=== PATIENT | female | born 1935 | race African-American/Black ===

== ENCOUNTER 2018-06-02 07:48 | Inpatient (IN) ==
[2018-06-02] MEDS ORDERED: Sod Chloride 0.9% Inj 1,000 ML IV.SIG ONE (08:48)
[2018-06-02] MEDS ORDERED: Piperacil/Tazo 3.375 GM Premix 50 ML IV.SIG ONE (08:48)
[2018-06-02] MEDS ORDERED: Vancomycin Inj 1 GM/200 ML PIGGYBACK IV.SIG ONE (08:48)
[2018-06-02] MEDS ORDERED: Vancomycin Inj 1,000 MG in Sodium Chlor 0.9% Inj 250 ML IV.SIG ONE (09:00)
--- NOTE | 2018-06-02 09:02 | ED ---
HPI General Chief Complaint: Altered Mental Status Stated Complaint: Medical/Evac Time Seen by Provider: 06/02/18 08:42 Source: family and EMS Mode of arrival: EMS Limitations: physical limitation History of Present Illness HPI narrative: 82-year-old female was brought in by EMS for altered mental status. Family member states that patient started having fever and lethargy yesterday. Patient started having difficulty breathing yesterday afternoon evening. Patient was given nebulizer treatment. Patient has history of COPD. Patient became disoriented yesterday. Patient has increasing lethargy and disorientation this morning. EMS was called. Patient was brought to the ED for evaluation. Family member reported no coughing congestion. Patient was given Tylenol for fever yesterday. Family member states that patient came in contact with sick family member recently. Patient has history of hypertension. Family member reported no history of CVA. Family member reported no history of surgery. Patient also has history of Parkinson disease. complaint: altered mental status Onset (ago): day(s) Timing confirmed by: family member Severity: moderate Consistency of symptoms: getting worse Context: unknown Associated symptoms: weakness Treatments prior to arrival: IV fluid Related Data Home Medications Medication Instructions Recorded Confirmed No Known Home Medications 06/02/18 06/02/18 Allergies Allergy/AdvReac Type Severity Reaction Status Date / Time carbidopa Allergy Lethargy Verified 06/02/18 08:57 duloxetine [From Cymbalta] Allergy Nausea Verified 06/02/18 08:57 levodopa [From Sinemet] AdvReac Lethargy Verified 06/02/18 08:57 Review of Systems Except as stated in HPI: all other systems reviewed are negative [facility] Medical History Medical History COPD (chronic obstructive pulmonary disease) (Acute) GERD (gastroesophageal reflux disease) (Acute) Hiatal hernia (Acute) Hyperlipidemia (Acute) Hypertension (Acute) Parkinsons (Acute) Sleep apnea (Acute) TIA (transient ischemic attack) (Acute) Surgical History Surgical History History of cholecystectomy (Acute) Social History Social History Substance History: Unable to Obtain Smoking Status: Unknown if ever smoked How Often Do You Have a Drink Containing Alcohol: Unable to Obtain Recent Travel in [place] within the Last 8 Weeks: No Recent Out of Country Travel within the Last 8 Weeks: No Immunization History Tetanus Immunization: Unable to Assess Hx Influenza Vaccine This Season: Unable to Assess Exam Narrative Exam Narrative: GENERAL: Well-nourished, well-developed patient. SKIN: Focused skin assessment warm/dry. HEAD: Normocephalic. EYES: No scleral icterus. No injection or drainage. Left pupil slightly larger than the right pupil. Both nonreactive. Status post cataract surgery. NECK: Supple, trachea midline. No JVD or lymphadenopathy. No meningismus CARDIOVASCULAR: Regular rate and rhythm without murmurs, gallops, or rubs. RESPIRATORY: Breath sounds equal bilaterally. No accessory muscle use. GASTROINTESTINAL: Abdomen soft, non-tender, nondistended. MUSCULOSKELETAL: No cyanosis, or edema. BACK: Nontender without obvious deformity. No CVA tenderness. Neurologic exam: Patient is lethargic lying in bed noncommunicable. Patient responded to pain stimuli. Patient does not move extremity on command. Deep tendon reflexes 1+ and equal. Negative Babinski. Course Initial Documented Vital Signs Temperature 99.9 F H 06/02/18 07:50 Pulse Rate 128 H 06/02/18 07:50 Respiratory Rate 34 H 06/02/18 07:50 Blood Pressure 134/61 06/02/18 07:50 Pulse Oximetry 94 L 06/02/18 07:50 Last Documented Vital Signs Temperature 99.9 F H 06/02/18 07:50 Pulse Rate 124 H 06/02/18 10:06 Respiratory Rate 20 06/02/18 10:06 Blood Pressure 134/61 06/02/18 07:50 Pulse Oximetry 96 06/02/18 10:06 Medical Decision Making [facility] Narrative Medical decision making narrative: 82-year-old female was found to be a EMS for altered mental status. Patient has fever, tachycardic and noncommunicable. Sepsis protocol started. Normal saline solution 1 L IV bolus. Vancomycin 1 g IV given. Zosyn 3.375 g IV given. Lab Data Lab results reviewed: Yes I reviewed the patient's lab results. Result diagrams: 06/02/18 08:20 06/02/18 08:20 Lab Results 06/02/18 06/02/18 06/02/18 Range/Units 08:20 08:20 08:20 WBC 7.4 (4.0-11.0) th/mm3 RBC 4.36 (4.00-5.30) mil/mm3 Hgb 12.0 (11.6-15.3) gm/dL Hct 37.6 (35.0-46.0) % MCV 86.2 (80.0-100.0) fL MCH 27.5 (27.0-34.0) pg MCHC 31.9 L (32.0-36.0) % RDW 16.5 (11.6-17.2) % Plt Count 149 L (150-450) th/mm3 MPV 9.7 (7.0-11.0) fL Prelim Diff (Auto) Slide review pending Neut % (Auto) 91.2 H (16.0-70.0) % Lymph % (Auto) 7.8 L (9.0-44.0) % [place] % (Auto) 0.5 (0.0-8.0) % Eos % (Auto) 0.3 (0.0-4.0) % Baso % (Auto) 0.2 (0.0-2.0) % Neut # (Auto) 6.8 (1.8-7.7) th/mm3 Lymph # (Auto) 0.6 L (1.0-4.8) th/mm3 [place] # (Auto) 0.0 (0.0-0.9) th/mm3 Eos # (Auto) 0.0 (0.0-0.4) th/mm3 Baso # (Auto) 0.0 (0.0-0.2) th/mm3 WBC Differential . Diff Scan Auto diff confirmed Differential Comment . Toxic Vacuolation Present H (None) Platelet Estimate Low L (Normal) Platelet Morphology Normal (Normal) Ovalocytes 1+ H (None) Acanthocytes (Spur) 2+ H (None) PT 13.6 H (9.8-11.6) sec INR 1.3 Ratio APTT 28.9 (24.3-30.1) sec Sodium 146 H (136-145) meq/L Potassium 3.6 (3.5-5.1) meq/L Chloride 113 H (98-107) meq/L Carbon Dioxide 17.0 L (21.0-32.0) meq/L Anion Gap 16 H (5-15) meq/L BUN 16 (7-18) mg/dL Creatinine 0.95 (0.50-1.00) mg/dL Estimated GFR 61 L (>89) mL/min Random Glucose 75 (74-106) mg/dL Lactic Acid (0.4-2.0) mmol/L Calcium 8.6 (8.5-10.1) mg/dL Total Bilirubin 0.9 (0.2-1.0) mg/dL AST 16 (15-37) U/L ALT 9 L (10-53) U/L Alkaline Phosphatase 118 H (45-117) U/L Ammonia (11-32) mcmol/L Total Creatine Kinase 75 (26-192) U/L Troponin I Less than 0.02 L (0.02-0.05) ng/mL Total Protein 6.2 L (6.4-8.2) g/dL Albumin 2.5 L (3.4-5.0) g/dL TSH 5.790 H (0.358-3.740) uIU/mL Urine Color (Yellw/Straw) Urine Clarity (Clear) Urine pH (5.0-8.5) Ur Specific [place] (1.002-1.035) Urine Protein (Neg-Trace) mg/dL Urine Glucose (UA) (Negative) mg/dL Urine Ketones (Negative) mg/dL Urine Occult Blood (Negative) Urine Nitrate (Negative) Urine Bilirubin (Negative) Urine Urobilinogen (Less than 2) mg/dL Ur Leukocyte Esterase (Negative) Urine RBC (0-3) /hpf Urine WBC (0-5) /hpf Ur Squamous Epith Cells (0-5) /hpf Urine Bacteria (None) /hpf Urine Mucus (Occasional) /lpf Micro UA Comment Urine Culture Comments 06/02/18 06/02/18 06/02/18 Range/Units 09:00 09:00 09:00 WBC (4.0-11.0) th/mm3 RBC (4.00-5.30) mil/mm3 Hgb (11.6-15.3) gm/dL Hct (35.0-46.0) % MCV (80.0-100.0) fL MCH (27.0-34.0) pg MCHC (32.0-36.0) % RDW (11.6-17.2) % Plt Count (150-450) th/mm3 MPV (7.0-11.0) fL Prelim Diff (Auto) Neut % (Auto) (16.0-70.0) % Lymph % (Auto) (9.0-44.0) % [place] % (Auto) (0.0-8.0) % Eos % (Auto) (0.0-4.0) % Baso % (Auto) (0.0-2.0) % Neut # (Auto) (1.8-7.7) th/mm3 Lymph # (Auto) (1.0-4.8) th/mm3 [place] # (Auto) (0.0-0.9) th/mm3 Eos # (Auto) (0.0-0.4) th/mm3 Baso # (Auto) (0.0-0.2) th/mm3 WBC Differential Diff Scan Differential Comment Toxic Vacuolation (None) Platelet Estimate (Normal) Platelet Morphology (Normal) Ovalocytes (None) Acanthocytes (Spur) (None) PT (9.8-11.6) sec INR Ratio APTT (24.3-30.1) sec Sodium (136-145) meq/L Potassium (3.5-5.1) meq/L Chloride (98-107) meq/L Carbon Dioxide (21.0-32.0) meq/L Anion Gap (5-15) meq/L BUN (7-18) mg/dL Creatinine (0.50-1.00) mg/dL Estimated GFR (>89) mL/min Random Glucose (74-106) mg/dL Lactic Acid 6.3 H* (0.4-2.0) mmol/L Calcium (8.5-10.1) mg/dL Total Bilirubin (0.2-1.0) mg/dL AST (15-37) U/L ALT (10-53) U/L Alkaline Phosphatase (45-117) U/L Ammonia 59 H (11-32) mcmol/L Total Creatine Kinase (26-192) U/L Troponin I (0.02-0.05) ng/mL Total Protein (6.4-8.2) g/dL Albumin (3.4-5.0) g/dL TSH (0.358-3.740) uIU/mL Urine Color Yellow (Yellw/Straw) Urine Clarity Hazy H (Clear) Urine pH 8.0 (5.0-8.5) Ur Specific [place] 1.010 (1.002-1.035) Urine Protein Negative (Neg-Trace) mg/dL Urine Glucose (UA) Negative (Negative) mg/dL Urine Ketones Negative (Negative) mg/dL Urine Occult Blood Moderate H (Negative) Urine Nitrate Positive H (Negative) Urine Bilirubin Negative (Negative) Urine Urobilinogen Less than 2 (Less than 2) mg/dL Ur Leukocyte Esterase Moderate H (Negative) Urine RBC 1 (0-3) /hpf Urine WBC 14 H (0-5) /hpf Ur Squamous Epith Cells 2 (0-5) /hpf Urine Bacteria Many H (None) /hpf Urine Mucus Few H (Occasional) /lpf Micro UA Comment Cath-culture ind Urine Culture Comments Cath-cult indicated Imaging Data Radiologist's impression: ITS Impressions Chest X-Ray 06/02/18 08:45 CONCLUSION: 1. Right basilar opacity representing either acute airspace disease or parenchymal mass. 2. Calcified ascending thoracic aorta. 3. Dorsal column stimulator. Head CT 06/02/18 08:45 CONCLUSION: 1. Advanced cerebral white matter disease characteristic of chronic microvascular ischemic changes 2. No evidence of acute infarct, hemorrhage, mass or edema. 3. Left-sided cochlear implant device. Discharge Plan Discharge Disposition Patient Disposition: 30 Still Patient Discharge Details Diagnosis: Sepsis, UTI (urinary tract infection) Physicians Team ED Provider: Gio Tinoco Primary Care Provider: Sergio Tinsley Rxs /Orders / Referrals /Forms Prescriptions: No Action No Known Home Medications RF: 0 Discharge Interventions Interventions: Vital Signs Last Done: 06/02/18 10:06 Status ED Status: With Doctor
[2018-06-02 09:48] LABS: Activated Partial Thrombo Time 28.9 sec (24.3-30.1); INR 1.3 Ratio; Prothrombin Time 13.6 sec (9.8-11.6)
[2018-06-02 09:51] LABS: Baso % (Auto) 0.2 % (0.0-2.0); Eos % (Auto) 0.3 % (0.0-4.0); Hematocrit 37.6 % (35.0-46.0); Lymph # (Auto) 0.6 th/mm3 (1.0-4.8); Lymph % (Auto) 7.8 % (9.0-44.0); Mean Corpuscular HGB Conc 31.9 % (32.0-36.0); Mean Corpuscular Hemoglobin 27.5 pg (27.0-34.0); Mean Corpuscular Volume 86.2 fL (80.0-100.0); Mean Platelet Volume 9.7 fL (7.0-11.0); Mono % (Auto) 0.5 % (0.0-8.0); Neut # (Auto) 6.8 th/mm3 (1.8-7.7); Neut % (Auto) 91.2 % (16.0-70.0); Platelet Count 149 th/mm3 (150-450); Red Blood Count 4.36 mil/mm3 (4.00-5.30); Red Cell Distribution Width 16.5 % (11.6-17.2); White Blood Count 7.4 th/mm3 (4.0-11.0)
--- NOTE | 2018-06-02 09:55 | XR ---
EXAM DATE: 06/02/2018 9:20 AM EDT AGE/SEX: 89 years / Female INDICATIONS: Sepsis alert. CLINICAL DATA: This is the patient's initial encounter. Patient reports that signs and symptoms have been present for 1 day and indicates a pain score of Nonresponsive. MEDICAL/SURGICAL HISTORY: Non-responsive. Non-responsive. COMPARISON: No prior exams available for comparison. FINDINGS: Focal parenchymal opacity is identified in the right lung base. The left lung is clear. Heart is mildly enlarged. There is diffuse calcification of the ascending thoracic aorta. Dorsal column stimulator is noted in place. CONCLUSION: 1. Right basilar opacity representing either acute airspace disease or parenchymal mass. 2. Calcified ascending thoracic aorta. 3. Dorsal column stimulator. Electronically signed by: Zachery Matthews MD 06/02/2018 9:54 AM EDT
--- NOTE | 2018-06-02 10:01 | CT ---
EXAM DATE: 06/02/2018 9:50 AM EDT AGE/SEX: 89 years / Female INDICATIONS: Altered mental status. CLINICAL DATA: This is the patient's initial encounter. Patient reports that signs and symptoms have been present for 1 day and indicates a pain score of Nonresponsive. MEDICAL/SURGICAL HISTORY: Chronic obstructive pulmonary disease. Hypertension. None. RADIATION DOSE: 56.36 CTDI (mGy) COMPARISON: No prior exams available for comparison. TECHNIQUE: CT of the head without contrast. Using automated exposure control and adjustment of the mA and/or kV according to patient size, radiation dose was kept as low as reasonably achievable to ob tain optimal diagnostic quality images. DICOM format image data is available electronically for revi ew and comparison. FINDINGS: Significant hypodensity is evident throughout the cerebral white matter. There is central volume loss with enlargement of the lateral ventricles. Subarachnoid space and cisterns are mildly prominent. There are no characteristic findings of acute infarct, hemorrhage, mass effect or edema. A left-sided cochlear implant device is noted. CONCLUSION: 1. Advanced cerebral white matter disease characteristic of chronic microvascular ischemic changes 2. No evidence of acute infarct, hemorrhage, mass or edema. 3. Left-sided cochlear implant device. Electronically signed by: Zachery Matthews MD 06/02/2018 9:59 AM EDT
[2018-06-02 10:03] LABS: Albumin 2.5 g/dL (3.4-5.0); Anion Gap 16 meq/L (5-15); Aspartate Aminotransferase 16 U/L (15-37); Blood Urea Nitrogen 16 mg/dL (7-18); Calcium 8.6 mg/dL (8.5-10.1); Chloride 113 meq/L (98-107); Glomerular Filtration Rate 61 mL/min (>89); Glucose,Random 75 mg/dL (74-106); Potassium 3.6 meq/L (3.5-5.1); Sodium 146 meq/L (136-145)
[2018-06-02 10:04] LABS: Bacteria,Urine Many /hpf; Bilirubin,Urine Negative (Negative); Clarity,Urine Hazy (Clear); Color,Urine Yellow (Yellw/Straw); Glucose,Urine (UA) Negative (Negative); Leukocyte Esterase,Urine Moderate (Negative); Mucus,Urine Few /lpf (Occasional); Nitrite,Urine Positive (Negative); Squamous Epithelial Cell,Urine 2 /hpf (0-5)
[2018-06-02 10:12] LABS: Alanine Aminotransferase 9 U/L (10-53); Alkaline Phosphatase 118 U/L (45-117); Total Protein 6.2 g/dL (6.4-8.2)
[2018-06-02 10:15] LABS: Creatine Kinase 75 U/L (26-192)
[2018-06-02 10:36] LABS: Acanthocytes 2+; Ovalocytes 1+; Platelet Morphology Normal (Normal); Toxic Vacuolation Present
--- NOTE | 2018-06-02 12:16 | P.HP ---
History of Present Illness Primary Care Physician: Sergio Tinsley Chief Complaint: AMS brought in by family History of Present Illness: Patient currently listed as a Krystal Veras actual name Keyona Singleton date of . This is a 82 year old female patient with a past medical history which includes hypertension, COPD, spinal stenosis, GERD, LVH, obstructive sleep apnea on CPAP , depression and chronic back pain who is brought in today by her family for altered mental status. Patient at this time is lethargic able to awake and tell her name and location. Information Patient is usually able to converse, watch TV and eat a regular diet. Does take megace as needed at home for appetite. Family does not recall any coughing/choking after eating or drinking. Family member states that patient started having SOB, fever and disorientation yesterday. Patient started having difficulty breathing late yesterday afternoon which was resolved after nebulizer treatment x 3 at home. Fever resolved after Tylenol. Family members do not recall any increase in urination or foul smelling urine recently. Patient had been constipated taking warm liquids and stool softeners at home with minimal results. Patient has also been on Levsin four times a day for increased oral secretions. No new medications since January 2017. This AM patient was more lethargy and disorientation this morning. EMS was called and patient was brought to the ED for evaluation. Patient was treated for possible sepsis given Vancomyacin, Zosyn and Rocephin in the ER. Per daughter at bedside patient is more alert at this time than she was earlier today at home. Past Medical History HTN COPD Spinal stenosis GERD LVH JULI on CPAP at night Depression Chronic back pain 2D echo (06/17/2011): - LV with mild concentric hypertrophy - EF 55-60% - Diastolic dysfunction - Mild thickening of the aortic valve leaflets and mitral valve leaflets Past Surgical History ORIF of left arm fracture 08/05/15 Cholecystectomy GITA with BSO L3-5 laminectomy/microdiskectomy Gastric stimulator Cochlear implant EGD with dilatation Family History Noncontributory Social History Denies alcohol, tobacco or illicit drugs Her daughter lives with her and has done so for the last 1-1/2 years due to her general decline in patient's health 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 - Diagnosis (1) Metabolic encephalopathy Estimated Total Length of Stay (Days): 3 Plans for Post Hospital Care: Not yet determined Review of Systems unobtainable due to mental status PMFSH - History History Provided By: Foundry Operator / EMT - Medical History Medical History: Medical History (Last Reviewed 06/02/18 @ 09:00 by Gio Tinoco MD) COPD (chronic obstructive pulmonary disease) GERD (gastroesophageal reflux disease) Hiatal hernia Hyperlipidemia Hypertension Parkinsons Sleep apnea TIA (transient ischemic attack) - Surgical History Surgical History: Surgical History (Last Reviewed 06/02/18 @ 09:00 by Gio Tinoco MD) History of cholecystectomy - Tobacco History Smoking Status: Unknown if ever smoked - Alcohol History How Often Do You Have a Drink Containing Alcohol: Unable to Obtain - Substance Use History Substance History: Unable to Obtain - Travel History Recent Travel in the [place] Within the Last 8 Weeks: No Recent Travel Out of the Country Within the Last 8 Weeks: No - Immunization History Tetanus Immunization: Unable to Assess Hx Influenza Vaccine This Season: Unable to Assess Medications and Allergies Active Medications: Active Medications Sodium Chloride (Ns Flush) 2 ml IV.FLUSH PRN PRN PRN Reason: FLUSH AFTER USING IV ACCESS Allergies Allergy/AdvReac Type Severity Reaction Status Date / Time carbidopa Allergy Lethargy Verified 06/02/18 08:57 duloxetine [From Cymbalta] Allergy Nausea Verified 06/02/18 08:57 levodopa [From Sinemet] AdvReac Lethargy Verified 06/02/18 08:57 Home Medications Medication Instructions Recorded Confirmed Type RX: albuterol sulfate 2.5 mg INHALATION Q4H PRN 06/02/18 06/02/18 History RX: amlodipine 5 mg PO DAILY 06/02/18 06/02/18 History RX: escitalopram oxalate 10 mg PO DAILY 06/02/18 06/02/18 History RX: gabapentin 600 mg PO QID 06/02/18 06/02/18 History RX: ipratropium-albuterol 3 ml INHALATION QID PRN 06/02/18 06/02/18 History RX: megestrol 40 mg PO BID PRN 06/02/18 06/02/18 History RX: omeprazole 20 mg PO DAILY 06/02/18 06/02/18 History calcium carbonate-vitamin D3 1 tab PO DAILY 06/02/18 06/02/18 History [Calcium 600 + D(3)] docusate sodium [Colace] 100 mg PO BID 06/02/18 06/02/18 History hyoscyamine sulfate [Levsin] 0.25 mg PO QID PRN 06/02/18 06/02/18 History Exam Vital signs: Vital Signs 06/02/18 07:50 06/02/18 08:45 06/02/18 09:28 Temperature 99.9 F H Pulse Rate 128 H Respiratory Rate 34 H Blood Pressure 134/61 Pulse Oximetry 94 L 96 100 06/02/18 10:06 06/02/18 11:00 Temperature Pulse Rate 124 H 110 H Respiratory Rate 20 17 Blood Pressure 155/73 H Pulse Oximetry 96 98 Intake & Output 06/01/18 06/02/18 06/02/18 18:59 06:59 18:59 Intake Total 0 / 0 Balance 0 / 0 Weight 68.039 kg Intake: IV 0 / 0 NS Inj 1,000 ML @ Wide Open IV. 0 / 0 SIG BOLUS ONE Rx#:[id number] Narrative: GENERAL: This is an 82 year old female patient lethargic but able to arouse, well-developed patient CARDIOVASCULAR: Regular rate and rhythm RESPIRATORY: diminished right lung base poor air movement GASTROINTESTINAL: Abdomen soft, non-tender, nondistended. hypoactive bowel sounds MUSCULOSKELETAL: Extremities without clubbing, cyanosis, or edema. BLE very weak able to wiggle bilateral toes unable to lift BLE off bed NEURO: lethargic but able to awake to voice. Oriented x 2. Moves all ext x4 very weak BLE Results - Labs CBC & Chem 7: 06/02/18 08:20 06/02/18 08:20 Labs: Laboratory Results - last 24 hr 06/02/18 06/02/18 06/02/18 08:20 08:20 08:20 WBC 7.4 RBC 4.36 Hgb 12.0 Hct 37.6 MCV 86.2 MCH 27.5 MCHC 31.9 L RDW 16.5 Plt Count 149 L MPV 9.7 Prelim Diff (Auto) Slide review pending Neut % (Auto) 91.2 H Lymph % (Auto) 7.8 L [place] % (Auto) 0.5 Eos % (Auto) 0.3 Baso % (Auto) 0.2 Neut # (Auto) 6.8 Lymph # (Auto) 0.6 L [place] # (Auto) 0.0 Eos # (Auto) 0.0 Baso # (Auto) 0.0 WBC Differential . Diff Scan Auto diff confirmed Differential Comment . Toxic Vacuolation Present H Platelet Estimate Low L Platelet Morphology Normal Ovalocytes 1+ H Acanthocytes (Spur) 2+ H PT 13.6 H INR 1.3 APTT 28.9 Sodium 146 H Potassium 3.6 Chloride 113 H Carbon Dioxide 17.0 L Anion Gap 16 H BUN 16 Creatinine 0.95 Estimated GFR 61 L Random Glucose 75 Lactic Acid Calcium 8.6 Total Bilirubin 0.9 AST 16 ALT 9 L Alkaline Phosphatase 118 H Ammonia Total Creatine Kinase 75 Troponin I Less than 0.02 L Total Protein 6.2 L Albumin 2.5 L TSH 5.790 H Urine Color Urine Clarity Urine pH Ur Specific [place] Urine Protein Urine Glucose (UA) Urine Ketones Urine Occult Blood Urine Nitrate Urine Bilirubin Urine Urobilinogen Ur Leukocyte Esterase Urine RBC Urine WBC Ur Squamous Epith Cells Urine Bacteria Urine Mucus Micro UA Comment Urine Culture Comments 06/02/18 06/02/18 06/02/18 09:00 09:00 09:00 WBC RBC Hgb Hct MCV MCH MCHC RDW Plt Count MPV Prelim Diff (Auto) Neut % (Auto) Lymph % (Auto) [place] % (Auto) Eos % (Auto) Baso % (Auto) Neut # (Auto) Lymph # (Auto) [place] # (Auto) Eos # (Auto) Baso # (Auto) WBC Differential Diff Scan Differential Comment Toxic Vacuolation Platelet Estimate Platelet Morphology Ovalocytes Acanthocytes (Spur) PT INR APTT Sodium Potassium Chloride Carbon Dioxide Anion Gap BUN Creatinine Estimated GFR Random Glucose Lactic Acid 6.3 H* Calcium Total Bilirubin AST ALT Alkaline Phosphatase Ammonia 59 H Total Creatine Kinase Troponin I Total Protein Albumin TSH Urine Color Yellow Urine Clarity Hazy H Urine pH 8.0 Ur Specific [place] 1.010 Urine Protein Negative Urine Glucose (UA) Negative Urine Ketones Negative Urine Occult Blood Moderate H Urine Nitrate Positive H Urine Bilirubin Negative Urine Urobilinogen Less than 2 Ur Leukocyte Esterase Moderate H Urine RBC 1 Urine WBC 14 H Ur Squamous Epith Cells 2 Urine Bacteria Many H Urine Mucus Few H Micro UA Comment Cath-culture ind Urine Culture Comments Cath-cult indicated - Imaging Impressions Chest X-Ray 06/02/18 08:45 CONCLUSION: 1. Right basilar opacity representing either acute airspace disease or parenchymal mass. 2. Calcified ascending thoracic aorta. 3. Dorsal column stimulator. Head CT 06/02/18 08:45 CONCLUSION: 1. Advanced cerebral white matter disease characteristic of chronic microvascular ischemic changes 2. No evidence of acute infarct, hemorrhage, mass or edema. 3. Left-sided cochlear implant device. Caprini VTE Risk Assessment Caprini VTE Risk Assessment: Moderate/High Risk (score >= 2) Caprini Risk Assessment Model: Point Value = 1 Point Value = 2 Point Value = 3 Point Value = 5 Age 41-60 Minor surgery BMI > 25 kg/m2 Swollen legs Varicose veins or History of unexplained or recurrent spontaneous Oral contraceptives or hormone replacement Sepsis (< 1 month) Serious lung disease, including pneumonia (< 1 month) Abnormal pulmonary function Acute myocardial infarction Congestive heart failure (< 1 month) History of inflammatory bowel disease Medical patient at bed rest Age 61-74 Arthroscopic surgery Major open surgery (> 45 min) Laparoscopic surgery (> 45 min) Malignancy Confined to bed (> 72 hours) Immobilizing plaster cast Central venous access Age >= 75 History of VTE Family history of VTE Factor V Leiden Prothrombin [id number] Lupus anticoagulant Anticardiolipin antibodies Elevated serum homocysteine Heparin-induced thrombocytopenia Other congenital or acquired thrombophilia Stroke (< 1 month) Elective arthroplasty Hip, pelvis, or leg fracture Acute spinal cord injury (< 1 month) Prophylaxis Regimen: Total Risk Factor Score Risk Level Prophylaxis Regimen 0-1 Low Early ambulation 2 Moderate Order ONE of the following: *Sequential Compression Device (SCD) *Heparin 5000 units SQ BID 3-4 Higher Order ONE of the following medications: *Heparin 5000 units SQ TID *Enoxaparin/Lovenox 40 mg SQ daily (WT < 150 kg, CrCl > 30 mL/min) *Enoxaparin/Lovenox 30 mg SQ daily (WT < 150 kg, CrCl > 10-29 mL/min) *Enoxaparin/Lovenox 30 mg SQ BID (WT < 150 kg, CrCl > 30 mL/min) AND/OR *Sequential Compression Device (SCD) 5 or more Highest Order ONE of the following medications: *Heparin 5000 units SQ TID (Preferred with Epidurals) *Enoxaparin/Lovenox 40 mg SQ daily (WT < 150 kg, CrCl > 30 mL/min) *Enoxaparin/Lovenox 30 mg SQ daily (WT < 150 kg, CrCl > 10-29 mL/min) *Enoxaparin/Lovenox 30 mg SQ BID (WT < 150 kg, CrCl > 30 mL/min) AND *Sequential Compression Device (SCD) Assessment and Plan - Assessment (1) Metabolic encephalopathy Code(s): G93.41 - Metabolic encephalopathy Status: Acute Plan: AMS, metabolic encephalopathy RLL pna, possible aspiration pna COPD UTI Patient currently listed as a Krystal Veras actual name Keyona Singleton date of . This is a 82 year old female patient with a past medical history which includes hypertension, COPD, spinal stenosis, GERD, LVH, obstructive sleep apnea on CPAP , depression and chronic back pain who is brought in today by her family for altered mental status. - Family member states that patient started having SOB, fever and disorientation yesterday. Patient started having difficulty breathing late yesterday afternoon -This AM patient was more lethargy and disorientation this morning. EMS was called and patient was brought to the ED for evaluation. Patient was treated for possible sepsis given Vancomyacin, Zosyn and Rocephin in the ER. Per daughter at bedside patient is more alert at this time than she was earlier today at home. - LA 6.3 - CT head reviewed and reveals: 1. Advanced cerebral white matter disease characteristic of chronic microvascular ischemic changes 2. No evidence of acute infarct, hemorrhage, mass or edema. 3. Left-sided cochlear implant device. - CXR reviewed and reveals: 1. Right basilar opacity representing either acute airspace disease or parenchymal mass. 2. Calcified ascending thoracic aorta. 3. Dorsal column stimulator - speech therapy consulted - Image reviewed with family members at bedside - CT chest ordered top further evaluate - Duonebs Q6H while awake and PRN - UA reviewed and reveals: positive nitrates, moderate Leukocyte Esterase, many bacteria - Urine culture pending Elevated ammonia Constipation on admission Ammonia 59 lactulose daily repeat ammonia level in AM KUB stool softeners HTN Resume home amlodipine monitor BP GERD Continue home omeprazole Depression Continue home Lexapro daily PT consulted DVT prophylaxis with SCDs Discussed CODE status with patient and patient's family at bedside - Full Code at this time
[2018-06-02] MEDS ORDERED: Acetaminophen 325 MG Tablet PO PRN (12:36)
[2018-06-02] MEDS ORDERED: Sodium Chloride 0.45 % Inj 1,000 ML IV.CONT SCH (12:45)
--- NOTE | 2018-06-02 13:56 | XR ---
EXAM DATE: 06/02/2018 1:38 PM EDT AGE/SEX: 89 years / Female INDICATIONS: Constipation. CLINICAL DATA: This is the patient's initial encounter. Patient reports that signs and symptoms have been present for 1 day and indicates a pain score of Nonresponsive. MEDICAL/SURGICAL HISTORY: Non-responsive. Non-responsive. COMPARISON: No prior exams available for comparison. FINDINGS: There is some air distention of the gastric lumen. Stool is identified in the rectal vault. Otherwis e, paucity of air within the bowel loops. No pneumoperitoneum. Bibasilar atelectatic changes with nato e elevation of the right hemidiaphragm. Spinal stimulator with tip in the mid dorsal spine. CONCLUSION: 1. Stool in the rectal vault. Air distention of the gastric lumen. Otherwise, nonobstructive bowel g as pattern with a velocity of air throughout the abdomen. 2. Spinal stimulator tip in the mid dorsal spine. Electronically signed by: True Ayoub MD 06/02/2018 1:55 PM EDT
[2018-06-02] MEDS ORDERED: Sod Phosphate/Sod Biphosphate (Adult) Enema 133 ML Bottle RECTAL ONE (15:05)
--- NOTE | 2018-06-02 15:44 | CT ---
EXAM DATE: 06/02/2018 3:21 PM EDT AGE/SEX: 89 years / Female INDICATIONS: ABNORMAL CHEST XRAY,MASS CLINICAL DATA: This is the patient's initial encounter. Patient reports that signs and symptoms have been present for 1 day and indicates a pain score of Nonresponsive. MEDICAL/SURGICAL HISTORY: Chronic obstructive pulmonary disease. Hypertension. PARKINSON None. RADIATION DOSE: 12.15 CTDI (mGy) COMPARISON: No prior exams available for comparison. TECHNIQUE: Multiple contiguous axial images were obtained through the chest without contrast. Image s were obtained in suspended respiration using multiple row detector helical technique. Using automa mazin exposure control and adjustment of the mA and/or kV according to patient size, radiation dose was kept as low as reasonably achievable to obtain optimal diagnostic quality images. DICOM format imag e data is available electronically for review and comparison. FINDINGS: Lungs: Subpleural airspace disease is identified in the right lung base. There is minimal atelectasi s in the lingula. There are no suspicious pulmonary masses. Mediastinum: Heart is mildly enlarged. The ascending thoracic aorta is diffusely calcified. The esop hagus is distended and fluid-filled. There are no mediastinal masses or evidence of lymphadenopathy. Pleurae: Small right pleural effusion is noted. Axillae: Unremarkable. Bony Structures: Bones are demineralized. Dorsal column stimulator is identified in the thoracic reg ion. Miscellaneous: A 4.5 cm density mass is identified within the left hepatic lobe. Absence of the righ t breast is noted. CONCLUSION: 1. Right basilar subpleural airspace disease and small effusion. 2. No suspicious pulmonary masses. 3. Distended fluid-filled fluid-filled esophagus 4. Status post right mastectomy. 5. Dorsal column stimulator. Electronically signed by: Zachery Matthews MD 06/02/2018 3:43 PM EDT
[2018-06-02] MEDS: Piperacil/Tazo 3.375 GM Premix 50 ML IV.SIG SCH ×2 (17:48→20:57)
--- NOTE | 2018-06-02 19:12 | ECG ---
Date Performed: 06/02/2018 Time Performed: 07:50:14 PTAGE: 89 years EKG: PROBABLE SINUS TACHYCARDIA CANNOT RULE OUT ATRIAL FLUTTER WITH 2:1 HEART BLOCK NO PREVIOUS TRACING DOCTOR: Michele Oden Interpretating Date/Time 06/02/2018 19:11:22
[2018-06-02] MEDS: Senna/Docusate Sodium 8.6/50 MG Tablet PO SCH (20:58)
[2018-06-02] MEDS: Aspirin 300 MG Supp RECTAL SCH (20:58)
[2018-06-02] MEDS ORDERED: Sodium Chlor 0.9% Inj 500 ML IV.SIG SCH (21:00)
--- NOTE | 2018-06-02 21:02 | CT ---
EXAM DATE: 06/02/2018 8:51 PM EDT AGE/SEX: 89 years / Female INDICATIONS: Facial droop. CLINICAL DATA: This is the patient's initial encounter. Patient reports that signs and symptoms have been present for 1 day and indicates a pain score of Nonresponsive. MEDICAL/SURGICAL HISTORY: Chronic obstructive pulmonary disease. Gastroesophageal reflux disease. Hiatal hernia. Hypertension, Parkinson's, TIA. Cholecystectomy. Cochlear implant. RADIATION DOSE: 38.35 CTDI (mGy) COMPARISON: [facility] [place]. . TECHNIQUE: CT of the head without contrast. Using automated exposure control and adjustment of the mA and/or kV according to patient size, radiation dose was kept as low as reasonably achievable to ob tain optimal diagnostic quality images. DICOM format image data is available electronically for revi ew and comparison. FINDINGS: Large amount of metallic streak artifact from patient's left cochlear implant again noted. No intracr anial hemorrhage or hematoma demonstrated. No mass, mass effect or midline shift seen. Chronic low-at tenuation in the periventricular white matter again noted. CONCLUSION: 1. Limited study without evidence of an acute intracranial abnormality. 2. Chronic white matter changes are again noted. Electronically signed by: Sandeep Wilkinson MD 06/02/2018 9:01 PM EDT
[2018-06-02] MEDS ORDERED: Dextrose 50% in Water Syringe 50 ML ONE ×2 (21:08→22:42)
--- NOTE | 2018-06-02 21:23 | P.PN ---
Subjective Interval history: I was contacted to evaluate patient regarding altered mental status with reported facial droop. I spoke with Dr. Doherty who admitted the patient earlier today and he said that he did not notice much of a facial droop on his evaluation earlier this morning. Family reports that patient actually had a facial droop intermittently throughout the day but improved with IV fluid and antibiotics earlier today. However when she came up to the intensive care unit around 5 PM they noted she had more of a facial droop particularly of the left lower lip. She is also been somewhat less responsive over the last couple of hours. She was admitted earlier today for sepsis likely associated with pneumonia and possibly urinary etiology as well. Repeat CT brain tonight shows no acute findings. I did review her labs and noted her sugar to be 75 earlier today so I did a stat Accu-Chek here and her bedside glucose was 33. We have now administered D50 and will await further evaluation of her mentation and responsiveness. I have also initiated the hypoglycemic protocol. Physical Exam Vital signs: Vital Signs 06/02/18 07:50 06/02/18 08:45 06/02/18 09:28 Temperature 99.9 F H Pulse Rate 128 H Respiratory Rate 34 H Blood Pressure 134/61 Pulse Oximetry 94 L 96 100 06/02/18 10:06 06/02/18 11:00 06/02/18 14:14 Temperature Pulse Rate 124 H 110 H 108 H Respiratory Rate 20 17 18 Blood Pressure 155/73 H 117/56 L Pulse Oximetry 96 98 06/02/18 15:28 06/02/18 18:25 Temperature 97.6 F Pulse Rate 110 H Respiratory Rate 20 18 Blood Pressure 110/55 L 97/57 L Pulse Oximetry 96 96 Intake & Output 06/02/18 06/02/18 06/03/18 06:59 18:59 06:59 Intake Total 0 / 0 Balance 0 / 0 Weight 68.039 kg Intake: IV 0 / 0 NS Inj 1,000 ML @ Wide Open IV. 0 / 0 SIG BOLUS ONE Rx#:[id number] Narrative: GENERAL: Lethargic. Minimally responsive initially. Possibly 15 minutes after sugar administration patient was able to open her eyes spontaneously and was able to squeeze my hands with both of her upper extremities to command. SKIN: Xerotic. HEAD: Normocephalic. Extraocular motion intact. Pupils equally round and reactive. EYES: No scleral icterus. No injection or drainage. NECK: Supple, trachea midline. No JVD or lymphadenopathy. CARDIOVASCULAR: Regular rate and rhythm without murmurs, gallops, or rubs. Rate approximately 110 on my exam. RESPIRATORY: Breath sounds equal bilaterally. No accessory muscle use. GASTROINTESTINAL: Abdomen soft, non-tender, nondistended. Bowel sounds normal peer MUSCULOSKELETAL: No cyanosis, or edema. Chronic posttraumatic changes left upper extremity. Patient was able to fur buyer with both upper extremities to command after sugar administration BACK: Nontender without obvious deformity. No CVA tenderness. Results - Labs CBC & Chem 7: 06/02/18 08:20 06/02/18 08:20 Laboratory Results - last 24 hr 06/02/18 06/02/18 06/02/18 08:20 08:20 08:20 WBC 7.4 RBC 4.36 Hgb 12.0 Hct 37.6 MCV 86.2 MCH 27.5 MCHC 31.9 L RDW 16.5 Plt Count 149 L MPV 9.7 Prelim Diff (Auto) Slide review pending Neut % (Auto) 91.2 H Lymph % (Auto) 7.8 L Stark % (Auto) 0.5 Eos % (Auto) 0.3 Baso % (Auto) 0.2 Neut # (Auto) 6.8 Lymph # (Auto) 0.6 L Stark # (Auto) 0.0 Eos # (Auto) 0.0 Baso # (Auto) 0.0 WBC Differential . Diff Scan Auto diff confirmed Differential Comment . Toxic Vacuolation Present H Platelet Estimate Low L Platelet Morphology Normal Ovalocytes 1+ H Acanthocytes (Spur) 2+ H PT 13.6 H INR 1.3 APTT 28.9 Sodium 146 H Potassium 3.6 Chloride 113 H Carbon Dioxide 17.0 L Anion Gap 16 H BUN 16 Creatinine 0.95 Estimated GFR 61 L Random Glucose 75 Lactic Acid Calcium 8.6 Total Bilirubin 0.9 AST 16 ALT 9 L Alkaline Phosphatase 118 H Ammonia Total Creatine Kinase 75 Troponin I Less than 0.02 L Total Protein 6.2 L Albumin 2.5 L TSH 5.790 H Urine Color Urine Clarity Urine pH Ur Specific Byron Urine Protein Urine Glucose (UA) Urine Ketones Urine Occult Blood Urine Nitrate Urine Bilirubin Urine Urobilinogen Ur Leukocyte Esterase Urine RBC Urine WBC Ur Squamous Epith Cells Urine Bacteria Urine Mucus Micro UA Comment Urine Culture Comments 06/02/18 06/02/18 06/02/18 09:00 09:00 09:00 WBC RBC Hgb Hct MCV MCH MCHC RDW Plt Count MPV Prelim Diff (Auto) Neut % (Auto) Lymph % (Auto) Stark % (Auto) Eos % (Auto) Baso % (Auto) Neut # (Auto) Lymph # (Auto) Stark # (Auto) Eos # (Auto) Baso # (Auto) WBC Differential Diff Scan Differential Comment Toxic Vacuolation Platelet Estimate Platelet Morphology Ovalocytes Acanthocytes (Spur) PT INR APTT Sodium Potassium Chloride Carbon Dioxide Anion Gap BUN Creatinine Estimated GFR Random Glucose Lactic Acid 6.3 H* Calcium Total Bilirubin AST ALT Alkaline Phosphatase Ammonia 59 H Total Creatine Kinase Troponin I Total Protein Albumin TSH Urine Color Yellow Urine Clarity Hazy H Urine pH 8.0 Ur Specific Byron 1.010 Urine Protein Negative Urine Glucose (UA) Negative Urine Ketones Negative Urine Occult Blood Moderate H Urine Nitrate Positive H Urine Bilirubin Negative Urine Urobilinogen Less than 2 Ur Leukocyte Esterase Moderate H Urine RBC 1 Urine WBC 14 H Ur Squamous Epith Cells 2 Urine Bacteria Many H Urine Mucus Few H Micro UA Comment Cath-culture ind Urine Culture Comments Cath-cult indicated 06/02/18 12:52 WBC RBC Hgb Hct MCV MCH MCHC RDW Plt Count MPV Prelim Diff (Auto) Neut % (Auto) Lymph % (Auto) Stark % (Auto) Eos % (Auto) Baso % (Auto) Neut # (Auto) Lymph # (Auto) Stark # (Auto) Eos # (Auto) Baso # (Auto) WBC Differential Diff Scan Differential Comment Toxic Vacuolation Platelet Estimate Platelet Morphology Ovalocytes Acanthocytes (Spur) PT INR APTT Sodium Potassium Chloride Carbon Dioxide Anion Gap BUN Creatinine Estimated GFR Random Glucose Lactic Acid 5.8 H* Calcium Total Bilirubin AST ALT Alkaline Phosphatase Ammonia Total Creatine Kinase Troponin I Total Protein Albumin TSH Urine Color Urine Clarity Urine pH Ur Specific Byron Urine Protein Urine Glucose (UA) Urine Ketones Urine Occult Blood Urine Nitrate Urine Bilirubin Urine Urobilinogen Ur Leukocyte Esterase Urine RBC Urine WBC Ur Squamous Epith Cells Urine Bacteria Urine Mucus Micro UA Comment Urine Culture Comments - Imaging Impressions Abdomen X-Ray 06/02/18 00:00 CONCLUSION: 1. Stool in the rectal vault. Air distention of the gastric lumen. Otherwise, nonobstructive bowel gas pattern with a velocity of air throughout the abdomen. 2. Spinal stimulator tip in the mid dorsal spine. Chest CT 06/02/18 00:00 CONCLUSION: 1. Right basilar subpleural airspace disease and small effusion. 2. No suspicious pulmonary masses. 3. Distended fluid-filled fluid-filled esophagus 4. Status post right mastectomy. 5. Dorsal column stimulator. Chest X-Ray 06/02/18 08:45 CONCLUSION: 1. Right basilar opacity representing either acute airspace disease or parenchymal mass. 2. Calcified ascending thoracic aorta. 3. Dorsal column stimulator. Head CT 06/02/18 08:45 CONCLUSION: 1. Advanced cerebral white matter disease characteristic of chronic microvascular ischemic changes 2. No evidence of acute infarct, hemorrhage, mass or edema. 3. Left-sided cochlear implant device. Head CT 06/02/18 20:37 CONCLUSION: 1. Limited study without evidence of an acute intracranial abnormality. 2. Chronic white matter changes are again noted. Assessment and Plan - Assessment (1) Sepsis Code(s): A41.9 - Sepsis, unspecified organism Status: Acute Plan: We will continue IV fluids. IV bolus given. Will discuss case with critical care medicine and have actually placed a call out to Dr. Morin (2) Metabolic encephalopathy Code(s): G93.41 - Metabolic encephalopathy Status: Acute Plan: Most recent mental status change likely associated with underlying hypoglycemia. Will initiate hypoglycemic protocol and monitor closely. No change on CT brain noted. Do not strongly suspect large stroke given rapid improvement in symptoms with sugar administration and the fact that she has no reflexive hypertension. - Plan Code Status: full Discussed Condition With: family, nurse, Dr Doherty This case further with Dr. Morin around 10:30 I have requested formal critical care consult as patient's mean arterial pressure still somewhat low around 45- 50 despite bolus given earlier. He will evaluate and assist with patient care. His assistance is much appreciated. (1) Sepsis Qualifiers: Sepsis type: sepsis due to unspecified organism Qualified Code(s): A41.9 - Sepsis, unspecified organism
[2018-06-02] MEDS: Norepinephrine Inj 16 MG in Sodium Chlor 0.9% Inj 234 ML IV.CONT PRN (22:30)
[2018-06-02] MEDS ORDERED: Sodium Chlor 0.9% Inj 500 ML IV.SIG ONE (22:31)
--- NOTE | 2018-06-02 22:32 | P.CONCC ---
History of Present Illness Service: Critical care medicine critical care medicine Consult date: 06/02/18 Requesting Physician: Kit Espino Reason for Consult: Respiratory failure/hypotension Primary Care Provider: Sergio Tinsley Chief Complaint: AMS brought in by family History of Present Illness: This is a 82-year-old aa female. Date of admission 06/02/2018. Date of consultation 06/02/2018. Past medical history includes Parkinson's disease, history of TIA, severe spinal stenosis, hypertension, hyperlipidemia, JULI, COPD , hiatal hernia, gastroesophageal reflux disease and depression. He has LVH and chronic low back pain. She presented to [place] today secondary to altered mental status. According to records, patient was having difficulty breathing yesterday which resolved after nebulizer treatment 3. She has had a fever which resolved with acetaminophen. She has noticed increasing secretions. In the ED, workup showed no acute findings. Patient was given vancomycin Pipracil/tazobactam and ceftriaxone. Blood cultures 2 and UA currently are pending at time of dictation. CT of the thorax were performed which revealed right basilar subpleural airspace disease, distended fluid-filled esophagus, a dorsal column stimulator and a 4.5 cm mass within the left hepatic lobe. Patient was hypoglycemic on admission and remained apical to be altered. Recent blood sugar was 33. She became hypotensive. A central line was emergently placed she was emergently intubated for airway protection. She is currently on norepinephrine drip at 12 mg/min and received vancomycin Pipracil/ tazobactam. 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 - Medical History Medical History: Medical History (Last Reviewed 06/02/18 @ 23:31 by Justice Morin MD) COPD (chronic obstructive pulmonary disease) GERD (gastroesophageal reflux disease) Hiatal hernia Hyperlipidemia Hypertension Parkinsons Sleep apnea TIA (transient ischemic attack) - Surgical History Surgical History: Surgical History (Last Reviewed 06/02/18 @ 23:31 by Justice Morin MD) History of cholecystectomy - Tobacco History Second Hand Smoke Exposure: No Smoking Status: Unknown if ever smoked - Alcohol History How Often Do You Have a Drink Containing Alcohol: Unable to Obtain - Substance Use History Substance History: Unable to Obtain - Travel History Recent Travel in the [place] Within the Last 8 Weeks: No Recent Travel Out of the Country Within the Last 8 Weeks: No - Immunization History Tetanus Immunization: Unable to Assess Hx Influenza Vaccine This Season: Unable to Assess Medications and Allergies Active Medications: Active Medications Acetaminophen (Tylenol) 650 mg PO Q4H PRN PRN Reason: Temp > 100.4 Albuterol (Duoneb Neb (Prn)) 1 ampul NEB Q4HR NEB PRN PRN Reason: SOB/wheezing Amlodipine Besylate (Norvasc) 5 mg PO DAILY [facility] Aspirin (Aspirin Supp) 300 mg RECTAL DAILY [facility] Last Admin: 06/02/18 20:58 Dose: 300 mg Escitalopram Oxalate (Lexapro) 10 mg PO DAILY [facility] Hyoscyamine (Levsin) 0.25 mg PO QID PRN PRN Reason: SECRETIONS Sodium Chloride (1/2 Normal Saline Inj) 1,000 mls @ 75 mls/hr IV.CONT .[id number] [facility] Last Admin: 06/02/18 14:50 Dose: 75 mls/hr Piperacillin/Tazobactam/Dextrose (Zosyn 3.375 Gm Premix) 50 mls @ 100 mls/hr IV.SIG Q6H [facility] Last Admin: 06/02/18 20:57 Dose: 100 mls/hr Sodium Chloride (Ns Inj) 500 mls @ 0 mls/hr IV.SIG BOLUS ONE Stop: 06/02/18 22:32 Norepinephrine Bitartrate 16 (mg/ Sodium Chloride) 250 mls @ 1.87 mls/hr IV.CONT TITRATE PRN; Protocol PRN Reason: See Protocol Lactulose (Lactulose Liq) 30 ml PO DAILY [facility] Last Admin: 06/02/18 14:50 Dose: 30 ml Pantoprazole Sodium (Protonix) 20 mg PO DAILY [facility] Senna/Docusate Sodium (Akiko-Colace) 1 tab PO BID [facility] Last Admin: 06/02/18 20:58 Dose: Not Given Sodium Chloride (Ns Flush) 2 ml IV.FLUSH PRN PRN PRN Reason: FLUSH AFTER USING IV ACCESS Terbutaline Sulfate (Brethine Inj) 1 mg SQ UNSCH PRN PRN Reason: For Extravasation Allergies Allergy/AdvReac Type Severity Reaction Status Date / Time carbidopa Allergy Lethargy Verified 06/02/18 08:57 duloxetine [From Cymbalta] Allergy Nausea Verified 06/02/18 08:57 levodopa [From Sinemet] AdvReac Lethargy Verified 06/02/18 08:57 Home Medications Medication Instructions Recorded Confirmed Type albuterol sulfate 2.5 mg INHALATION Q4H PRN 06/02/18 06/02/18 History amlodipine 5 mg PO DAILY 06/02/18 06/02/18 History calcium carbonate-vitamin D3 1 tab PO DAILY 06/02/18 06/02/18 History [Calcium 600 + D(3)] docusate sodium [Colace] 100 mg PO BID 06/02/18 06/02/18 History escitalopram oxalate 10 mg PO DAILY 06/02/18 06/02/18 History gabapentin 600 mg PO QID 06/02/18 06/02/18 History hyoscyamine sulfate [Levsin] 0.25 mg PO QID PRN 06/02/18 06/02/18 History ipratropium-albuterol 3 ml INHALATION QID PRN 06/02/18 06/02/18 History megestrol 40 mg PO BID PRN 06/02/18 06/02/18 History omeprazole 20 mg PO DAILY 06/02/18 06/02/18 History Physical Exam Vital signs: Vital Signs 06/02/18 07:50 06/02/18 08:45 06/02/18 09:28 Temperature 99.9 F H Pulse Rate 128 H Respiratory Rate 34 H Blood Pressure 134/61 Pulse Oximetry 94 L 96 100 06/02/18 10:06 06/02/18 11:00 06/02/18 14:14 Temperature Pulse Rate 124 H 110 H 108 H Respiratory Rate 20 17 18 Blood Pressure 155/73 H 117/56 L Pulse Oximetry 96 98 06/02/18 15:28 06/02/18 18:25 Temperature 97.6 F Pulse Rate 110 H Respiratory Rate 20 18 Blood Pressure 110/55 L 97/57 L Pulse Oximetry 96 96 Intake & Output 06/02/18 06/02/18 06/03/18 06:59 18:59 06:59 Intake Total 0 / 0 Balance 0 / 0 Weight 68.039 kg Intake: IV 0 / 0 NS Inj 1,000 ML @ Wide Open IV. 0 / 0 SIG BOLUS ONE Rx#:[id number] Narrative: GENERAL: Critically ill a female currently resting in bed orotracheally intubated SKIN: Warm and dry. No rash. HEAD: Normocephalic. EYES: No scleral icterus. No injection or drainage. NECK: Supple, trachea midline. No JVD or lymphadenopathy. Left IJ is clean dry and intact CARDIOVASCULAR: Tachycardic, RR. Without murmurs, gallops, or rubs. RESPIRATORY: Breath sounds equal bilaterally. No accessory muscle use. GASTROINTESTINAL: Abdomen soft, non-tender, nondistended. MUSCULOSKELETAL: No cyanosis, or edema. Right mastectomy noted. BACK: Nontender without obvious deformity. No CVA tenderness. neuro: Questionable facial droop. Currently withdrawing to noxious stimulation bilateral upper and lower extremities. Assessment and Plan - Assessment and Plan Plan: Neuro/Psych: Acute toxic metabolic encephalopathy History of TIAs Parkinson's disease Written for propofol/fentanyl drip for sedation/analgesia while intubated Goal of RASS -2 Daily sedation vacation Acetaminophen 650 mg by tube every 6 hours as needed fever CT brain 06/02 revealed no acute intracranial findings Holding escitalopram 10 mg daily/home medication. Holding gabapentin 600 mg 3 times daily. Continue aspirin 3 mg per rectum for now EEG brain ordered. CV: Severe sepsis History of essential hypertension History of hyperlipidemia Lactic acidosis History of LVH Currently D5 LR at 100 cc an hour Norepinephrine to maintain mean arterial pressure greater than equal to 92% Serial lactates until cleared Check troponin/CPK and echocardiogram in a.m. 2D echo 2010 revealed LVH. EF 55 6%. Diastolic dysfunction. Mild thickening aortic valve and mitral valve. Resp: Acute hypoxemic respiratory failure History of COPD Obstructive sleep apnea on CPAP at night PRVC 16/500/1/5/100 Ventilator bundle Albuterol/ipratropium aerosols every 4 hours with albuterol aerosols every 2 hours. Dyspnea Spontaneous breathing trial CT thorax revealed right basilar subpleural airspace disease and small pleural effusion. No masses. Follow-up on chest x-ray/ABG post intubation GI: Gastroesophageal reflux disease Hiatal hernia 4.5 cm left hepatic mass Transaminitis Patient is on omeprazole 20 mg daily at home. Holding megestrol 40 mg twice daily NGT to LIWS Lansoprazole for GI prophylaxis Docusate sodium/senna 1 tablet for bowel regimen Checking tumor markers CEA, CA-19-9, alpha-fetoprotein and hCG CT abdomen/pelvis revealed a 4.5 cm left hepatic mass Hepatitis panel/CPK ordered : English catheter for accurate I's and O's in a critically ill patient Endo: Hypoglycemia Elevated TSH Sliding scale insulin with Accu-Cheks to maintain euglycemia/every 4 hours low protocol aspart insulin TSH is elevated at 5.7. Check free T4/T3 Check cortisol level Renal: SCOUT Monitor urine output Accurate I's and O's Creatinine currently 2.26. Recheck in a.m. / Urine eos, Na+ and Cr pending Abd CT r/o hydro Heme: Thrombocytopenia Monitor CBC daily. Follow trends No indication for transfusion of blood products at this time ID: Severe sepsis of unclear source Day #1 vancomycin and piperacillin/tazobactam Blood cultures 2, urine 06/02 ordered. Sputum and influenza a and B ordered. FEN: Hypernatremia Change fluid to LR/D5 at 100 cc an hour. Will bolus with a liter LR at currently. Replace electrolytes per ICU electrolyte protocol MSK: Severe spinal stenosis with a history of dorsal column stimulator PT evaluate and treat Access -left IJ CVL day #1 Prophylaxis -GI -lansoprazole -DVT -SCD/heparin subcu 35 minutes critical care time consultation
[2018-06-02] MEDS ORDERED: Etomidate Inj 40 MG/20 ML Vial IV.PUSH ONE (22:51)
[2018-06-02 23:08] LABS: Alanine Aminotransferase 61 U/L (10-53); Alkaline Phosphatase 78 U/L (45-117); Anion Gap 15 meq/L (5-15); Aspartate Aminotransferase 331 U/L (15-37); Blood Urea Nitrogen 27 mg/dL (7-18); Calcium 7.8 mg/dL (8.5-10.1); Carbon Dioxide 17.8 meq/L (21.0-32.0); Chloride 116 meq/L (98-107); Glomerular Filtration Rate 23 mL/min (>89); Glucose,Random 93 mg/dL (74-106); Potassium 3.8 meq/L (3.5-5.1); Sodium 149 meq/L (136-145)
--- NOTE | 2018-06-02 23:13 | P.PCN ---
Date of procedure: 06/02/18 Pre-op diagnosis: Acute respiratory failure Post-op diagnosis: same Procedure: DATE: 06/02/2018 PROCEDURE: Orotracheal intubation INDICATION: Unresponsive DETAILS OF PROCEDURE The patient was placed in optimal position and preoxygenated with 100% FiO2 via bag valve mask. At the start oxygen saturation was 98%. The patient was administered 20 milligrams etomidate IV. I entered the oropharynx with a size 4 laryngoscope blade and obtained a grade 2 view of the airway. On single attempt a size 8.0 cuffed endotracheal tube was passed through the vocal cords. Correct tube location was confirmed with end tidal CO2 detector and by auscultating over bilateral lung barnett. The endotracheal tube was secured with adhesive tape at a depth of 23 cm at the lips. The patient was connected to the ventilator. The patient tolerated the procedure well without any apparent complications. Oxygen saturations were maintained greater than 95% all times. STAT chest x-ray pending at time of dictation.
--- NOTE | 2018-06-02 23:14 | P.PCN ---
Date of procedure: 06/02/18 Pre-op diagnosis: Acute respiratory failure Post-op diagnosis: same Procedure: DATE: 06/02/2018 CENTRAL LINE PLACEMENT: Left IJ vein. Ultrasound-guided INDICATION: Central venous access CONSENT Informed consent for procedure was obtained. DESCRIPTION OF THE PROCEDURE The patient was placed in supine position. The skin was cleansed with Chloraprep. Additional barrier precautions included large sterile drape, sterile gloves, sterile gown, face mask, and hat. 1 % lidocaine was used for local anesthesia. Under direct ultrasound guidance and on initial attempt, the vein was accessed with an introducer needle. The guide wire was advanced and the tract was dilated. Using Seldinger technique a 7 [place] 20 cm antimicrobial coated triple-lumen catheter was advanced to a depth of 20 centimeters. The guide wire was removed. All ports had good return of dark venous blood and flushed easily with saline. The central line was secured with 2.0 silk. A sterile dressing with antibiotic disc was applied. ESTIMATED BLOOD LOSS: Minimal COMPLICATIONS: No apparent complications. STAT chest x-ray pending at time of dictation
[2018-06-02] MEDS ORDERED: Dextrose 5%/NaCl 0.9% Inj 1,000 ML IV.CONT SCH (23:15)
[2018-06-02] MEDS ORDERED: fentaNYL 10 mcg/mL Premix Drip 2,500 MCG/250 ML BAG IV.SIG PRN (23:18)
[2018-06-02] MEDS ORDERED: Propofol 1000 mg/100 ml Inj 1,000 MG/100 ML BOTTLE IV.CONT PRN (23:18)
[2018-06-02] MEDS ORDERED: Vancomycin Consult Pharmacy OTHER ONE (23:19)
[2018-06-02] MEDS ORDERED: Potassium Chloride 25 MEQ Effervescent Tablet PO PRN (23:43)
[2018-06-02] MEDS ORDERED: Potassium Phosphate 500 MG Soluble Tablet PO PRN ×2 (23:43)
[2018-06-02] MEDS ORDERED: Magnesium Oxide 400 MG Tablet PO PRN (23:43)
[2018-06-02] MEDS ORDERED: Potassium Chlor 40 mEq Premix 40 MEQ/100 ML PIGGYBACK IV.SIG PRN ×2 (23:43)
[2018-06-02] MEDS ORDERED: Potassium Phosphate Inj 30 MMOL in Sodium Chlor 0.9% Inj 250 ML IV.SIG PRN (23:43)
[2018-06-02] MEDS ORDERED: Magnesium Sulfate Inj 2 GM in Sodium Chlor 0.9% Inj 96 ML IV.SIG PRN (23:43)
[2018-06-02] MEDS ORDERED: Sodium Phosphate Inj 30 MMOL in Sodium Chlor 0.9% Inj 250 ML IV.SIG PRN (23:43)
[2018-06-02] MEDS ORDERED: Potassium Chlor 20 mEq Premix 20 MEQ/100 ML PIGGYBACK IV.SIG PRN ×2 (23:43)
[2018-06-02] MEDS ORDERED: Magnesium Sulfate Inj 4 GM in Sodium Chlor 0.9% Inj 92 ML IV.SIG PRN (23:43)
[2018-06-02] MEDS ORDERED: Dextrose 50% in Water 50 ML Vial IV.PUSH PRN (23:45)
[2018-06-03] MEDS ORDERED: Oral Hygiene Kit OROPHARYNG SCH
[2018-06-03 00:16] LABS: ABG Base Excess -13.1 mmol/L (-2-2); ABG PCO2 33 mmHg (38-42); ABG PO2 321 mmHG (61-120)
[2018-06-03] MEDS: Vasopressin Inj 40 UNIT in Sodium Chlor 0.9% Inj 98 ML IV.CONT SCH ×2 (00:18→18:42)
[2018-06-03] MEDS: Artificial Tears Opth Drops 15 ML Bottle EACH EYE SCH ×3 (00:19→15:46)
--- NOTE | 2018-06-03 00:23 | XR ---
EXAM DATE: 06/03/2018 12:19 AM EDT AGE/SEX: 89 years / Female INDICATIONS: Post intubation, central line placement. CLINICAL DATA: This is the patient's subsequent encounter. Patient reports that signs and symptoms h ave been present for 1 day and indicates a pain score of Nonresponsive. MEDICAL/SURGICAL HISTORY: Non-responsive. Non-responsive. COMPARISON: C, CHEST 1V SINGLE AP, 06/02/2018. . FINDINGS: ETT approximately 4 cm above the shima. NGT just beyond the GE junction. Left IJ central line with t ip near the atrial caval junction. Redemonstration of small right pleural effusion and associated rig ht lower lobe airspace disease. Cardiomediastinal contours are within normal limits. Remainder of exa m is unchanged. CONCLUSION: 1. ETT and NGT in good position. 2. Left IJ central line in good position without pneumothorax. 3. Redemonstration of small right pleural effusion and associated right lower lobe airspace disease. Electronically signed by: Easton Mark MD 06/03/2018 12:21 AM EDT
[2018-06-03] MEDS ORDERED: Sodium Bicarbonate 8.4% Inj 50 MEQ in Sodium Chloride 0.45 % Inj 950 ML IV.CONT SCH (02:00)
[2018-06-03] MEDS ORDERED: Piperacil/Tazo 4.5 GM Premix 4.5 GM/100 ML BAG IV.SIG SCH (03:00)
[2018-06-03] MEDS: Dextrose 5%/NaCl 0.45% Inj 1,000 ML IV.CONT SCH ×3 (03:11→21:01)
[2018-06-03] MEDS: Insulin NovoLOG Aspart Correctional Sugar Inj SQ SCH ×5 (04:00→20:00)
[2018-06-03] MEDS: Oral Hygiene Kit OROPHARYNG SCH ×4 (04:00→18:44)
[2018-06-03 04:22] LABS: Hematocrit 30.4 % (35.0-46.0); Hemoglobin 9.5 gm/dL (11.6-15.3); Mean Corpuscular HGB Conc 31.3 % (32.0-36.0); Mean Corpuscular Hemoglobin 26.9 pg (27.0-34.0); Mean Platelet Volume 8.9 fL (7.0-11.0); Platelet Count 61 th/mm3 (150-450); Red Blood Count 3.53 mil/mm3 (4.00-5.30); Red Cell Distribution Width 17.5 % (11.6-17.2); White Blood Count 30.9 th/mm3 (4.0-11.0)
[2018-06-03 04:43] LABS: Alpha Fetoprotein Tumor Marker 8.8 ng/mL (0.5-8.0); Carcinoembryonic Antigen 1.7 ng/mL (0.2-5.0); Lactate Dehydrogenase 2396 U/L (84-246)
[2018-06-03 04:57] LABS: Albumin 1.8 g/dL (3.4-5.0); Calcium 7.3 mg/dL (8.5-10.1); Carbon Dioxide 18.4 meq/L (21.0-32.0); Free T4 (Free Thyroxine) 1.25 ng/dL (0.76-1.46); Magnesium 1.4 mg/dL (1.5-2.5); Phosphorus 2.8 mg/dL (2.5-4.9); Potassium 3.5 meq/L (3.5-5.1); Thyroid Stimulating Hormone 5.64 uIU/mL (0.358-3.740); Total Protein 4.6 g/dL (6.4-8.2); Triiodothyronine (T3) Free 1.32 pg/mL (2.18-3.98); Troponin I 0.26 ng/mL (0.02-0.05)
[2018-06-03 05:15] LABS: Creatine Kinase MB 14.7 ng/mL (0.5-3.6)
[2018-06-03 05:37] LABS: Hepatitis A IgM Antibody Nonreactive (Nonreactive)
[2018-06-03 05:38] LABS: Hepatitits B Surface Antigen Nonreactive (Nonreactive); Lymphocytes 4 % (9-44); Monocytes 2 % (0-8)
[2018-06-03 05:39] LABS: Ovalocytes 2+; Platelet Morphology Normal (Normal)
[2018-06-03 06:03] LABS: ABG Base Excess -9.8 mmol/L (-2-2); ABG PCO2 26 mmHg (38-42); ABG PO2 197 mmHG (61-120)
[2018-06-03] MEDS ORDERED: Magnesium Oxide 400 MG Tablet PO SCH (06:15)
[2018-06-03] MEDS: Heparin - SQ 10,000 UNITS/ML Vial SQ SCH ×2 (08:58→20:56)
[2018-06-03] MEDS ORDERED: Escitalopram 10 MG Tablet PO SCH (09:00)
[2018-06-03] MEDS: Aspirin 300 MG Supp RECTAL SCH ×2 (09:00→18:43)
[2018-06-03] MEDS ORDERED: Pantoprazole Sodium 20 MG DR Tablet PO SCH (09:00)
[2018-06-03] MEDS ORDERED: amLODIPine 5 MG Tablet PO SCH (09:00)
[2018-06-03] MEDS ORDERED: Magnesium Oxide 400 MG Tablet PO ONE (09:15)
[2018-06-03] MEDS: Chlorhexidine 0.12% Oral Kit 15 ML UDC OROPHARYNG SCH ×4 (09:37→20:00)
[2018-06-03] MEDS: Senna/Docusate Sodium 8.6/50 MG Tablet PO SCH ×2 (10:20→20:57)
--- NOTE | 2018-06-03 10:29 | P.CONID ---
History of Present Illness Service: Infectious disease Consult date: 06/03/18 Requesting Physician: Mehdi Giron Primary Care Provider: Sergio Tinsley Chief Complaint: AMS brought in by family History of Present Illness: Patient seen and examined. Records reviewed. Patient is an 82-year-old female, brought into the hospital for further evaluation of decreased level of consciousness. She apparently had some fevers and some confusion the day prior to admission. Later on she was noted to be a little bit short of breath and and was more confused, and then later on was noted to be lethargic. On the day of admission her lethargy seemed to be worse , so she was brought into the hospital for further evaluation and treatment. There is some mention that she had some exposure to some family members who were sick. There was no mention of any cough or any chest congestion. No nausea or vomiting, diarrhea or any complaints regarding urination. Since admission highest temperature has been around 100. Her white count was initially 7.4 and it went up to 30.9, with significant bandemia. Her lactic acid was very elevated. Her creatinine was initially 0.95, and it went up to 2.26. Her AST and ALT are also increasing. Urinalysis showed [address] of the head did not show any acute abnormality. Chest x-ray showed right infiltrate, and CT of the chest showed a right subpleural disease. 2 blood cultures done on admission are now reported as growing gram-negative mihaela. Patient is hypotensive, and currently receiving 2 pressors. Infectious disease consultation has been requested to evaluate the patient with severe sepsis and shock. 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 - Medical History Medical History: Medical History (Last Reviewed 06/03/18 @ 10:22 by Edna Holcomb MD) COPD (chronic obstructive pulmonary disease) GERD (gastroesophageal reflux disease) Hiatal hernia Hyperlipidemia Hypertension Parkinsons Sleep apnea TIA (transient ischemic attack) - Surgical History Surgical History: Surgical History (Last Reviewed 06/03/18 @ 10:22 by Edna Holcomb MD) History of cholecystectomy - Tobacco History Second Hand Smoke Exposure: No Smoking Status: Unknown if ever smoked - Alcohol History How Often Do You Have a Drink Containing Alcohol: Unable to Obtain - Substance Use History Substance History: Unable to Obtain - Travel History Recent Travel in the [place] Within the Last 8 Weeks: No Recent Travel Out of the Country Within the Last 8 Weeks: No - Immunization History Tetanus Immunization: Unable to Assess Hx Influenza Vaccine This Season: Unable to Assess Medications and Allergies Active Medications: Active Medications Acetaminophen (Tylenol Liq) 650 mg PO Q6H PRN PRN Reason: FEVER Last Admin: 06/03/18 09:34 Dose: 650 mg Albuterol (Albuterol Neb (Prn)) 2.5 mg NEB Q2HR NEB PRN PRN Reason: DYSPNEA Artificial Tears (Tears Naturale Opth Drops) 1 drop EACH EYE Q8H [facility] Last Admin: 06/03/18 08:59 Dose: 1 drop Aspirin (Aspirin Supp) 300 mg RECTAL DAILY [facility] Last Admin: 06/03/18 09:00 Dose: 300 mg Chlorhexidine Gluconate (Peridex 0.12% Oral Kit) 15 ml OROPHARYNG BID@0800, 2000 [facility] Chlorhexidine Gluconate (Peridex 0.12% Oral Kit) 15 ml OROPHARYNG BID@0800, 2000 [facility] Last Admin: 06/03/18 09:37 Dose: 15 ml Dextrose (D50w Vial) 50 ml IV.PUSH UNSCH PRN PRN Reason: PER HYPOGLYCEMIA PROTOCOL Glucagon (Glucagon Inj) 1 mg OTHER PRN PRN PRN Reason: for Hypoglycemia Protocol Heparin Sodium (Porcine) (Heparin Inj) 5,000 units SQ Q12HR [facility] Last Admin: 06/03/18 08:58 Dose: 5,000 units Norepinephrine Bitartrate 16 (mg/ Sodium Chloride) 250 mls @ 1.87 mls/hr IV.CONT TITRATE PRN; Protocol PRN Reason: See Protocol Last Titration: 06/03/18 04:30 Dose: 12 mcg/min, 11.25 mls/hr Propofol (Diprivan 1000 Mg/100 Ml Inj) 1,000 mg in 100 mls @ 2.041 mls/hr IV.CONT TITRATE PRN; Protocol PRN Reason: Per Protocol Fentanyl (Fentanyl 10 Mcg/Ml Premix Drip) 2,500 mcg in 250 mls @ 5 mls/hr IV.SIG TITRATE PRN; Protocol PRN Reason: Per Protocol Vasopressin 40 unit/ Sodium (Chloride) 100 mls @ 6 mls/hr IV.CONT CONT [facility]; Protocol Last Admin: 06/03/18 00:18 Dose: 0.04 units/min, 6 mls/hr Magnesium Sulfate Inj 4 gm/ (Sodium Chloride) 100 mls @ 50 mls/hr IV.SIG UNSCH PRN PRN Reason: For Magnesium 0.9 - 1.1 mg/dL Magnesium Sulfate Inj 2 gm/ (Sodium Chloride) 100 mls @ 50 mls/hr IV.SIG UNSCH PRN PRN Reason: For Magnesium 1.2 - 1.6 mg/dL Potassium Chloride (Kcl 40 Meq Premix Inj) 40 meq in 100 mls @ 25 mls/hr IV.SIG Q2H PRN PRN Reason: For Potassium 2.8 - 3.2 mEq/L Potassium Chloride (Kcl 20 Meq Premix Inj) 20 meq in 100 mls @ 50 mls/hr IV.SIG Q2H PRN PRN Reason: For Potassium 3.3 - 3.5 mEq/L Potassium Chloride (Kcl 40 Meq Premix Inj) 40 meq in 100 mls @ 25 mls/hr IV.SIG UNSCH PRN PRN Reason: For Potassium 3.3 - 3.5 mEq/L Potassium Chloride (Kcl 20 Meq Premix Inj) 20 meq in 100 mls @ 50 mls/hr IV.SIG Q2H PRN PRN Reason: For Potassium 2.8 - 3.2 mEq/L Potassium Phosphate 30 mmol/ (Sodium Chloride) 260 mls @ 42 mls/hr IV.SIG UNSCH PRN PRN Reason: SEE LABEL COMMENTS Sodium Phosphate 30 mmol/ (Sodium Chloride) 260 mls @ 42 mls/hr IV.SIG UNSCH PRN PRN Reason: For Phosphorus < 2.5 mg/dL Dextrose/Sodium Chloride (D5w/1/2 Ns Inj) 1,000 mls @ 125 mls/hr IV.CONT .Q8H [facility] Last Admin: 06/03/18 03:11 Dose: 125 mls/hr Meropenem 500 mg/ Sodium (Chloride) 100 mls @ 200 mls/hr IV.SIG Q8H [facility] Insulin Aspart (Novolog Insulin Suppl Scale Inj) 0 unit SQ Q4HR [facility]; Protocol Last Admin: 06/03/18 04:00 Dose: Not Given Lactulose (Lactulose Liq) 30 ml PO DAILY [facility] Last Admin: 06/03/18 08:58 Dose: 30 ml Lansoprazole (Prevacid Solutab) 30 mg NG/OG DAILY [facility] Last Admin: 06/03/18 08:58 Dose: 30 mg Magnesium Oxide (Mag-Ox) 800 mg PO UNSCH PRN PRN Reason: For Magnesium 1.2 - 1.6 mg/dL Potassium Bicarb/Potassium Chloride (K-Lyte Cl Eff) 50 meq PO UNSCH PRN PRN Reason: For Potassium 3.3 - 3.5 mEq/L Potassium Phosphate (K-Phos Original) 2,000 mg PO Q4H PRN PRN Reason: Phosphorus Less Than 2.5 mg/dL Potassium Phosphate (K-Phos Original) 2,000 mg PO UNSCH PRN PRN Reason: SEE LABEL COMMENTS Senna/Docusate Sodium (Akiko-Colace) 1 tab PO BID [facility] Last Admin: 06/02/18 20:58 Dose: Not Given Sodium Chloride (Ns Flush) 2 ml IV.FLUSH PRN PRN PRN Reason: FLUSH AFTER USING IV ACCESS Last Admin: 06/03/18 09:00 Dose: 2 ml Terbutaline Sulfate (Brethine Inj) 1 mg SQ UNSCH PRN PRN Reason: For Extravasation Allergies Allergy/AdvReac Type Severity Reaction Status Date / Time carbidopa Allergy Lethargy Verified 06/02/18 08:57 duloxetine [From Cymbalta] Allergy Nausea Verified 06/02/18 08:57 levodopa [From Sinemet] AdvReac Lethargy Verified 06/02/18 08:57 Home Medications Medication Instructions Recorded Confirmed Type albuterol sulfate 2.5 mg INHALATION Q4H PRN 06/02/18 06/02/18 History amlodipine 5 mg PO DAILY 06/02/18 06/02/18 History calcium carbonate-vitamin D3 1 tab PO DAILY 06/02/18 06/02/18 History [Calcium 600 + D(3)] docusate sodium [Colace] 100 mg PO BID 06/02/18 06/02/18 History escitalopram oxalate 10 mg PO DAILY 06/02/18 06/02/18 History gabapentin 600 mg PO QID 06/02/18 06/02/18 History hyoscyamine sulfate [Levsin] 0.25 mg PO QID PRN 06/02/18 06/02/18 History ipratropium-albuterol 3 ml INHALATION QID PRN 06/02/18 06/02/18 History megestrol 40 mg PO BID PRN 06/02/18 06/02/18 History omeprazole 20 mg PO DAILY 06/02/18 06/02/18 History Exam Vital signs: Vital Signs 06/02/18 11:00 06/02/18 14:14 06/02/18 15:28 Temperature Pulse Rate 110 H 108 H Respiratory Rate 17 18 20 Blood Pressure 155/73 H 117/56 L 110/55 L Pulse Oximetry 98 96 06/02/18 18:25 06/02/18 19:00 06/02/18 19:30 Temperature 97.6 F Pulse Rate 110 H 109 H Respiratory Rate 18 20 Blood Pressure 97/57 L 92/54 L Pulse Oximetry 96 96 98 06/02/18 20:00 06/02/18 21:00 06/02/18 22:00 Temperature 98.2 F Pulse Rate 110 H 114 H 104 H Respiratory Rate 16 16 12 Blood Pressure 82/50 L 109/57 L 87/43 L Pulse Oximetry 97 100 100 06/02/18 23:00 06/02/18 23:39 06/03/18 00:00 Temperature 97.8 F Pulse Rate 114 H 107 H Respiratory Rate 25 H 27 H 28 H Blood Pressure 119/57 L 116/55 L Pulse Oximetry 100 100 98 06/03/18 01:00 06/03/18 02:00 06/03/18 03:00 Temperature Pulse Rate 114 H 114 H 113 H Respiratory Rate 22 29 H 27 H Blood Pressure 146/67 H 126/57 L 114/58 L Pulse Oximetry 100 100 99 06/03/18 04:00 06/03/18 04:10 06/03/18 05:00 Temperature 97.6 F Pulse Rate 113 H 112 H Respiratory Rate 29 H 25 H 25 H Blood Pressure 126/55 L 108/51 L Pulse Oximetry 100 100 100 06/03/18 06:00 06/03/18 08:00 Temperature Pulse Rate 111 H Respiratory Rate 25 H 25 H Blood Pressure 111/70 Pulse Oximetry 100 98 Intake & Output 06/02/18 06/03/18 06/03/18 18:59 06:59 18:59 Intake Total 0 / 0 696 / 696 Output Total 75 / 75 Balance 0 / 0 621 / 621 Weight 68.039 kg 68.039 kg Intake: IV 0 / 0 696 / 696 D5W/Normal Saline Inj 1,000 ML 362 / 362 @ 100 mls/hr IV.CONT .Q10H [facility] Rx#:[id number] Levophed Inj 16 MG In NS Inj 234 / 234 234 ML @ 2 MCG/MIN 1.87 mls/hr IV.CONT TITRATE PRN Rx#: [id number] Zosyn 4.5 GM Premix 4.5 gm In 100 / 100 100 ml @ 200 mls/hr IV.SIG Q6H [facility] Rx#:[id number] NS Inj 1,000 ML @ Wide Open IV. 0 / 0 SIG BOLUS ONE Rx#:[id number] Oral 0 / 0 Output: Gastric Drainage 75 / 75 Orogastric Tube 75 / 75 Other: # Voids 1 Date of Last Bowel Movement 06/03/18 # Incontinent Bowel Movements 4 Narrative: Physical Examination GENERAL: Patient is a well-nourished, well-developed female, sedated on the vent, not in distress. SKIN: Cool and dry. Has significant mottling of her skin BLE, cool feet. No embolic lesions. HEAD: Atraumatic. Normocephalic. No temporal wasting, or tenderness. EYES: [place] conjunctiva. No petechia or hemorrhage. Pupils equal, round and reactive to light. Extraocular movements full and intact. No scleral icterus. No injection or drainage. EARS, NOSE AND THROAT: Nose without bleeding or purulent nasal discharge. Mucous membranes pink and moist. Orally intubated. NECK: Trachea midline. Supple and not tender, no meningeal signs CARDIOVASCULAR: Regular rate and rhythm. No murmurs, rubs or gallops heard RESPIRATORY: Coarse breath sounds bilaterally. No rales, wheezing or rhonchi ABDOMEN: Soft, nondistended, started grimacing during abdominal palpation, no guarding however. Bowel sounds present and normoactive. No organomegaly. EXTREMITIES: No clubbing, cyanosis, or edema. Cool feet, significant mottling of both lower extremity. NEUROLOGICAL: Sedated on the vent. PSYCHIATRIC: Unable to assess LINE: No evidence of infection : English in place, urine looks clear Results - Labs CBC & Chem 7: 06/03/18 03:30 06/03/18 03:30 Labs: Laboratory Results - last 24 hr 06/02/18 06/02/18 06/02/18 08:20 12:52 16:00 WBC RBC Hgb Hct MCV MCH MCHC RDW Plt Count MPV Prelim Diff (Auto) WBC Differential . Diff Scan Auto diff confirmed Seg Neuts % (Manual) Band Neuts % (Manual) Lymphocytes % (Manual) Monocytes % (Manual) Basophils % (Manual) Abs Neuts (Manual) Differential Comment Toxic Vacuolation Present H Platelet Estimate Low L Platelet Morphology Normal Ovalocytes 1+ H Acanthocytes (Spur) 2+ H Puncture Site Patient Temperature O2 Saturation ABG pH ABG pCO2 ABG pO2 ABG HCO3 ABG O2 Content ABG Base Excess ABG Methemoglobin Marvin Test Hemoglobin Carboxyhemoglobin O2 Delivery Device Vent Setting Inspired O2 Critical Value Sodium Potassium Chloride Carbon Dioxide Anion Gap BUN Creatinine Estimated GFR POC Glucose Random Glucose Lactic Acid 5.8 H* Uric Acid Calcium Prot Corrected Calcium Phosphorus Magnesium Total Bilirubin AST ALT Alkaline Phosphatase Ammonia Lactate Dehydrogenase Total Creatine Kinase CK-MB (CK-2) CK-MB (CK-2) % Troponin I Total Protein Albumin Tumor Marker AFP Carcinoembryonic Ag CA 19-9 Antigen Tumor Marker HCG TSH Free T4 Free T3 Cortisol Nasal Screen MRSA (PCR) Not detected Hepatitis A IgM Ab Hep Bs Antigen Hep B Core IgM Ab Hep C IgG Ab 06/02/18 06/02/18 06/02/18 21:06 21:32 22:16 WBC RBC Hgb Hct MCV MCH MCHC RDW Plt Count MPV Prelim Diff (Auto) WBC Differential Diff Scan Seg Neuts % (Manual) Band Neuts % (Manual) Lymphocytes % (Manual) Monocytes % (Manual) Basophils % (Manual) Abs Neuts (Manual) Differential Comment Toxic Vacuolation Platelet Estimate Platelet Morphology Ovalocytes Acanthocytes (Spur) Puncture Site Patient Temperature O2 Saturation ABG pH ABG pCO2 ABG pO2 ABG HCO3 ABG O2 Content ABG Base Excess ABG Methemoglobin Marvin Test Hemoglobin Carboxyhemoglobin O2 Delivery Device Vent Setting Inspired O2 Critical Value Sodium 149 H Potassium 3.8 Chloride 116 H Carbon Dioxide 17.8 L Anion Gap 15 BUN 27 H Creatinine 2.26 H Estimated GFR 23 L POC Glucose 33 L* 147 H Random Glucose 93 Lactic Acid Uric Acid Calcium 7.8 L D Prot Corrected Calcium Phosphorus Magnesium Total Bilirubin 0.8 AST 331 H ALT 61 H Alkaline Phosphatase 78 Ammonia Lactate Dehydrogenase Total Creatine Kinase CK-MB (CK-2) CK-MB (CK-2) % Troponin I Total Protein 5.0 L D Albumin 2.0 L Tumor Marker AFP Carcinoembryonic Ag CA 19-9 Antigen Tumor Marker HCG TSH Free T4 Free T3 Cortisol Nasal Screen MRSA (PCR) Hepatitis A IgM Ab Hep Bs Antigen Hep B Core IgM Ab Hep C IgG Ab 06/02/18 06/02/18 06/02/18 22:16 22:16 22:32 WBC RBC Hgb Hct MCV MCH MCHC RDW Plt Count MPV Prelim Diff (Auto) WBC Differential Diff Scan Seg Neuts % (Manual) Band Neuts % (Manual) Lymphocytes % (Manual) Monocytes % (Manual) Basophils % (Manual) Abs Neuts (Manual) Differential Comment Toxic Vacuolation Platelet Estimate Platelet Morphology Ovalocytes Acanthocytes (Spur) Puncture Site Patient Temperature O2 Saturation ABG pH ABG pCO2 ABG pO2 ABG HCO3 ABG O2 Content ABG Base Excess ABG Methemoglobin Marvin Test Hemoglobin Carboxyhemoglobin O2 Delivery Device Vent Setting Inspired O2 Critical Value Sodium Potassium Chloride Carbon Dioxide Anion Gap BUN Creatinine Estimated GFR POC Glucose 91 Random Glucose Lactic Acid 8.5 H* Uric Acid Calcium Prot Corrected Calcium Phosphorus Magnesium Total Bilirubin AST ALT Alkaline Phosphatase Ammonia 12 Lactate Dehydrogenase Total Creatine Kinase CK-MB (CK-2) CK-MB (CK-2) % Troponin I Total Protein Albumin Tumor Marker AFP Carcinoembryonic Ag CA 19-9 Antigen Tumor Marker HCG TSH Free T4 Free T3 Cortisol Nasal Screen MRSA (PCR) Hepatitis A IgM Ab Hep Bs Antigen Hep B Core IgM Ab Hep C IgG Ab 06/02/18 06/02/18 06/03/18 23:41 23:47 01:45 WBC RBC Hgb Hct MCV MCH MCHC RDW Plt Count MPV Prelim Diff (Auto) WBC Differential Diff Scan Seg Neuts % (Manual) Band Neuts % (Manual) Lymphocytes % (Manual) Monocytes % (Manual) Basophils % (Manual) Abs Neuts (Manual) Differential Comment Toxic Vacuolation Platelet Estimate Platelet Morphology Ovalocytes Acanthocytes (Spur) Puncture Site Left radial Patient Temperature 98.6 O2 Saturation 97 ABG pH 7.22 L* ABG pCO2 33 L ABG pO2 321 H ABG HCO3 13 L* ABG O2 Content 14.5 ABG Base Excess -13.1 L ABG Methemoglobin 1.5 Marvin Test Present Hemoglobin 10.0 L Carboxyhemoglobin 0.4 O2 Delivery Device Vent Vent Setting Prvc/ac Inspired O2 100 Critical Value Yes Sodium Potassium Chloride Carbon Dioxide Anion Gap BUN Creatinine Estimated GFR POC Glucose 137 H 85 Random Glucose Lactic Acid Uric Acid Calcium Prot Corrected Calcium Phosphorus Magnesium Total Bilirubin AST ALT Alkaline Phosphatase Ammonia Lactate Dehydrogenase Total Creatine Kinase CK-MB (CK-2) CK-MB (CK-2) % Troponin I Total Protein Albumin Tumor Marker AFP Carcinoembryonic Ag CA 19-9 Antigen Tumor Marker HCG TSH Free T4 Free T3 Cortisol Nasal Screen MRSA (PCR) Hepatitis A IgM Ab Hep Bs Antigen Hep B Core IgM Ab Hep C IgG Ab 06/03/18 06/03/18 06/03/18 03:30 03:30 03:30 WBC 30.9 H D RBC 3.53 L Hgb 9.5 L D Hct 30.4 L MCV 86.0 MCH 26.9 L MCHC 31.3 L RDW 17.5 H Plt Count 61 L D MPV 8.9 Prelim Diff (Auto) Slide review pending WBC Differential Manual diff final Diff Scan Seg Neuts % (Manual) 59 Band Neuts % (Manual) 34 H Lymphocytes % (Manual) 4 L Monocytes % (Manual) 2 Basophils % (Manual) 1 Abs Neuts (Manual) 28.7 H Differential Comment . Toxic Vacuolation Platelet Estimate Low L Platelet Morphology Normal Ovalocytes 2+ H Acanthocytes (Spur) Puncture Site Patient Temperature O2 Saturation ABG pH ABG pCO2 ABG pO2 ABG HCO3 ABG O2 Content ABG Base Excess ABG Methemoglobin Marvin Test Hemoglobin Carboxyhemoglobin O2 Delivery Device Vent Setting Inspired O2 Critical Value Sodium 146 H Potassium 3.5 Chloride 114 H Carbon Dioxide 18.4 L Anion Gap 14 BUN 27 H Creatinine 2.12 H Estimated GFR 24 L POC Glucose Random Glucose 78 Lactic Acid Uric Acid Calcium 7.3 L* Prot Corrected Calcium 8.7 Phosphorus 2.8 Magnesium 1.4 L Total Bilirubin 1.0 AST 515 H ALT 99 H Alkaline Phosphatase 68 Ammonia 20 Lactate Dehydrogenase Total Creatine Kinase 730 H CK-MB (CK-2) 14.7 H CK-MB (CK-2) % 2.0 Troponin I 0.26 H D Total Protein 4.6 L Albumin 1.8 L Tumor Marker AFP Carcinoembryonic Ag CA 19-9 Antigen Tumor Marker HCG TSH 5.640 H Free T4 1.25 Free T3 1.32 L Cortisol Nasal Screen MRSA (PCR) Hepatitis A IgM Ab Hep Bs Antigen Hep B Core IgM Ab Hep C IgG Ab 06/03/18 06/03/18 06/03/18 03:30 03:30 03:30 WBC RBC Hgb Hct MCV MCH MCHC RDW Plt Count MPV Prelim Diff (Auto) WBC Differential Diff Scan Seg Neuts % (Manual) Band Neuts % (Manual) Lymphocytes % (Manual) Monocytes % (Manual) Basophils % (Manual) Abs Neuts (Manual) Differential Comment Toxic Vacuolation Platelet Estimate Platelet Morphology Ovalocytes Acanthocytes (Spur) Puncture Site Patient Temperature O2 Saturation ABG pH ABG pCO2 ABG pO2 ABG HCO3 ABG O2 Content ABG Base Excess ABG Methemoglobin Marvin Test Hemoglobin Carboxyhemoglobin O2 Delivery Device Vent Setting Inspired O2 Critical Value Sodium Potassium Chloride Carbon Dioxide Anion Gap BUN Creatinine Estimated GFR POC Glucose Random Glucose Lactic Acid 6.1 H* Uric Acid Calcium Prot Corrected Calcium Phosphorus Magnesium Total Bilirubin AST ALT Alkaline Phosphatase Ammonia Lactate Dehydrogenase 2396 H Total Creatine Kinase CK-MB (CK-2) CK-MB (CK-2) % Troponin I Total Protein Albumin Tumor Marker AFP 8.8 H Carcinoembryonic Ag 1.7 CA 19-9 Antigen Tumor Marker HCG Less than 1 TSH Free T4 Free T3 Cortisol 12.8 Nasal Screen MRSA (PCR) Hepatitis A IgM Ab Hep Bs Antigen Hep B Core IgM Ab Hep C IgG Ab 06/03/18 06/03/18 06/03/18 03:30 03:30 03:30 WBC RBC Hgb Hct MCV MCH MCHC RDW Plt Count MPV Prelim Diff (Auto) WBC Differential Diff Scan Seg Neuts % (Manual) Band Neuts % (Manual) Lymphocytes % (Manual) Monocytes % (Manual) Basophils % (Manual) Abs Neuts (Manual) Differential Comment Toxic Vacuolation Platelet Estimate Platelet Morphology Ovalocytes Acanthocytes (Spur) Puncture Site Patient Temperature O2 Saturation ABG pH ABG pCO2 ABG pO2 ABG HCO3 ABG O2 Content ABG Base Excess ABG Methemoglobin Marvin Test Hemoglobin Carboxyhemoglobin O2 Delivery Device Vent Setting Inspired O2 Critical Value Sodium Potassium Chloride Carbon Dioxide Anion Gap BUN Creatinine Estimated GFR POC Glucose Random Glucose Lactic Acid Uric Acid 3.6 Calcium Prot Corrected Calcium Phosphorus Magnesium Total Bilirubin AST ALT Alkaline Phosphatase Ammonia Lactate Dehydrogenase Total Creatine Kinase CK-MB (CK-2) CK-MB (CK-2) % Troponin I Total Protein Albumin Tumor Marker AFP Carcinoembryonic Ag CA 19-9 Antigen 3.7 Tumor Marker HCG TSH Free T4 Free T3 Cortisol Nasal Screen MRSA (PCR) Hepatitis A IgM Ab Nonreactive Hep Bs Antigen Nonreactive Hep B Core IgM Ab Nonreactive Hep C IgG Ab Nonreactive 06/03/18 06/03/18 06/03/18 04:03 05:26 09:20 WBC RBC Hgb Hct MCV MCH MCHC RDW Plt Count MPV Prelim Diff (Auto) WBC Differential Diff Scan Seg Neuts % (Manual) Band Neuts % (Manual) Lymphocytes % (Manual) Monocytes % (Manual) Basophils % (Manual) Abs Neuts (Manual) Differential Comment Toxic Vacuolation Platelet Estimate Platelet Morphology Ovalocytes Acanthocytes (Spur) Puncture Site Right brachial Patient Temperature 98.6 O2 Saturation 97 ABG pH 7.37 L ABG pCO2 26 L ABG pO2 197 H ABG HCO3 15 L* ABG O2 Content 13.7 ABG Base Excess -9.8 L ABG Methemoglobin 1.5 Marvin Test Hemoglobin 9.7 L Carboxyhemoglobin 0.6 O2 Delivery Device Vent Vent Setting Prvc/ac Inspired O2 60 Critical Value Yes Sodium Potassium Chloride Carbon Dioxide Anion Gap BUN Creatinine Estimated GFR POC Glucose 94 108 Random Glucose Lactic Acid Uric Acid Calcium Prot Corrected Calcium Phosphorus Magnesium Total Bilirubin AST ALT Alkaline Phosphatase Ammonia Lactate Dehydrogenase Total Creatine Kinase CK-MB (CK-2) CK-MB (CK-2) % Troponin I Total Protein Albumin Tumor Marker AFP Carcinoembryonic Ag CA 19-9 Antigen Tumor Marker HCG TSH Free T4 Free T3 Cortisol Nasal Screen MRSA (PCR) Hepatitis A IgM Ab Hep Bs Antigen Hep B Core IgM Ab Hep C IgG Ab - Imaging Impressions Abdomen X-Ray 06/02/18 00:00 CONCLUSION: 1. Stool in the rectal vault. Air distention of the gastric lumen. Otherwise, nonobstructive bowel gas pattern with a velocity of air throughout the abdomen. 2. Spinal stimulator tip in the mid dorsal spine. Chest CT 06/02/18 00:00 CONCLUSION: 1. Right basilar subpleural airspace disease and small effusion. 2. No suspicious pulmonary masses. 3. Distended fluid-filled fluid-filled esophagus 4. Status post right mastectomy. 5. Dorsal column stimulator. Chest X-Ray 06/02/18 00:00 CONCLUSION: 1. ETT and NGT in good position. 2. Left IJ central line in good position without pneumothorax. 3. Redemonstration of small right pleural effusion and associated right lower lobe airspace disease. Head CT 06/02/18 20:37 CONCLUSION: 1. Limited study without evidence of an acute intracranial abnormality. 2. Chronic white matter changes are again noted. Assessment and Plan - Plan Impression GNR sepsis with shock, source GI or - UA with mild pyuria - LFTs elevated UTI Renal failure, due to sepsis and shock Elevated LFT, ?biliary source of sepsis Respiratory failure Acidosis due to sepsis Recommendation Repeat 2 blood cultures Abdominal ultrasound to look at biliary tree and kidneys Agree with CT of the abdomen and pelvis Change Zosyn to meropenem Also on Vanco, and will continue for now Follow cultures Monitor progress I will follow along with you Thank you for this consultation I will be off June 04- Other ID MD covering in my absence
[2018-06-03] MEDS: Norepinephrine Inj 16 MG in Sodium Chlor 0.9% Inj 234 ML IV.CONT PRN (10:37)
[2018-06-03] MEDS: Aspirin 325 MG Tablet PO SCH ×2 (12:41→20:56)
--- NOTE | 2018-06-03 13:38 | ECHRPT ---
Indication: SOB CONCLUSIONS The left ventricular systolic function is normal with an estimated ejection fraction in the range of 60-65%. Normal left ventricular size. Wall thickness is normal. No definite regional wall motion abnormalit ies are present. Trileaflet aortic valve. No aortic valve stenosis or regurgitation. Trivial aortic leaflet scleros is. There is trace tricuspid valve regurgitation. BP: / HR: Rhythm: Sinus MEASUREMENTS (Male / Female) Normal Values Technical Quality:Good 2D ECHO LVOT Diameter 1.9 cm LV Ejection Fraction MOD 4C 63.0 % LV Ejection Fraction 4C AL 64.1 % M-MODE Aortic Root Diameter MM 2.7 cm LA Systolic Diameter MM 3.8 cm LA Ao Ratio MM 1.4 AV Cusp Separation MM 1.3 cm DOPPLER AV Peak Velocity 164.0 cm/s AV Peak Gradient 10.8 mmHg LVOT Peak Velocity 96.7 cm/s LVOT Peak Gradient 3.7 mmHg AV Area Cont Eq pk 1.7 cm MV Area PHT 3.7 cm Mitral E Point Velocity 62.2 cm/s Mitral A Point Velocity 98.7 cm/s Mitral E to A Ratio 0.6 LV E' Lateral Velocity 5.4 cm/s Mitral E to LV E' Lateral Ratio 11.6 LV E' Septal Velocity 3.1 cm/s Mitral E to LV E' Septal Ratio 19.9 TR Peak Velocity 191.0 cm/s TR Peak Gradient 14.6 mmHg Right Atrial Pressure 10.0 mmHg Pulmonary Artery Systolic Pressu 24.6 mmHg Right Ventricular Systolic Press 24.6 mmHg PV Peak Velocity 93.7 cm/s PV Peak Gradient 3.5 mmHg FINDINGS LEFT VENTRICLE The left ventricular systolic function is normal with an estimated ejection fraction in the range of 60-65%. Normal left ventricular size. Wall thickness is normal. No definite regional wall motion abnormalit ies are present. RIGHT VENTRICLE Normal right ventricular size and systolic function. LEFT ATRIUM The left atrial size is normal. RIGHT ATRIUM The right atrial size is normal. ATRIAL SEPTUM Normal atrial septal thickness without atrial level shunting by limited color doppler interrogation. AORTA The aortic root and proximal ascending aorta are normal in size on limited imaging. MITRAL VALVE Structurally normal mitral valve. No mitral valve stenosis or regurgitation. AORTIC VALVE Trileaflet aortic valve. No aortic valve stenosis or regurgitation. Trivial aortic leaflet scleros is. TRICUSPID VALVE Structurally normal tricuspid valve. There is trace tricuspid valve regurgitation. PULMONARY VALVE No pulmonary valve regurgitation or stenosis. VESSELS The inferior vena cava is normal in size. PERICARDIUM No pericardial effusion. Alvaro Morris MD (Electronically Signed) Final Date:03 June 2018 13:37
--- NOTE | 2018-06-03 13:48 | CT ---
EXAM DATE: 06/03/2018 1:21 PM EDT AGE/SEX: 82 years / Female INDICATIONS: Sepsis. CLINICAL DATA: This is the patient's initial encounter. Patient reports that signs and symptoms have been present for 1 day and indicates a pain score of Nonresponsive. MEDICAL/SURGICAL HISTORY: Chronic obstructive pulmonary disease. Hypertension. Hiatal hernia. Cholecystectomy. RADIATION DOSE: 9.56 CTDI (mGy) COMPARISON: No prior exams available for comparison. TECHNIQUE: Multiple contiguous axial images were obtained through the abdomen. Images were obtained using multiple row detector helical technique. Using automated exposure control and adjustment of the mA and/or kV according to patient size, radiation dose was kept as low as reasonably achievable to o btain optimal diagnostic quality images. DICOM format image data is available electronically for rev iew and comparison. FINDINGS: Small bilateral pleural effusions are identified. There is subsegmental atelectasis in the both bases . There is hypodensity within the liver compatible with cyst measuring 4 cm in segment 2 The spleen is normal in size and free of focal defects. The gallbladder is absent. The pancreas demonstrates no rmal contour without evidence of mass or ductal dilatation. The adrenal glands are unremarkable. The re are multiple stones in both kidneys without hydronephrosis the largest measuring 2 mm on the left There is a single simple cyst in the left kidney measuring 4 cm Examination of the pelvis demonstrates no evidence of free fluid or pelvic mass. No abnormally enlarg ed inguinal or retroperitoneal lymph nodes are present. A English catheter is present within the bladde r which does not allow for evaluation. CONCLUSION: No evidence of acute abdominal or pelvic process. No masses are identified. There is no evidence of a bscess. Electronically signed by: Ernst Rao MD 06/03/2018 1:47 PM EDT
--- NOTE | 2018-06-03 15:18 | MG ---
cc: Alondra Simpson MD EEG NUMBER: [id number] REFERRING PHYSICIAN: Dr. Justice Morin. ROOM: [facility] INDICATION: Lethargic, no sedation and intubated. Photic only done. Does not follow commands. Noted that the family states he has a hearing implant that is not on at this time. CT limited, without any acute infarct. An 82-year-old patient, change in mental status, trouble breathing, fever. On aspirin, vancomycin, Zosyn and vasopressin. DESCRIPTION OF THE RECORD: There is overall 4-5 Hz background at times, but predominantly more of a 3 Hz slowing. Myogenic artifact notable and described by the technicians performing the study. There is overall moderate slowing throughout this recording. Photic stimulation without any significant driving response. IMPRESSION: Abnormal electroencephalogram due to moderate slowing of the background, may be seen with encephalopathic process of various etiology. Clinical correlation. Alondra Simpson MD DF/ENRIQUETA , 02:57 PM , 03:16 PM
--- NOTE | 2018-06-03 16:52 | P.CONNP ---
<Melinda Mora - Last Filed: 06/03/18 18:44> History of Present Illness Service: Nephrology Consult date: 06/03/18 Requesting Physician: Mehdi Giron Reason for Consult: SCOUT Primary Care Provider: Sergio Tinsley Chief Complaint: AMS brought in by family History of Present Illness: The patient is an 82 yo AA female who was brought to this facility on 06/02/18 by her family for AMS. According to records (as the patient is intubated an unable to provide hx and no family present), she was having some SOB at home that resolved with nebulizer treatments. Also reported fever that resolved with APAP. In ED, was given Vancomycin, Rocephin, and Zosyn. She later became significantly hypoglycemic & hypotensive and was emergently intubated for airway protection. She is currently in ICU on vent support and Levo at 12mc. ID has been consulted for evaluation of severe sepsis. UCx is positive for GNR as well as BCx. Zosyn has been changed to Meropenem. We have been consulted for renal failure and anuria. Admitting SCr of 0.95 with eGFR of 61 that has worsened to 2.12 with eGFR 24 at consult. She has had virtually no UOP in the past 12h. Previous labs reviewed showing a baseline SCr of 0.4-0.5 since 2015. She apparently has been more and more debilitated over the years and is now living with her daughter. Review of Systems unobtainable due to endotracheal tube PMFSH - History History Provided By: Supervisor Respiratory / EMT - Medical History Medical History: Medical History (Last Updated 06/03/18 @ 18:59 by RITIKA Adame) COPD (chronic obstructive pulmonary disease) Dysphagia GERD (gastroesophageal reflux disease) Hearing deficit Hiatal hernia Hyperlipidemia Hypertension Parkinsons S/P ORIF (open reduction internal fixation) fracture Sleep apnea TIA (transient ischemic attack) - Surgical History Surgical History: Surgical History (Last Updated 06/03/18 @ 19:00 by RITIKA Adame) History of cholecystectomy History of cochlear implant History of total abdominal hysterectomy and bilateral salpingo-oophorectomy - Tobacco History Second Hand Smoke Exposure: No Smoking Status: Unknown if ever smoked - Alcohol History How Often Do You Have a Drink Containing Alcohol: Unable to Obtain - Substance Use History Substance History: Unable to Obtain - Travel History Recent Travel in the [facility] Within the Last 8 Weeks: No Recent Travel Out of the Country Within the Last 8 Weeks: No - Immunization History Tetanus Immunization: Unable to Assess Hx Influenza Vaccine This Season: Unable to Assess Medications and Allergies Allergies Allergy/AdvReac Type Severity Reaction Status Date / Time carbidopa Allergy Lethargy Verified 06/02/18 08:57 duloxetine [From Cymbalta] Allergy Nausea Verified 06/02/18 08:57 levodopa [From Sinemet] AdvReac Lethargy Verified 06/02/18 08:57 Home Medications Medication Instructions Recorded Confirmed Type albuterol sulfate 2.5 mg INHALATION Q4H PRN 06/02/18 06/02/18 History amlodipine 5 mg PO DAILY 06/02/18 06/02/18 History calcium carbonate-vitamin D3 1 tab PO DAILY 06/02/18 06/02/18 History [Calcium 600 + D(3)] docusate sodium [Colace] 100 mg PO BID 06/02/18 06/02/18 History escitalopram oxalate 10 mg PO DAILY 06/02/18 06/02/18 History gabapentin 600 mg PO QID 06/02/18 06/02/18 History hyoscyamine sulfate [Levsin] 0.25 mg PO QID PRN 06/02/18 06/02/18 History ipratropium-albuterol 3 ml INHALATION QID PRN 06/02/18 06/02/18 History megestrol 40 mg PO BID PRN 06/02/18 06/02/18 History omeprazole 20 mg PO DAILY 06/02/18 06/02/18 History Active Medications: Active Medications Acetaminophen (Tylenol Liq) 650 mg PO Q6H PRN PRN Reason: FEVER Last Admin: 06/03/18 15:45 Dose: 650 mg Albuterol (Albuterol Neb (Prn)) 2.5 mg NEB Q2HR NEB PRN PRN Reason: DYSPNEA Artificial Tears (Tears Naturale Opth Drops) 1 drop EACH EYE Q8H [facility] Last Admin: 06/03/18 15:46 Dose: 1 drop Aspirin (Aspirin) 325 mg PO Q12HR [facility] Last Admin: 06/03/18 12:41 Dose: 325 mg Chlorhexidine Gluconate (Peridex 0.12% Oral Kit) 15 ml OROPHARYNG BID@0800, 2000 [facility] Last Admin: 06/03/18 10:21 Dose: 15 ml Chlorhexidine Gluconate (Peridex 0.12% Oral Kit) 15 ml OROPHARYNG BID@0800, 2000 [facility] Last Admin: 06/03/18 09:37 Dose: 15 ml Dextrose (D50w Vial) 50 ml IV.PUSH UNSCH PRN PRN Reason: PER HYPOGLYCEMIA PROTOCOL Glucagon (Glucagon Inj) 1 mg OTHER PRN PRN PRN Reason: for Hypoglycemia Protocol Heparin Sodium (Porcine) (Heparin Inj) 5,000 units SQ Q12HR [facility] Last Admin: 06/03/18 08:58 Dose: 5,000 units Norepinephrine Bitartrate 16 (mg/ Sodium Chloride) 250 mls @ 1.87 mls/hr IV.CONT TITRATE PRN; Protocol PRN Reason: See Protocol Last Admin: 06/03/18 10:37 Dose: 12 mcg/min, 11.25 mls/hr Propofol (Diprivan 1000 Mg/100 Ml Inj) 1,000 mg in 100 mls @ 2.041 mls/hr IV.CONT TITRATE PRN; Protocol PRN Reason: Per Protocol Fentanyl (Fentanyl 10 Mcg/Ml Premix Drip) 2,500 mcg in 250 mls @ 5 mls/hr IV.SIG TITRATE PRN; Protocol PRN Reason: Per Protocol Vasopressin 40 unit/ Sodium (Chloride) 100 mls @ 6 mls/hr IV.CONT CONT [facility]; Protocol Last Admin: 06/03/18 00:18 Dose: 0.04 units/min, 6 mls/hr Magnesium Sulfate Inj 4 gm/ (Sodium Chloride) 100 mls @ 50 mls/hr IV.SIG UNSCH PRN PRN Reason: For Magnesium 0.9 - 1.1 mg/dL Magnesium Sulfate Inj 2 gm/ (Sodium Chloride) 100 mls @ 50 mls/hr IV.SIG UNSCH PRN PRN Reason: For Magnesium 1.2 - 1.6 mg/dL Potassium Chloride (Kcl 40 Meq Premix Inj) 40 meq in 100 mls @ 25 mls/hr IV.SIG Q2H PRN PRN Reason: For Potassium 2.8 - 3.2 mEq/L Potassium Chloride (Kcl 20 Meq Premix Inj) 20 meq in 100 mls @ 50 mls/hr IV.SIG Q2H PRN PRN Reason: For Potassium 3.3 - 3.5 mEq/L Potassium Chloride (Kcl 40 Meq Premix Inj) 40 meq in 100 mls @ 25 mls/hr IV.SIG UNSCH PRN PRN Reason: For Potassium 3.3 - 3.5 mEq/L Potassium Chloride (Kcl 20 Meq Premix Inj) 20 meq in 100 mls @ 50 mls/hr IV.SIG Q2H PRN PRN Reason: For Potassium 2.8 - 3.2 mEq/L Potassium Phosphate 30 mmol/ (Sodium Chloride) 260 mls @ 42 mls/hr IV.SIG UNSCH PRN PRN Reason: SEE LABEL COMMENTS Sodium Phosphate 30 mmol/ (Sodium Chloride) 260 mls @ 42 mls/hr IV.SIG UNSCH PRN PRN Reason: For Phosphorus < 2.5 mg/dL Dextrose/Sodium Chloride (D5w/1/2 Ns Inj) 1,000 mls @ 125 mls/hr IV.CONT .Q8H [facility] Last Admin: 06/03/18 11:42 Dose: 125 mls/hr Meropenem 500 mg/ Sodium (Chloride) 100 mls @ 200 mls/hr IV.SIG Q8H [facility] Last Admin: 06/03/18 12:21 Dose: 200 mls/hr Insulin Aspart (Novolog Insulin Suppl Scale Inj) 0 unit SQ Q4HR [facility]; Protocol Last Admin: 06/03/18 15:47 Dose: Not Given Lactulose (Lactulose Liq) 30 ml PO DAILY [facility] Last Admin: 06/03/18 08:58 Dose: 30 ml Lansoprazole (Prevacid Solutab) 30 mg NG/OG DAILY [facility] Last Admin: 06/03/18 08:58 Dose: 30 mg Magnesium Oxide (Mag-Ox) 800 mg PO UNSCH PRN PRN Reason: For Magnesium 1.2 - 1.6 mg/dL Potassium Bicarb/Potassium Chloride (K-Lyte Cl Eff) 50 meq PO UNSCH PRN PRN Reason: For Potassium 3.3 - 3.5 mEq/L Potassium Phosphate (K-Phos Original) 2,000 mg PO Q4H PRN PRN Reason: Phosphorus Less Than 2.5 mg/dL Potassium Phosphate (K-Phos Original) 2,000 mg PO UNSCH PRN PRN Reason: SEE LABEL COMMENTS Senna/Docusate Sodium (Akiko-Colace) 1 tab PO BID [facility] Last Admin: 06/03/18 10:20 Dose: Not Given Sodium Chloride (Ns Flush) 2 ml IV.FLUSH PRN PRN PRN Reason: FLUSH AFTER USING IV ACCESS Last Admin: 06/03/18 09:00 Dose: 2 ml Terbutaline Sulfate (Brethine Inj) 1 mg SQ UNSCH PRN PRN Reason: For Extravasation Exam Vital signs: Vital Signs 06/02/18 18:25 06/02/18 19:00 06/02/18 19:30 Temperature 97.6 F Pulse Rate 110 H 109 H Respiratory Rate 18 20 Blood Pressure 97/57 L 92/54 L Pulse Oximetry 96 96 98 06/02/18 20:00 06/02/18 21:00 06/02/18 22:00 Temperature 98.2 F Pulse Rate 110 H 114 H 104 H Respiratory Rate 16 16 12 Blood Pressure 82/50 L 109/57 L 87/43 L Pulse Oximetry 97 100 100 06/02/18 23:00 06/02/18 23:39 06/03/18 00:00 Temperature 97.8 F Pulse Rate 114 H 107 H Respiratory Rate 25 H 27 H 28 H Blood Pressure 119/57 L 116/55 L Pulse Oximetry 100 100 98 06/03/18 01:00 06/03/18 02:00 06/03/18 03:00 Temperature Pulse Rate 114 H 114 H 113 H Respiratory Rate 22 29 H 27 H Blood Pressure 146/67 H 126/57 L 114/58 L Pulse Oximetry 100 100 99 06/03/18 04:00 06/03/18 04:10 06/03/18 05:00 Temperature 97.6 F Pulse Rate 113 H 112 H Respiratory Rate 29 H 25 H 25 H Blood Pressure 126/55 L 108/51 L Pulse Oximetry 100 100 100 06/03/18 06:00 06/03/18 08:00 06/03/18 09:00 Temperature 100.8 F H Pulse Rate 111 H 116 H Respiratory Rate 25 H 25 H Blood Pressure 111/70 Pulse Oximetry 100 100 06/03/18 11:47 06/03/18 12:00 06/03/18 14:00 Temperature 100.1 F H Pulse Rate 115 H Respiratory Rate 24 Blood Pressure Pulse Oximetry 06/03/18 14:25 Temperature Pulse Rate Respiratory Rate 27 H Blood Pressure Pulse Oximetry 97 Intake & Output 06/02/18 06/03/18 06/03/18 18:59 06:59 18:59 Intake Total 0 / 0 712 / 712 1000 / 1000 Output Total 75 / 75 Balance 0 / 0 637 / 637 1000 / 1000 Weight 68.039 kg 68.039 kg Intake: IV 0 / 0 712 / 712 1000 / 1000 D5W/1/2 NS Inj 1,000 ML @ 125 1000 / 1000 mls/hr IV.CONT .Q8H [facility] Rx#: [id number] D5W/Normal Saline Inj 1,000 ML 362 / 362 @ 100 mls/hr IV.CONT .Q10H [facility] Rx#:[id number] Levophed Inj 16 MG In NS Inj 250 / 250 234 ML @ 2 MCG/MIN 1.87 mls/hr IV.CONT TITRATE PRN Rx#: [id number] Zosyn 4.5 GM Premix 4.5 gm In 100 / 100 100 ml @ 200 mls/hr IV.SIG Q6H [facility] Rx#:[id number] NS Inj 1,000 ML @ Wide Open IV. 0 / 0 SIG [facility] Rx#:[id number] Oral 0 / 0 Output: Gastric Drainage 75 / 75 Orogastric Tube 75 / 75 Other: # Voids 1 Date of Last Bowel Movement 06/03/18 06/03/18 # Incontinent Bowel Movements 4 - Constitutional no acute distress, thin, chronically ill appearing - Routine Respiratory Exam Present: CTA bilaterally - Routine Cardiovascular Exam Present: tachycardia - Detailed Abdominal Exam Comments: normoactive bowel sounds. Grimaces to palpation throughout on palpation - Routine Extremities Exam Comments: mottled appearance to BLE - Routine Skin Exam Present: mottling - Routine Neurological Exam intubated and sedated Results - Lab Results 06/03/18 17:00 06/03/18 17:00 Most recent lab results ABG pH 7.37 (7.380-7.420) L 06/03/18 05:26 ABG pCO2 26 mmHg (38-42) L 06/03/18 05:26 ABG pO2 197 mmHG (61-120) H 06/03/18 05:26 ABG HCO3 15 mmol/L (22-26) L* 06/03/18 05:26 Calcium 7.3 mg/dL (8.5-10.1) L* 06/03/18 03:30 Phosphorus 2.8 mg/dL (2.5-4.9) 06/03/18 03:30 Magnesium 1.4 mg/dL (1.5-2.5) L 06/03/18 03:30 Assessment and Plan - Assessment (1) Acute kidney failure Code(s): N17.9 - Acute kidney failure, unspecified Status: Acute Plan: Apparently acute renal failure 2/2 to septic shock. UOP minimal at best. Baseline SCr as per previous records 0.4-0.5 likely low 2/2 to debilitation and muscular atrophy. No evidence of edema. Continue on IVF. Suspected she will require dialytic intervention within the next 24-48h given anuria and progressing azotemia. Check renal US, urine eosinophils, complements. Repeat CBC with Fe panel. Check serology. CT scan reviewed showing nephrolithiasis without obstruction. UCx and BCx positive for GNR. Continue abx as per ID. Medications should be adjusted for the patient's renal decline. Avoid nephrotoxins such as iodinated contrast dyes and NSAIDs. Avoid gadolinium. (2) Sepsis Code(s): A41.9 - Sepsis, unspecified organism Status: Acute Plan: Potentially urinary source. Abx as per ID (3) UTI (urinary tract infection) Code(s): N39.0 - Urinary tract infection, site not specified Status: Acute (4) Anemia Code(s): D64.9 - Anemia, unspecified Status: Acute Plan: Repeat CBC with Fe panel. As above, will check serology for completeness. (5) Hypernatremia Code(s): E87.0 - Hyperosmolality and hypernatremia Status: Acute Plan: Indicating free water deficit. Continue IVF with D5 1/2NS (6) Thrombocytopenia Code(s): D69.6 - Thrombocytopenia, unspecified Status: Acute Plan: Related to sepsis? Management/ work-up deferred to CC <Laurie Draper - Last Filed: 06/03/18 19:19> History of Present Illness Primary Care Provider: Sergio Tinsley [facility] - Medical History Medical History: Medical History (Last Updated 06/03/18 @ 18:59 by RITIKA Adame) COPD (chronic obstructive pulmonary disease) Dysphagia GERD (gastroesophageal reflux disease) Hearing deficit Hiatal hernia Hyperlipidemia Hypertension Parkinsons S/P ORIF (open reduction internal fixation) fracture Sleep apnea TIA (transient ischemic attack) - Surgical History Surgical History: Surgical History (Last Updated 06/03/18 @ 19:00 by RITIKA Adame) History of cholecystectomy History of cochlear implant History of total abdominal hysterectomy and bilateral salpingo-oophorectomy Medications and Allergies Active Medications: Active Medications Acetaminophen (Tylenol Liq) 650 mg PO Q6H PRN PRN Reason: FEVER Last Admin: 06/03/18 15:45 Dose: 650 mg Albuterol (Albuterol Neb (Prn)) 2.5 mg NEB Q2HR NEB PRN PRN Reason: DYSPNEA Artificial Tears (Tears Naturale Opth Drops) 1 drop EACH EYE Q8H [facility] Last Admin: 06/03/18 15:46 Dose: 1 drop Aspirin (Aspirin) 325 mg PO Q12HR [facility] Last Admin: 06/03/18 12:41 Dose: 325 mg Chlorhexidine Gluconate (Peridex 0.12% Oral Kit) 15 ml OROPHARYNG BID@0800, 1999 [facility] Last Admin: 06/03/18 10:21 Dose: 15 ml Chlorhexidine Gluconate (Peridex 0.12% Oral Kit) 15 ml OROPHARYNG BID@799, 1999 [facility] Last Admin: 06/03/18 09:37 Dose: 15 ml Dextrose (D50w Vial) 50 ml IV.PUSH UNSCH PRN PRN Reason: PER HYPOGLYCEMIA PROTOCOL Glucagon (Glucagon Inj) 1 mg OTHER PRN PRN PRN Reason: for Hypoglycemia Protocol Heparin Sodium (Porcine) (Heparin Inj) 5,000 units SQ Q12HR [facility] Last Admin: 06/03/18 08:58 Dose: 5,000 units Norepinephrine Bitartrate 16 (mg/ Sodium Chloride) 250 mls @ 1.87 mls/hr IV.CONT TITRATE PRN; Protocol PRN Reason: See Protocol Last Admin: 06/03/18 10:37 Dose: 12 mcg/min, 11.25 mls/hr Propofol (Diprivan 1000 Mg/100 Ml Inj) 1,000 mg in 100 mls @ 2.041 mls/hr IV.CONT TITRATE PRN; Protocol PRN Reason: Per Protocol Fentanyl (Fentanyl 10 Mcg/Ml Premix Drip) 2,500 mcg in 250 mls @ 5 mls/hr IV.SIG TITRATE PRN; Protocol PRN Reason: Per Protocol Vasopressin 40 unit/ Sodium (Chloride) 100 mls @ 6 mls/hr IV.CONT CONT [facility]; Protocol Last Admin: 06/03/18 18:42 Dose: 0.04 units/min, 6 mls/hr Magnesium Sulfate Inj 4 gm/ (Sodium Chloride) 100 mls @ 50 mls/hr IV.SIG UNSCH PRN PRN Reason: For Magnesium 0.9 - 1.1 mg/dL Magnesium Sulfate Inj 2 gm/ (Sodium Chloride) 100 mls @ 50 mls/hr IV.SIG UNSCH PRN PRN Reason: For Magnesium 1.2 - 1.6 mg/dL Potassium Chloride (Kcl 40 Meq Premix Inj) 40 meq in 100 mls @ 25 mls/hr IV.SIG Q2H PRN PRN Reason: For Potassium 2.8 - 3.2 mEq/L Potassium Chloride (Kcl 20 Meq Premix Inj) 20 meq in 100 mls @ 50 mls/hr IV.SIG Q2H PRN PRN Reason: For Potassium 3.3 - 3.5 mEq/L Potassium Chloride (Kcl 40 Meq Premix Inj) 40 meq in 100 mls @ 25 mls/hr IV.SIG UNSCH PRN PRN Reason: For Potassium 3.3 - 3.5 mEq/L Potassium Chloride (Kcl 20 Meq Premix Inj) 20 meq in 100 mls @ 50 mls/hr IV.SIG Q2H PRN PRN Reason: For Potassium 2.8 - 3.2 mEq/L Potassium Phosphate 30 mmol/ (Sodium Chloride) 260 mls @ 42 mls/hr IV.SIG UNSCH PRN PRN Reason: SEE LABEL COMMENTS Sodium Phosphate 30 mmol/ (Sodium Chloride) 260 mls @ 42 mls/hr IV.SIG UNSCH PRN PRN Reason: For Phosphorus < 2.5 mg/dL Dextrose/Sodium Chloride (D5w/1/2 Ns Inj) 1,000 mls @ 125 mls/hr IV.CONT .Q8H [facility] Last Admin: 06/03/18 11:42 Dose: 125 mls/hr Meropenem 500 mg/ Sodium (Chloride) 100 mls @ 200 mls/hr IV.SIG Q8H [facility] Last Admin: 06/03/18 12:21 Dose: 200 mls/hr Insulin Aspart (Novolog Insulin Suppl Scale Inj) 0 unit SQ Q4HR [facility]; Protocol Last Admin: 07/11/18 18:10 Dose: Not Given Lactulose (Lactulose Liq) 30 ml PO DAILY [facility] Last Admin: 06/03/18 08:58 Dose: 30 ml Lansoprazole (Prevacid Solutab) 30 mg NG/OG DAILY [facility] Last Admin: 06/03/18 08:58 Dose: 30 mg Magnesium Oxide (Mag-Ox) 800 mg PO UNSCH PRN PRN Reason: For Magnesium 1.2 - 1.6 mg/dL Potassium Bicarb/Potassium Chloride (K-Lyte Cl Eff) 50 meq PO UNSCH PRN PRN Reason: For Potassium 3.3 - 3.5 mEq/L Potassium Phosphate (K-Phos Original) 2,000 mg PO Q4H PRN PRN Reason: Phosphorus Less Than 2.5 mg/dL Potassium Phosphate (K-Phos Original) 2,000 mg PO UNSCH PRN PRN Reason: SEE LABEL COMMENTS Senna/Docusate Sodium (Akiko-Colace) 1 tab PO BID [facility] Last Admin: 06/03/18 10:20 Dose: Not Given Sodium Chloride (Ns Flush) 2 ml IV.FLUSH PRN PRN PRN Reason: FLUSH AFTER USING IV ACCESS Last Admin: 06/03/18 09:00 Dose: 2 ml Terbutaline Sulfate (Brethine Inj) 1 mg SQ UNSCH PRN PRN Reason: For Extravasation Exam Vital signs: Vital Signs 06/02/18 19:30 06/02/18 20:00 06/02/18 21:00 Temperature 98.2 F Pulse Rate 110 H 114 H Respiratory Rate 16 16 Blood Pressure 82/50 L 109/57 L Pulse Oximetry 98 97 100 06/02/18 22:00 06/02/18 23:00 06/02/18 23:39 Temperature Pulse Rate 104 H 114 H Respiratory Rate 12 25 H 27 H Blood Pressure 87/43 L 119/57 L Pulse Oximetry 100 100 100 06/03/18 00:00 06/03/18 01:00 06/03/18 02:00 Temperature 97.8 F Pulse Rate 107 H 114 H 114 H Respiratory Rate 28 H 22 29 H Blood Pressure 116/55 L 146/67 H 126/57 L Pulse Oximetry 98 100 100 06/03/18 03:00 06/03/18 04:00 06/03/18 04:10 Temperature 97.6 F Pulse Rate 113 H 113 H Respiratory Rate 27 H 29 H 25 H Blood Pressure 114/58 L 126/55 L Pulse Oximetry 99 100 100 06/03/18 05:00 06/03/18 06:00 06/03/18 08:00 Temperature 100.8 F H Pulse Rate 112 H 111 H 117 H Respiratory Rate 25 H 25 H 28 H Blood Pressure 108/51 L 111/70 116/55 L Pulse Oximetry 100 100 100 06/03/18 09:00 06/03/18 11:47 06/03/18 12:00 Temperature 100.1 F H Pulse Rate 116 H 108 H Respiratory Rate 24 25 H Blood Pressure 110/59 L Pulse Oximetry 06/03/18 14:00 06/03/18 14:25 06/03/18 16:00 Temperature Pulse Rate 115 H 109 H Respiratory Rate 27 H 25 H Blood Pressure 114/55 L Pulse Oximetry 97 100 06/03/18 18:00 06/03/18 18:07 Temperature Pulse Rate 103 H 103 H Respiratory Rate 23 Blood Pressure Pulse Oximetry 100 Intake & Output 06/03/18 06/03/18 06/04/18 06:59 18:59 06:59 Intake Total 712 / 712 1100 / 1100 Output Total 75 / 75 30 / 30 Balance 637 / 637 1070 / 1070 Weight 68.039 kg Intake: IV 712 / 712 1100 / 1100 D5W/1/2 NS Inj 1,000 ML @ 125 1000 / 1000 mls/hr IV.CONT .Q8H [facility] Rx#: [id number] D5W/Normal Saline Inj 1,000 ML 362 / 362 @ 100 mls/hr IV.CONT .Q10H [facility] Rx#:[id number] Levophed Inj 16 MG In NS Inj 250 / 250 234 ML @ 2 MCG/MIN 1.87 mls/hr IV.CONT TITRATE PRN Rx#: [id number] Pitressin Inj 40 UNIT In NS Inj 100 / 100 98 ML @ 0.04 UNITS/MIN 6 mls/ hr IV.CONT CONT [facility] Rx#: [id number] Zosyn 4.5 GM Premix 4.5 gm In 100 / 100 100 ml @ 200 mls/hr IV.SIG Q6H [facility] Rx#:[id number] Oral 0 / 0 0 / 0 Output: Urine Amount (Catheter) 0 / 0 Indwelling Urethral Catheter 0 / 0 Gastric Drainage 75 / 75 30 / 30 Orogastric Tube 75 / 75 30 / 30 Other: # Voids 1 Date of Last Bowel Movement 06/03/18 06/03/18 # Incontinent Bowel Movements 4 1 Results - Lab Results 06/03/18 17:00 06/03/18 17:00 Most recent lab results ABG pH 7.37 (7.380-7.420) L 06/03/18 05:26 ABG pCO2 26 mmHg (38-42) L 06/03/18 05:26 ABG pO2 197 mmHG (61-120) H 06/03/18 05:26 ABG HCO3 15 mmol/L (22-26) L* 06/03/18 05:26 Calcium 6.6 mg/dL (8.5-10.1) L* 06/03/18 17:00 Phosphorus 2.8 mg/dL (2.5-4.9) 06/03/18 03:30 Magnesium 1.4 mg/dL (1.5-2.5) L 06/03/18 03:30 Assessment and Plan - Assessment (1) Acute kidney failure Code(s): N17.9 - Acute kidney failure, unspecified Status: Acute (2) Sepsis Code(s): A41.9 - Sepsis, unspecified organism Status: Acute (3) UTI (urinary tract infection) Code(s): N39.0 - Urinary tract infection, site not specified Status: Acute (4) Anemia Code(s): D64.9 - Anemia, unspecified Status: Acute (5) Hypernatremia Code(s): E87.0 - Hyperosmolality and hypernatremia Status: Acute (6) Thrombocytopenia Code(s): D69.6 - Thrombocytopenia, unspecified Status: Acute - Attending Attestation Patient is critically ill with advanced age. Unsure of patient's previous functional status and quality of life. It appears that renal replacement therapy has to be considered we will discuss with family regarding these issues as well as apparent prognosis. The exam, history, and the medical decision-making described in the above note were completed with the assistance of the SARA. I reviewed and agree with the findings presented. I attest that I had a [id number] encounter with the patient on the same day, and personally performed and documented my assessment and findings in the medical record. <Melinda Mora - Last Filed: 06/03/18 18:44> (2) Sepsis Qualifiers: Sepsis type: sepsis due to unspecified organism Qualified Code(s): A41.9 - Sepsis, unspecified organism (3) UTI (urinary tract infection) Qualifiers: Urinary tract infection type: acute cystitis Hematuria presence: without hematuria Qualified Code(s): N30.00 - Acute cystitis without hematuria <Laurie Draper - Last Filed: 06/03/18 19:19> (2) Sepsis Qualifiers: Sepsis type: sepsis due to unspecified organism Qualified Code(s): A41.9 - Sepsis, unspecified organism (3) UTI (urinary tract infection) Qualifiers: Urinary tract infection type: acute cystitis Hematuria presence: without hematuria Qualified Code(s): N30.00 - Acute cystitis without hematuria
[2018-06-03 17:30] LABS: Hematocrit 31.1 % (35.0-46.0); Hemoglobin 9.8 gm/dL (11.6-15.3); Mean Corpuscular HGB Conc 31.7 % (32.0-36.0); Mean Corpuscular Hemoglobin 27.1 pg (27.0-34.0); Mean Corpuscular Volume 85.6 fL (80.0-100.0); Mean Platelet Volume 10.1 fL (7.0-11.0); Platelet Count 43 th/mm3 (150-450); Red Blood Count 3.63 mil/mm3 (4.00-5.30); Red Cell Distribution Width 16.9 % (11.6-17.2); White Blood Count 27.7 th/mm3 (4.0-11.0)
[2018-06-03 18:07] LABS: Albumin 1.8 g/dL (3.4-5.0); Calcium 6.6 mg/dL (8.5-10.1); Carbon Dioxide 14.8 meq/L (21.0-32.0); Potassium 3.5 meq/L (3.5-5.1); Total Protein 4.7 g/dL (6.4-8.2)
--- NOTE | 2018-06-03 18:41 | P.PNCC ---
Subjective Subjective Remarks/Hospital Course: 06/02: This is a 82-year-old aa female. Date of admission 06/02/2018. Date of consultation 06/02/2018. Past medical history includes Parkinson's disease, history of TIA, severe spinal stenosis, hypertension, hyperlipidemia, JULI, COPD , hiatal hernia, gastroesophageal reflux disease and depression. He has LVH and chronic low back pain. She presented to [facility] today secondary to altered mental status. According to records, patient was having difficulty breathing yesterday which resolved after nebulizer treatment 3. She has had a fever which resolved with acetaminophen. She has noticed increasing secretions. In the ED, workup showed no acute findings. Patient was given vancomycin Pipracil/tazobactam and ceftriaxone. Blood cultures 2 and UA currently are pending at time of dictation. CT of the thorax were performed which revealed right basilar subpleural airspace disease, distended fluid-filled esophagus, a dorsal column stimulator and a 4.5 cm mass within the left hepatic lobe. Patient was hypoglycemic on admission and remained apical to be altered. Recent blood sugar was 33. She became hypotensive. A central line was emergently placed she was emergently intubated for airway protection. She is currently on norepinephrine drip at 12 mg/min and received vancomycin Pipracil/ tazobactam. 06/03: Remains orally intubated on mechanical ventilation on Levophed for pressor support. And uric despite fluid boluses. Nephrology consult requested. CT abdomen does not show any evidence of hydronephrosis. Objective Vital Signs / I&O: Vital Signs 06/02/18 19:00 06/02/18 19:30 06/02/18 20:00 Temperature 98.2 F Pulse Rate 109 H 110 H Respiratory Rate 20 16 Blood Pressure 92/54 L 82/50 L Pulse Oximetry 96 98 97 06/02/18 21:00 06/02/18 22:00 06/02/18 23:00 Temperature Pulse Rate 114 H 104 H 114 H Respiratory Rate 16 12 25 H Blood Pressure 109/57 L 87/43 L 119/57 L Pulse Oximetry 100 100 100 06/02/18 23:39 06/03/18 00:00 06/03/18 01:00 Temperature 97.8 F Pulse Rate 107 H 114 H Respiratory Rate 27 H 28 H 22 Blood Pressure 116/55 L 146/67 H Pulse Oximetry 100 98 100 06/03/18 02:00 06/03/18 03:00 06/03/18 04:00 Temperature 97.6 F Pulse Rate 114 H 113 H 113 H Respiratory Rate 29 H 27 H 29 H Blood Pressure 126/57 L 114/58 L 126/55 L Pulse Oximetry 100 99 100 06/03/18 04:10 06/03/18 05:00 06/03/18 06:00 Temperature Pulse Rate 112 H 111 H Respiratory Rate 25 H 25 H 25 H Blood Pressure 108/51 L 111/70 Pulse Oximetry 100 100 100 06/03/18 08:00 06/03/18 09:00 06/03/18 11:47 Temperature 100.8 F H Pulse Rate 117 H 116 H Respiratory Rate 28 H 24 Blood Pressure 116/55 L Pulse Oximetry 100 06/03/18 12:00 06/03/18 14:00 06/03/18 14:25 Temperature 100.1 F H Pulse Rate 108 H 115 H Respiratory Rate 25 H 27 H Blood Pressure 110/59 L Pulse Oximetry 97 06/03/18 16:00 06/03/18 18:00 06/03/18 18:07 Temperature Pulse Rate 109 H 103 H 103 H Respiratory Rate 25 H 23 Blood Pressure 114/55 L Pulse Oximetry 100 Intake & Output 06/02/18 06/03/18 06/03/18 18:59 06:59 18:59 Intake Total 0 / 0 712 / 712 1000 / 1000 Output Total 75 / 75 Balance 0 / 0 637 / 637 1000 / 1000 Weight 68.039 kg 68.039 kg Intake: IV 0 / 0 712 / 712 1000 / 1000 D5W/1/2 NS Inj 1,000 ML @ 125 1000 / 1000 mls/hr IV.CONT .Q8H KLAUDIA Rx#: [id number] D5W/Normal Saline Inj 1,000 ML 362 / 362 @ 100 mls/hr IV.CONT .Q10H KLAUDIA Rx#:[id number] Levophed Inj 16 MG In NS Inj 250 / 250 234 ML @ 2 MCG/MIN 1.87 mls/hr IV.CONT TITRATE PRN Rx#: [id number] Zosyn 4.5 GM Premix 4.5 gm In 100 / 100 100 ml @ 200 mls/hr IV.SIG Q6H KLAUDIA Rx#:[id number] NS Inj 1,000 ML @ Wide Open IV. 0 / 0 SIG BOLUS ONE Rx#:[id number] Oral 0 / 0 Output: Gastric Drainage 75 / 75 Orogastric Tube 75 / 75 Other: # Voids 1 Date of Last Bowel Movement 06/03/18 06/03/18 # Incontinent Bowel Movements 4 Result Diagrams: 06/03/18 17:00 06/03/18 17:00 Imaging: ITS Impressions Abdomen X-Ray 06/02/18 00:00 CONCLUSION: 1. Stool in the rectal vault. Air distention of the gastric lumen. Otherwise, nonobstructive bowel gas pattern with a velocity of air throughout the abdomen. 2. Spinal stimulator tip in the mid dorsal spine. Chest CT 06/02/18 00:00 CONCLUSION: 1. Right basilar subpleural airspace disease and small effusion. 2. No suspicious pulmonary masses. 3. Distended fluid-filled fluid-filled esophagus 4. Status post right mastectomy. 5. Dorsal column stimulator. Chest X-Ray 06/02/18 00:00 CONCLUSION: 1. ETT and NGT in good position. 2. Left IJ central line in good position without pneumothorax. 3. Redemonstration of small right pleural effusion and associated right lower lobe airspace disease. Chest X-Ray 06/02/18 08:45 CONCLUSION: 1. Right basilar opacity representing either acute airspace disease or parenchymal mass. 2. Calcified ascending thoracic aorta. 3. Dorsal column stimulator. Head CT 06/02/18 08:45 CONCLUSION: 1. Advanced cerebral white matter disease characteristic of chronic microvascular ischemic changes 2. No evidence of acute infarct, hemorrhage, mass or edema. 3. Left-sided cochlear implant device. Head CT 06/02/18 20:37 CONCLUSION: 1. Limited study without evidence of an acute intracranial abnormality. 2. Chronic white matter changes are again noted. Abdomen/Pelvis CT 06/03/18 00:00 CONCLUSION: No evidence of acute abdominal or pelvic process. No masses are identified. There is no evidence of abscess. Assessment and Plan - Assessment and Plan Plan: Neuro/Psych: Acute toxic metabolic encephalopathy History of TIAs Parkinson's disease Written for propofol/fentanyl drip for sedation/analgesia while intubated Goal of RASS -2 Daily sedation vacation Acetaminophen 650 mg by tube every 6 hours as needed fever CT brain 06/02 revealed no acute intracranial findings Holding escitalopram 10 mg daily/home medication. Holding gabapentin 600 mg 3 times daily. Continue aspirin 3 mg per rectum for now EEG brain ordered. CV: Severe sepsis History of essential hypertension History of hyperlipidemia Lactic acidosis History of LVH Continue IV fluids. Norepinephrine to maintain mean arterial pressure greater than equal to 92% Serial lactates until cleared Check troponin/CPK and echocardiogram in a.m. 2D echo 2010 revealed LVH. EF 55 6%. Diastolic dysfunction. Mild thickening aortic valve and mitral valve. Resp: Acute hypoxemic respiratory failure History of COPD Obstructive sleep apnea on CPAP at night PRVC 16/500/11/28/ Ventilator bundle Albuterol/ipratropium aerosols every 4 hours with albuterol aerosols every 2 hours. Dyspnea Spontaneous breathing trial CT thorax revealed right basilar subpleural airspace disease and small pleural effusion. No masses. Follow-up on chest x-ray/ABG post intubation GI: Gastroesophageal reflux disease Hiatal hernia 4.5 cm left hepatic mass Transaminitis Patient is on omeprazole 20 mg daily at home. Holding megestrol 40 mg twice daily NGT to LIWS Lansoprazole for GI prophylaxis Docusate sodium/senna 1 tablet for bowel regimen Checking tumor markers CEA, CA-19-9, alpha-fetoprotein and hCG CT abdomen/pelvis revealed a 4.5 cm left hepatic mass Hepatitis panel/CPK ordered : English catheter for accurate I's and O's in a critically ill patient Endo: Hypoglycemia Elevated TSH Sliding scale insulin with Accu-Cheks to maintain euglycemia/every 4 hours low protocol aspart insulin TSH is elevated at 5.7. Check free T4/T3 Started stress dose steroids in view of high pressor requirement. Cortisol level greater than 40. Renal: SCOUT In anuric renal failure. CT abdomen pelvis did not reveal any evidence of obstruction/hydronephrosis. Remains anuric despite multiple fluid boluses. Nephrology consult requested. Patient may need renal replacement therapy. Strict intake output, monitor and replete electrolyte, follow BUN/creatinine. Bicarb drip ordered for metabolic acidosis. Heme: Thrombocytopenia Monitor CBC daily. Follow trends No indication for transfusion of blood products at this time ID: Severe sepsis of unclear source. ID consult requested for further evaluation Started vancomycin and piperacillin/tazobactam on 06/02 Blood cultures 2, urine 06/02 ordered. Sputum and influenza a and B ordered. FEN: Replace electrolytes per ICU electrolyte protocol MSK: Severe spinal stenosis with a history of dorsal column stimulator PT evaluate and treat Access -left IJ CVL (06/02) Prophylaxis -GI -lansoprazole -DVT -SCD/heparin subcu 35 minutes critical care time consultation
[2018-06-03] MEDS: Dextrose 50% in Water 50 ML Vial IV.PUSH PRN (19:33)
[2018-06-03 20:03] LABS: CKMB Percent 1.7 % (0.0-4.0); Creatine Kinase MB 43.7 ng/mL (0.5-3.6)
--- NOTE | 2018-06-03 20:22 | US ---
EXAM DATE: 06/03/2018 8:17 PM EDT AGE/SEX: 82 years / Female INDICATIONS: Elevated creatinine and liver functions. CLINICAL DATA: This is the patient's initial encounter. Patient reports that signs and symptoms have been present for 2 days and indicates a pain score of Nonresponsive. MEDICAL/SURGICAL HISTORY: Chronic obstructive pulmonary disease. Gastroesophageal reflux disea se. Transient ischemic attack. Hiatal hernia. Hyperlipidemia. Hypertension. Parkinson's disease. Sl eep apnea. Cholecystectomy. Hysterectomy. Right mastectomy. L3-5 Laminectomy. Gastric stimulator. C ochlear implant. EGD with dilatation. [place] [facility] [place]/O CONTRAST, 06/03/2018. . MEASUREMENTS: Liver:__ 4.6 x 4.2 x 5.3 cm. Common Bile Duct:___ 5mm. Right Kidney:___9.8 x 4.7 x 5.0 cm. Left Kidney:___10.9 x 5.6 x 4.5 cm. Spleen:___7.6 . FINDINGS: Liver: There is a complex cystic area seen in the left lobe measuring 4.6 x 4.2 x 5.3 cm. This appea rs to be a complex cyst with multiple cysts with thin septations. This was seen on the prior CT exami [facility]. There is dilatation of the central intrahepatic biliary ducts. The patient is status post cho lecystectomy. Portal Vein: Hepatopedal flow seen in portal vein. Common Duct: No intraluminal mass or stone visualized. Gallbladder: Surgically absent. Pancreas: The visualized portions are within normal limits Right Kidney: Increased echotexture. No mass or hydronephrosis. Left Kidney: There is increased echogenicity to the left kidney. There is minimal distention of the collecting system. There is a 4.2 x 3.5 4.0 cm cyst seen at the posterior aspect of the left kidney. Ascites: None Pleural Effusion: None Spleen: No focal lesion. Aorta: Non aneurysmal. IVC: Within normal limits Other: None. CONCLUSION: 1. Bilateral echogenic kidneys consistent with medical renal disease. There is mild distention of th e left collecting system. 2. Complex cystic area seen in the left lobe of the liver. This is fairly benign features and is tho ught could be followed. 3. Dilatation of the central intrahepatic biliary ducts. This may reflect a reservoir phenomenon fol lowing cholecystectomy. The common bile duct is not dilated. Electronically signed by: Sandeep Alejandre MD 06/03/2018 8:21 PM EDT
[2018-06-04] MEDS: Artificial Tears Opth Drops 15 ML Bottle EACH EYE SCH ×2 (00:41→12:46)
[2018-06-04] MEDS: Norepinephrine Inj 16 MG in Sodium Chlor 0.9% Inj 234 ML IV.CONT PRN (03:12)
[2018-06-04] MEDS: Oral Hygiene Kit OROPHARYNG SCH ×4 (04:00→18:37)
[2018-06-04] MEDS: Insulin NovoLOG Aspart Correctional Sugar Inj SQ SCH ×5 (04:00→18:37)
[2018-06-04 04:27] LABS: Hematocrit 27.7 % (35.0-46.0); Mean Corpuscular HGB Conc 32.5 % (32.0-36.0); Mean Corpuscular Hemoglobin 27.2 pg (27.0-34.0); Mean Corpuscular Volume 83.6 fL (80.0-100.0); Mean Platelet Volume 10.8 fL (7.0-11.0); Platelet Count 33 th/mm3 (150-450); Red Blood Count 3.31 mil/mm3 (4.00-5.30); Red Cell Distribution Width 17.4 % (11.6-17.2); White Blood Count 25.2 th/mm3 (4.0-11.0)
[2018-06-04] MEDS: Dextrose 50% in Water 50 ML Vial IV.PUSH PRN ×2 (04:33→18:37)
[2018-06-04] MEDS: Dextrose 5%/NaCl 0.45% Inj 1,000 ML IV.CONT SCH (04:42)
[2018-06-04 05:13] LABS: Albumin 1.6 g/dL (3.4-5.0); Calcium 6.6 mg/dL (8.5-10.1); Carbon Dioxide 13.5 meq/L (21.0-32.0); Potassium 3.4 meq/L (3.5-5.1); Total Protein 4.4 g/dL (6.4-8.2)
[2018-06-04 05:19] LABS: % Iron Saturation 16.2 % (20-50); Albumin 1.5 g/dL (3.4-5.0); Calcium 6.7 mg/dL (8.5-10.1); Carbon Dioxide 13.2 meq/L (21.0-32.0); Kappa Lambda Ratio 1.99 (1.57-3.93); Phosphorus 2.5 mg/dL (2.5-4.9); Potassium 3.3 meq/L (3.5-5.1)
[2018-06-04] MEDS ORDERED: Insulin Detemir Inj 1,000 UNIT/10 ML Vial SQ SCH ×2 (06:27→09:00)
[2018-06-04 07:51] LABS: Acanthocytes 3+; Dohle Bodies Present; Eosinophils 1 % (0-4); Lymphocytes 4 % (9-44); Monocytes 2 % (0-8); Platelet Morphology Normal (Normal); Toxic Vacuolation Present
[2018-06-04 09:02] LABS: Activated Partial Thrombo Time 46.7 sec (24.3-30.1); INR 1.4 Ratio; Prothrombin Time 14.3 sec (9.8-11.6)
--- NOTE | 2018-06-04 09:19 | P.PNCC ---
Subjective Subjective Remarks/Hospital Course: 06/02: This is a 82-year-old aa female. Date of admission 06/02/2018. Date of consultation 06/02/2018. Past medical history includes Parkinson's disease, history of TIA, severe spinal stenosis, hypertension, hyperlipidemia, JULI, COPD , hiatal hernia, gastroesophageal reflux disease and depression. He has LVH and chronic low back pain. She presented to [place] today secondary to altered mental status. According to records, patient was having difficulty breathing yesterday which resolved after nebulizer treatment 3. She has had a fever which resolved with acetaminophen. She has noticed increasing secretions. In the ED, workup showed no acute findings. Patient was given vancomycin Pipracil/tazobactam and ceftriaxone. Blood cultures 2 and UA currently are pending at time of dictation. CT of the thorax were performed which revealed right basilar subpleural airspace disease, distended fluid-filled esophagus, a dorsal column stimulator and a 4.5 cm mass within the left hepatic lobe. Patient was hypoglycemic on admission and remained apical to be altered. Recent blood sugar was 33. She became hypotensive. A central line was emergently placed she was emergently intubated for airway protection. She is currently on norepinephrine drip at 12 mg/min and received vancomycin Pipracil/ tazobactam. 06/03: Remains orally intubated on mechanical ventilation on Levophed for pressor support. And uric despite fluid boluses. Nephrology consult requested. CT abdomen does not show any evidence of hydronephrosis. 06/04: Remains encephalopathic, orally intubated on mechanical ventilation. Gram -negative bacteremia on blood cultures noted. Patient remains on 6 mics of Levophed as well as low-dose vasopressin for pressor support. Has not had any urine output since yesterday morning. Worsening mottling noted over lower extremities extending up to the thighs. Worsening platelet count and metabolic acidosis. Objective Vital Signs / I&O: Vital Signs 06/03/18 09:00 06/03/18 11:47 06/03/18 12:00 Temperature 100.1 F H Pulse Rate 116 H 108 H Respiratory Rate 24 25 H Blood Pressure 110/59 L Pulse Oximetry 06/03/18 14:00 06/03/18 14:25 06/03/18 16:00 Temperature Pulse Rate 115 H 109 H Respiratory Rate 27 H 25 H Blood Pressure 114/55 L Pulse Oximetry 97 100 06/03/18 18:00 06/03/18 18:07 06/03/18 20:00 Temperature 99.0 F Pulse Rate 103 H 103 H 103 H Respiratory Rate 23 25 H Blood Pressure 134/50 L Pulse Oximetry 100 100 06/03/18 20:16 06/03/18 22:00 06/04/18 00:00 Temperature 98.1 F Pulse Rate 105 H 101 H Respiratory Rate 25 H 24 Blood Pressure 126/56 L Pulse Oximetry 100 100 06/04/18 01:22 06/04/18 02:00 06/04/18 04:00 Temperature 99.5 F Pulse Rate 101 H 101 H Respiratory Rate 23 24 Blood Pressure 126/53 L Pulse Oximetry 100 100 06/04/18 04:12 06/04/18 06:00 06/04/18 07:32 Temperature Pulse Rate 101 H 97 H Respiratory Rate 23 Blood Pressure Pulse Oximetry 100 06/04/18 07:50 Temperature Pulse Rate Respiratory Rate Blood Pressure Pulse Oximetry 100 Intake & Output 06/03/18 06/04/18 06/04/18 18:59 06:59 18:59 Intake Total 1100 / 1100 2550 / 2550 Output Total 265 / 265 Balance 1070 / 1070 2285 / 2285 Weight 70.2 kg Intake: IV 1100 / 1100 2550 / 2550 D5W/1/2 NS Inj 1,000 ML @ 125 1000 / 1000 2000 / 2000 mls/hr IV.CONT .Q8H KLAUDIA Rx#: [id number] Levophed Inj 16 MG In NS Inj 250 / 250 234 ML @ 2 MCG/MIN 1.87 mls/hr IV.CONT TITRATE PRN Rx#: [id number] Pitressin Inj 40 UNIT In NS Inj 100 / 100 98 ML @ 0.04 UNITS/MIN 6 mls/ hr IV.CONT CONT KLAUDIA Rx#: [id number] Merrem Inj 500 MG In NS Inj 100 300 / 300 ML @ 200 mls/hr IV.SIG Q8H KLAUDIA Rx#:[id number] Oral 0 / 0 0 / 0 Output: Urine 20 / 20 Urine Amount (Catheter) 0 / 0 Indwelling Urethral Catheter 0 / 0 Gastric Drainage 245 / 245 Orogastric Tube 245 / 245 Other: Date of Last Bowel Movement 0706/04/18 06/04/18 # Incontinent Bowel Movements 1 3 Result Diagrams: 06/04/18 04:00 06/04/18 04:00 Other Results: Laboratory Results - last 24 hr 06/02/18 06/03/18 06/03/18 09:00 09:20 14:14 WBC RBC Hgb Hct MCV MCH MCHC RDW Plt Count MPV Prelim Diff (Auto) WBC Differential Seg Neuts % (Manual) Band Neuts % (Manual) Lymphocytes % (Manual) Monocytes % (Manual) Eosinophils % (Manual) Abs Neuts (Manual) Differential Comment Toxic Vacuolation Dohle Bodies Platelet Estimate Platelet Morphology Acanthocytes (Spur) PT INR APTT Sodium Potassium Chloride Carbon Dioxide Anion Gap BUN Creatinine Estimated GFR POC Glucose 108 80 Random Glucose Lactic Acid Calcium Prot Corrected Calcium Phosphorus Iron TIBC % Saturation Ferritin Total Bilirubin AST ALT Alkaline Phosphatase Total Creatine Kinase CK-MB (CK-2) CK-MB (CK-2) % Total Protein Total Protein (PEP) Albumin Vitamin D 25-Hydroxy PTH Intact Urine Color Yellow Urine Clarity Hazy H Urine pH 8.0 Ur Specific [place] 1.010 Urine Protein Negative Urine Glucose (UA) Negative Urine Ketones Negative Urine Occult Blood Moderate H Urine Nitrate Positive H Urine Bilirubin Negative Urine Urobilinogen Less than 2 Ur Leukocyte Esterase Moderate H Urine RBC 1 Urine WBC 14 H Ur Squamous Epith Cells 2 Urine Bacteria Many H Urine Mucus Few H Micro UA Comment Cath-culture ind Urine Culture Comments Cath-cult indicated Urine Eosinophils Ur Random Creatinine Ur Random Sodium IgG IgA IgM [place]/Lambda Ratio [place] Light Chain Anal Lambda Light Chain Anal 06/03/18 06/03/18 06/03/18 17:00 17:00 17:00 WBC 27.7 H RBC 3.63 L Hgb 9.8 L Hct 31.1 L MCV 85.6 MCH 27.1 MCHC 31.7 L RDW 16.9 Plt Count 43 L MPV 10.1 Prelim Diff (Auto) WBC Differential Seg Neuts % (Manual) Band Neuts % (Manual) Lymphocytes % (Manual) Monocytes % (Manual) Eosinophils % (Manual) Abs Neuts (Manual) Differential Comment Toxic Vacuolation Dohle Bodies Platelet Estimate Platelet Morphology Acanthocytes (Spur) PT INR APTT Sodium 143 Potassium 3.5 Chloride 111 H Carbon Dioxide 14.8 L Anion Gap 17 H BUN 30 H Creatinine 2.65 H Estimated GFR 21 L POC Glucose Random Glucose 66 L Lactic Acid 5.9 H* Calcium 6.6 L* Prot Corrected Calcium 7.8 L D Phosphorus Iron TIBC % Saturation Ferritin Total Bilirubin 1.1 H AST 457 H ALT 119 H Alkaline Phosphatase 77 Total Creatine Kinase CK-MB (CK-2) CK-MB (CK-2) % Total Protein 4.7 L Total Protein (PEP) Albumin 1.8 L Vitamin D 25-Hydroxy PTH Intact Urine Color Urine Clarity Urine pH Ur Specific [place] Urine Protein Urine Glucose (UA) Urine Ketones Urine Occult Blood Urine Nitrate Urine Bilirubin Urine Urobilinogen Ur Leukocyte Esterase Urine RBC Urine WBC Ur Squamous Epith Cells Urine Bacteria Urine Mucus Micro UA Comment Urine Culture Comments Urine Eosinophils Ur Random Creatinine Ur Random Sodium IgG IgA IgM [place]/Lambda Ratio [place] Light Chain Anal Lambda Light Chain Anal 06/03/18 06/03/18 06/03/18 17:00 19:27 20:00 WBC RBC Hgb Hct MCV MCH MCHC RDW Plt Count MPV Prelim Diff (Auto) WBC Differential Seg Neuts % (Manual) Band Neuts % (Manual) Lymphocytes % (Manual) Monocytes % (Manual) Eosinophils % (Manual) Abs Neuts (Manual) Differential Comment Toxic Vacuolation Dohle Bodies Platelet Estimate Platelet Morphology Acanthocytes (Spur) PT INR APTT Sodium Potassium Chloride Carbon Dioxide Anion Gap BUN Creatinine Estimated GFR POC Glucose 50 L 136 H Random Glucose Lactic Acid Calcium Prot Corrected Calcium Phosphorus Iron TIBC % Saturation Ferritin Total Bilirubin AST ALT Alkaline Phosphatase Total Creatine Kinase 2524 H CK-MB (CK-2) 43.7 H CK-MB (CK-2) % 1.7 Total Protein Total Protein (PEP) Albumin Vitamin D 25-Hydroxy PTH Intact Urine Color Urine Clarity Urine pH Ur Specific [place] Urine Protein Urine Glucose (UA) Urine Ketones Urine Occult Blood Urine Nitrate Urine Bilirubin Urine Urobilinogen Ur Leukocyte Esterase Urine RBC Urine WBC Ur Squamous Epith Cells Urine Bacteria Urine Mucus Micro UA Comment Urine Culture Comments Urine Eosinophils Ur Random Creatinine Ur Random Sodium IgG IgA IgM [place]/Lambda Ratio [place] Light Chain Anal Lambda Light Chain Anal 06/03/18 06/03/18 06/04/18 22:45 22:45 00:28 WBC RBC Hgb Hct MCV MCH MCHC RDW Plt Count MPV Prelim Diff (Auto) WBC Differential Seg Neuts % (Manual) Band Neuts % (Manual) Lymphocytes % (Manual) Monocytes % (Manual) Eosinophils % (Manual) Abs Neuts (Manual) Differential Comment Toxic Vacuolation Dohle Bodies Platelet Estimate Platelet Morphology Acanthocytes (Spur) PT INR APTT Sodium Potassium Chloride Carbon Dioxide Anion Gap BUN Creatinine Estimated GFR POC Glucose 93 Random Glucose Lactic Acid Calcium Prot Corrected Calcium Phosphorus Iron TIBC % Saturation Ferritin Total Bilirubin AST ALT Alkaline Phosphatase Total Creatine Kinase CK-MB (CK-2) CK-MB (CK-2) % Total Protein Total Protein (PEP) Albumin Vitamin D 25-Hydroxy PTH Intact Urine Color Urine Clarity Urine pH Ur Specific [place] Urine Protein Urine Glucose (UA) Urine Ketones Urine Occult Blood Urine Nitrate Urine Bilirubin Urine Urobilinogen Ur Leukocyte Esterase Urine RBC Urine WBC Ur Squamous Epith Cells Urine Bacteria Urine Mucus Micro UA Comment Urine Culture Comments Urine Eosinophils Rare H Ur Random Creatinine Less than 5 L Ur Random Sodium 141 IgG IgA IgM [place]/Lambda Ratio [place] Light Chain Anal Lambda Light Chain Anal 06/04/18 06/04/18 06/04/18 04:00 04:00 04:00 WBC 25.2 H RBC 3.31 L Hgb 9.0 L Hct 27.7 L MCV 83.6 MCH 27.2 MCHC 32.5 RDW 17.4 H Plt Count 33 L MPV 10.8 Prelim Diff (Auto) Manual diff required WBC Differential Manual diff final Seg Neuts % (Manual) 79 H Band Neuts % (Manual) 14 H Lymphocytes % (Manual) 4 L Monocytes % (Manual) 2 Eosinophils % (Manual) 1 Abs Neuts (Manual) 23.4 H Differential Comment . Toxic Vacuolation Present H Dohle Bodies Present H Platelet Estimate Low L Platelet Morphology Normal Acanthocytes (Spur) 3+ H PT INR APTT Sodium 142 141 Potassium 3.4 L 3.3 L Chloride 111 H 111 H Carbon Dioxide 13.5 L 13.2 L Anion Gap 18 H 17 H BUN 31 H 31 H Creatinine 2.93 H 2.91 H Estimated GFR 18 L 19 L POC Glucose Random Glucose 76 78 Lactic Acid Calcium 6.6 L* 6.7 L* Prot Corrected Calcium 8.0 L Phosphorus 2.5 Iron 31 L TIBC 192 L % Saturation 16.2 L Ferritin 346 H Total Bilirubin 1.2 H AST 358 H ALT 109 H Alkaline Phosphatase 88 Total Creatine Kinase CK-MB (CK-2) CK-MB (CK-2) % Total Protein 4.4 L Total Protein (PEP) 4.4 L Albumin 1.6 L 1.5 L Vitamin D 25-Hydroxy 28.9 L PTH Intact Urine Color Urine Clarity Urine pH Ur Specific [place] Urine Protein Urine Glucose (UA) Urine Ketones Urine Occult Blood Urine Nitrate Urine Bilirubin Urine Urobilinogen Ur Leukocyte Esterase Urine RBC Urine WBC Ur Squamous Epith Cells Urine Bacteria Urine Mucus Micro UA Comment Urine Culture Comments Urine Eosinophils Ur Random Creatinine Ur Random Sodium IgG 807 IgA 224 IgM 30 L [place]/Lambda Ratio 1.99 [place] Light Chain Anal 229 Lambda Light Chain Anal 115 06/04/18 06/04/18 06/04/18 04:00 04:30 04:51 WBC RBC Hgb Hct MCV MCH MCHC RDW Plt Count MPV Prelim Diff (Auto) WBC Differential Seg Neuts % (Manual) Band Neuts % (Manual) Lymphocytes % (Manual) Monocytes % (Manual) Eosinophils % (Manual) Abs Neuts (Manual) Differential Comment Toxic Vacuolation Dohle Bodies Platelet Estimate Platelet Morphology Acanthocytes (Spur) PT INR APTT Sodium Potassium Chloride Carbon Dioxide Anion Gap BUN Creatinine Estimated GFR POC Glucose 64 L 133 H Random Glucose Lactic Acid Calcium Prot Corrected Calcium Phosphorus Iron TIBC % Saturation Ferritin Total Bilirubin AST ALT Alkaline Phosphatase Total Creatine Kinase CK-MB (CK-2) CK-MB (CK-2) % Total Protein Total Protein (PEP) Albumin Vitamin D 25-Hydroxy PTH Intact 229.0 H Urine Color Urine Clarity Urine pH Ur Specific [place] Urine Protein Urine Glucose (UA) Urine Ketones Urine Occult Blood Urine Nitrate Urine Bilirubin Urine Urobilinogen Ur Leukocyte Esterase Urine RBC Urine WBC Ur Squamous Epith Cells Urine Bacteria Urine Mucus Micro UA Comment Urine Culture Comments Urine Eosinophils Ur Random Creatinine Ur Random Sodium IgG IgA IgM [place]/Lambda Ratio [place] Light Chain Anal Lambda Light Chain Anal 06/04/18 08:31 WBC RBC Hgb Hct MCV MCH MCHC RDW Plt Count MPV Prelim Diff (Auto) WBC Differential Seg Neuts % (Manual) Band Neuts % (Manual) Lymphocytes % (Manual) Monocytes % (Manual) Eosinophils % (Manual) Abs Neuts (Manual) Differential Comment Toxic Vacuolation Dohle Bodies Platelet Estimate Platelet Morphology Acanthocytes (Spur) PT 14.3 H INR 1.4 APTT 46.7 H Sodium Potassium Chloride Carbon Dioxide Anion Gap BUN Creatinine Estimated GFR POC Glucose Random Glucose Lactic Acid Calcium Prot Corrected Calcium Phosphorus Iron TIBC % Saturation Ferritin Total Bilirubin AST ALT Alkaline Phosphatase Total Creatine Kinase CK-MB (CK-2) CK-MB (CK-2) % Total Protein Total Protein (PEP) Albumin Vitamin D 25-Hydroxy PTH Intact Urine Color Urine Clarity Urine pH Ur Specific [place] Urine Protein Urine Glucose (UA) Urine Ketones Urine Occult Blood Urine Nitrate Urine Bilirubin Urine Urobilinogen Ur Leukocyte Esterase Urine RBC Urine WBC Ur Squamous Epith Cells Urine Bacteria Urine Mucus Micro UA Comment Urine Culture Comments Urine Eosinophils Ur Random Creatinine Ur Random Sodium IgG IgA IgM [place]/Lambda Ratio [place] Light Chain Anal Lambda Light Chain Anal Imaging: ITS Impressions Abdomen X-Ray 06/02/18 00:00 CONCLUSION: 1. Stool in the rectal vault. Air distention of the gastric lumen. Otherwise, nonobstructive bowel gas pattern with a velocity of air throughout the abdomen. 2. Spinal stimulator tip in the mid dorsal spine. Chest CT 06/02/18 00:00 CONCLUSION: 1. Right basilar subpleural airspace disease and small effusion. 2. No suspicious pulmonary masses. 3. Distended fluid-filled fluid-filled esophagus 4. Status post right mastectomy. 5. Dorsal column stimulator. Chest X-Ray 06/02/18 00:00 CONCLUSION: 1. ETT and NGT in good position. 2. Left IJ central line in good position without pneumothorax. 3. Redemonstration of small right pleural effusion and associated right lower lobe airspace disease. Chest X-Ray 06/02/18 08:45 CONCLUSION: 1. Right basilar opacity representing either acute airspace disease or parenchymal mass. 2. Calcified ascending thoracic aorta. 3. Dorsal column stimulator. Head CT 06/02/18 08:45 CONCLUSION: 1. Advanced cerebral white matter disease characteristic of chronic microvascular ischemic changes 2. No evidence of acute infarct, hemorrhage, mass or edema. 3. Left-sided cochlear implant device. Head CT 06/02/18 20:37 CONCLUSION: 1. Limited study without evidence of an acute intracranial abnormality. 2. Chronic white matter changes are again noted. Abdomen Ultrasound 06/03/18 00:00 CONCLUSION: 1. Bilateral echogenic kidneys consistent with medical renal disease. There is mild distention of the left collecting system. 2. Complex cystic area seen in the left lobe of the liver. This is fairly benign features and is thought could be followed. 3. Dilatation of the central intrahepatic biliary ducts. This may reflect a reservoir phenomenon following cholecystectomy. The common bile duct is not dilated. Abdomen/Pelvis CT 06/03/18 00:00 CONCLUSION: No evidence of acute abdominal or pelvic process. No masses are identified. There is no evidence of abscess. Objective Remarks: HEENT/ Neuro: Encephalopathic/comatose, orally intubated, Pallor present, no icterus, tongue/ mucosa moist Neck: No JVD Chest/Pulm: on mech vent, good air entry bilaterally, no wheezing or crackles CVS: S1-S2 regular, no murmur GI/abdomen: soft, nontender, bowel sounds sluggish Extremities: Mottling noted over bilateral lower extremities more on the thighs and legs. Legs feel cool distally. Dopplerable pulses bilaterally. Assessment and Plan - Assessment and Plan Plan: Neuro/Psych: Acute toxic metabolic encephalopathy History of TIAs Parkinson's disease Written for propofol/fentanyl drip for sedation/analgesia while intubated however has not required any sedation and remains encephalopathic Goal of RASS -2 Daily sedation vacation Acetaminophen 650 mg by tube every 6 hours as needed fever CT brain 06/02 revealed no acute intracranial findings Holding escitalopram 10 mg daily/home medication. Holding gabapentin 600 mg 3 times daily. Hold aspirin in view of worsening thrombocytopenia EEG brain ordered. CV: Septic shock History of essential hypertension History of hyperlipidemia Lactic acidosis History of LVH Continue IV fluids. Switched to bicarb drip due to metabolic acidosis Norepinephrine/vasopressin gtt. to maintain mean arterial pressure greater than equal to 92% Serial lactates 2D echo 2010 revealed LVH. EF 55 6%. Diastolic dysfunction. Mild thickening aortic valve and mitral valve. Resp: Acute hypoxemic respiratory failure History of COPD Obstructive sleep apnea on CPAP at night Continue mechanical ventilation, Ventilator bundle Albuterol/ipratropium aerosols every 4 hours with albuterol aerosols every [address] thorax revealed right basilar subpleural airspace disease and small pleural effusion. No masses. GI: Gastroesophageal reflux disease Hiatal hernia 4.5 cm left hepatic mass Transaminitis Patient is on omeprazole 20 mg daily at home. Holding megestrol 40 mg twice daily NGT to ANILAWS Lansoprazole for GI prophylaxis Docusate sodium/senna 1 tablet for bowel regimen Checking tumor markers CEA, CA-19-9, alpha-fetoprotein and hCG CT abdomen/pelvis revealed a 4.5 cm left hepatic mass : English catheter for accurate I's and O's in a critically ill patient Endo: Hypoglycemia Elevated TSH Sliding scale insulin with Accu-Cheks to maintain euglycemia/every 4 hours low protocol aspart insulin TSH is elevated at 5.7. Check free T4/T3 Started stress dose steroids in view of high pressor requirement. Cortisol level greater than 40. Discontinued Levemir which is ordered on admission. Renal: SCOUT In anuric renal failure. CT abdomen pelvis did not reveal any evidence of obstruction/hydronephrosis. Remains anuric despite multiple fluid boluses. Nephrology consult requested. Patient may need renal replacement therapy. Strict intake output, monitor and replete electrolyte, follow BUN/creatinine. Bicarb drip ordered for metabolic acidosis. Heme: Thrombocytopenia Suspected DIC Monitor CBC daily. Follow trends Check PT/INR PTT and fibrinogen to evaluate for DIC ID: Septic shock Gram-negative bacteremia UTI . ID following Started vancomycin and piperacillin/tazobactam on 06/02 06/02 Blood cultures 2 with gram-negative rods, 06/02 Urine culture Proteus MSK: Severe spinal stenosis with a history of dorsal column stimulator Ordered lower extremity venous Dopplers as well as arterial Dopplers to evaluate for venous/arterial thrombosis. Access -left IJ CVL (06/02) Prophylaxis -GI -lansoprazole -DVT -SCDs Had a long discussion with patient's daughter at bedside regarding critical condition including possible need for renal replacement therapy though not sure if patient will tolerate hemodialysis. We will consult palliative care to assist with deciding goals of therapy. Prognosis appears poor. 35 minutes critical care time consultation
[2018-06-04 10:29] LABS: ABG Base Excess -9.8 mmol/L (-2-2); ABG PCO2 24 mmHg (38-42); ABG PO2 183 mmHG (61-120)
--- NOTE | 2018-06-04 10:50 | US ---
EXAM DATE: 06/04/2018 10:41 AM EDT AGE/SEX: 82 years / Female INDICATIONS: Bilateral leg swelling. CLINICAL DATA: This is the patient's initial encounter. Patient reports that signs and symptoms have been present for 1 day and indicates a pain score of Nonresponsive. MEDICAL/SURGICAL HISTORY: Chronic obstructive pulmonary disease. Gastroesophageal reflux disea se. Hiatal hernia. Hyperlipidemia. HTN. Parkinson's. TIA. Sleep apnea. Renal failure. Cholecystect chava. Hysterectomy. Bilateral salpingo-oophorectomy. Cochlear implant COMPARISON: [facility] [place], [place] ABDOMEN COMPLETE, 06/03/2018. . TECHNIQUE: Venous ultrasound of both lower extremities was performed from the inguinal ligament to t he proximal calf. Real-time, color Doppler and spectral tracing, compression and augmentation techni ques were used. FINDINGS: Right Leg: Normal compression of the deep venous system from the inguinal region to the proximal milli f. No echogenic clot is seen. Normal response of the venous system to augmentation and respiration. Left Leg: There is normal compressibility of the deep venous system from the inguinal region to the proximal calf. No echogenic clot is seen in the lumen of the common femoral, femoral, popliteal, and posterior tibial veins. There is a normal response of the venous system to proximal and distal augme ntation and respiration CONCLUSION: No evidence of deep venous thrombosis. Electronically signed by: Ernst Rao MD 06/04/2018 10:48 AM EDT
--- NOTE | 2018-06-04 11:28 | P.PNID ---
Subjective Remarks: ID Xcover for . Patient is an 82-year-old female, brought into the hospital for further evaluation of decreased level of consciousness. She apparently had some fevers and some confusion the day prior to admission. Later on she was noted to be a little bit short of breath and and was more confused, and then later on was noted to be lethargic. On the day of admission her lethargy seemed to be worse , so she was brought into the hospital for further evaluation and treatment. There is some mention that she had some exposure to some family members who were sick. There was no mention of any cough or any chest congestion. No nausea or vomiting, diarrhea or any complaints regarding urination. Since admission highest temperature has been around 100. Her white count was initially 7.4 and it went up to 30.9, with significant bandemia. Her lactic acid was very elevated. Her creatinine was initially 0.95, and it went up to 2.26. Her AST and ALT are also increasing. Urinalysis showed [address] of the head did not show any acute abnormality. Chest x-ray showed right infiltrate, and CT of the chest showed a right subpleural disease. 2 blood cultures done on admission are now reported as growing gram-negative mihaela. Patient is hypotensive, and currently receiving 2 pressors. Infectious disease consultation has been requested to evaluate the patient with severe sepsis and shock. Overnight events reviewed. Low grade fevers persist. On multiple high dose pressors. Possible need for CVVHD and placement of Vascath per juma SANDERSON MD. No rash Mottling of skin noted. Secretions moderate raymundo. No diarrhea Antibiotics: Meropenem IV Lines: Lines ok Past Medical History: Medical History COPD (chronic obstructive pulmonary disease) GERD (gastroesophageal reflux disease) Hiatal hernia Hyperlipidemia Hypertension Parkinsons Sleep apnea TIA (transient ischemic attack) Surgical History: Surgical History History of cholecystectomy Allergies/Adverse Reactions: Allergies carbidopa Allergy (Verified 06/02/18 08:57) Lethargy duloxetine [From Cymbalta] Allergy (Verified 06/02/18 08:57) Nausea levodopa [From Sinemet] Adverse Reaction (Verified 06/02/18 08:57) Lethargy Objective Vital Signs 06/03/18 11:47 06/03/18 12:00 06/03/18 14:00 Temperature 100.1 F H Pulse Rate 108 H 115 H Respiratory Rate 24 25 H Blood Pressure 110/59 L Pulse Oximetry 06/03/18 14:25 06/03/18 16:00 06/03/18 18:00 Temperature Pulse Rate 109 H 103 H Respiratory Rate 27 H 25 H Blood Pressure 114/55 L Pulse Oximetry 97 100 06/03/18 18:07 06/03/18 20:00 06/03/18 20:16 Temperature 99.0 F Pulse Rate 103 H 103 H Respiratory Rate 23 25 H 25 H Blood Pressure 134/50 L Pulse Oximetry 100 100 100 06/03/18 22:00 06/04/18 00:00 06/04/18 01:22 Temperature 98.1 F Pulse Rate 105 H 101 H Respiratory Rate 24 23 Blood Pressure 126/56 L Pulse Oximetry 100 100 06/04/18 02:00 06/04/18 04:00 06/04/18 04:12 Temperature 99.5 F Pulse Rate 101 H 101 H Respiratory Rate 24 23 Blood Pressure 126/53 L Pulse Oximetry 100 100 06/04/18 06:00 06/04/18 07:32 06/04/18 07:50 Temperature Pulse Rate 101 H 97 H Respiratory Rate Blood Pressure Pulse Oximetry 100 06/04/18 08:00 06/04/18 08:59 06/04/18 09:00 Temperature 98.9 F Pulse Rate 97 H 96 H Respiratory Rate 26 H 24 Blood Pressure 138/64 Pulse Oximetry 100 100 06/04/18 10:00 Temperature Pulse Rate 124 H Respiratory Rate Blood Pressure Pulse Oximetry Intake & Output 06/03/18 06/04/18 06/04/18 18:59 06:59 18:59 Intake Total 1100 / 1100 2550 / 2550 Output Total 30 / 30 265 / 265 Balance 1070 / 1070 2285 / 2285 Weight 70.2 kg Intake: IV 1100 / 1100 2550 / 2550 D5W/1/2 NS Inj 1,000 ML @ 125 1000 / 1000 2000 / 2000 mls/hr IV.CONT .Q8H KLAUDIA Rx#: [id number] Levophed Inj 16 MG In NS Inj 250 / 250 234 ML @ 2 MCG/MIN 1.87 mls/hr IV.CONT TITRATE PRN Rx#: [id number] Pitressin Inj 40 UNIT In NS Inj 100 / 100 98 ML @ 0.04 UNITS/MIN 6 mls/ hr IV.CONT CONT KLAUDIA Rx#: [id number] Merrem Inj 500 MG In NS Inj 100 300 / 300 ML @ 200 mls/hr IV.SIG Q8H KLAUDIA Rx#:[id number] Oral 0 / 0 0 / 0 Output: Urine 20 / 20 Urine Amount (Catheter) 0 / 0 Indwelling Urethral Catheter 0 / 0 Gastric Drainage 245 / 245 Orogastric Tube 245 / 245 Other: Date of Last Bowel Movement 06/03/18 06/04/18 06/04/18 # Incontinent Bowel Movements 1 3 06/03/18 12:16 Blood - Peripheral Aerobic Blood Culture - Preliminary No growth in 1 day 06/03/18 12:16 Blood - Peripheral Anaerobic Blood Culture - Preliminary No growth in 1 day 06/03/18 12:08 Blood - Peripheral Aerobic Blood Culture - Preliminary No growth in 1 day 06/03/18 12:08 Blood - Peripheral Anaerobic Blood Culture - Preliminary No growth in 1 day 06/03/18 18:30 Sputum - Endotracheal Gram Stain - Final 06/03/18 18:30 Sputum - Endotracheal Sputum Culture - Pending 06/02/18 09:00 Catheterized Urine Urine Culture - Final Proteus mirabilis 06/03/18 02:10 Sputum - Endotracheal Gram Stain - Final 06/03/18 02:10 Sputum - Endotracheal Sputum Culture - Pending 06/02/18 08:20 Blood - Peripheral Aerobic Blood Culture - Preliminary Proteus species 06/02/18 08:20 Blood - Peripheral Anaerobic Blood Culture - Preliminary gram negative rods 06/02/18 08:30 Blood - Peripheral Aerobic Blood Culture - Preliminary gram negative rods 06/02/18 08:30 Blood - Peripheral Anaerobic Blood Culture - Preliminary gram negative rods 06/03/18 03:45 Nasal Aspirate Influenza Types A,B Antigen - Final Negative for FLU A and B antigen Infection due to influenza A or B cannot be ruled out since the antigen present in the sample may be below the detection limit of the test. Lab - Hematology Results 06/03/18 06/03/18 06/04/18 03:30 17:00 04:00 WBC 30.9 H D 27.7 H 25.2 H RBC 3.53 L 3.63 L 3.31 L Hgb 9.5 L D 9.8 L 9.0 L Hct 30.4 L 31.1 L 27.7 L MCV 86.0 85.6 83.6 MCH 26.9 L 27.1 27.2 MCHC 31.3 L 31.7 L 32.5 RDW 17.5 H 16.9 17.4 H Plt Count 61 L D 43 L 33 L MPV 8.9 10.1 10.8 Prelim Diff (Auto) Slide review pending Manual diff required WBC Differential Manual diff final Manual diff final Seg Neuts % (Manual) 59 79 H Band Neuts % (Manual) 34 H 14 H Lymphocytes % (Manual) 4 L 4 L Monocytes % (Manual) 2 2 Eosinophils % (Manual) 1 Basophils % (Manual) 1 Abs Neuts (Manual) 28.7 H 23.4 H Differential Comment . . Toxic Vacuolation Present H Dohle Bodies Present H Platelet Estimate Low L Low L Platelet Morphology Normal Normal Ovalocytes 2+ H Acanthocytes (Spur) 3+ H Lab - Chemistry Results 06/02/18 06/02/18 06/02/18 12:52 21:06 21:32 Sodium Potassium Chloride Carbon Dioxide Anion Gap BUN Creatinine Estimated GFR POC Glucose 33 L* 147 H Random Glucose Lactic Acid 5.8 H* Uric Acid Calcium Prot Corrected Calcium Phosphorus Magnesium Iron TIBC % Saturation Ferritin Total Bilirubin AST ALT Alkaline Phosphatase Ammonia Lactate Dehydrogenase Total Creatine Kinase CK-MB (CK-2) CK-MB (CK-2) % Troponin I Total Protein Total Protein (PEP) Albumin Tumor Marker AFP Carcinoembryonic Ag CA 19-9 Antigen Tumor Marker HCG Vitamin D 25-Hydroxy TSH Free T4 Free T3 PTH Intact Cortisol 06/02/18 06/02/18 06/02/18 22:16 22:16 22:16 Sodium 149 H Potassium 3.8 Chloride 116 H Carbon Dioxide 17.8 L Anion Gap 15 BUN 27 H Creatinine 2.26 H Estimated GFR 23 L POC Glucose Random Glucose 93 Lactic Acid 8.5 H* Uric Acid Calcium 7.8 L D Prot Corrected Calcium Phosphorus Magnesium Iron TIBC % Saturation Ferritin Total Bilirubin 0.8 AST 331 H ALT 61 H Alkaline Phosphatase 78 Ammonia 12 Lactate Dehydrogenase Total Creatine Kinase CK-MB (CK-2) CK-MB (CK-2) % Troponin I Total Protein 5.0 L D Total Protein (PEP) Albumin 2.0 L Tumor Marker AFP Carcinoembryonic Ag CA 19-9 Antigen Tumor Marker HCG Vitamin D 25-Hydroxy TSH Free T4 Free T3 PTH Intact Cortisol 06/02/18 06/02/18 06/03/18 22:32 23:47 01:45 Sodium Potassium Chloride Carbon Dioxide Anion Gap BUN Creatinine Estimated GFR POC Glucose 91 137 H 85 Random Glucose Lactic Acid Uric Acid Calcium Prot Corrected Calcium Phosphorus Magnesium Iron TIBC % Saturation Ferritin Total Bilirubin AST ALT Alkaline Phosphatase Ammonia Lactate Dehydrogenase Total Creatine Kinase CK-MB (CK-2) CK-MB (CK-2) % Troponin I Total Protein Total Protein (PEP) Albumin Tumor Marker AFP Carcinoembryonic Ag CA 19-9 Antigen Tumor Marker HCG Vitamin D 25-Hydroxy TSH Free T4 Free T3 PTH Intact Cortisol 06/03/18 06/03/18 06/03/18 03:30 03:30 03:30 Sodium 146 H Potassium 3.5 Chloride 114 H Carbon Dioxide 18.4 L Anion Gap 14 BUN 27 H Creatinine 2.12 H Estimated GFR 24 L POC Glucose Random Glucose 78 Lactic Acid 6.1 H* Uric Acid Calcium 7.3 L* Prot Corrected Calcium 8.7 Phosphorus 2.8 Magnesium 1.4 L Iron TIBC % Saturation Ferritin Total Bilirubin 1.0 AST 515 H ALT 99 H Alkaline Phosphatase 68 Ammonia 20 Lactate Dehydrogenase Total Creatine Kinase 730 H CK-MB (CK-2) 14.7 H CK-MB (CK-2) % 2.0 Troponin I 0.26 H D Total Protein 4.6 L Total Protein (PEP) Albumin 1.8 L Tumor Marker AFP Carcinoembryonic Ag CA 19-9 Antigen Tumor Marker HCG Vitamin D 25-Hydroxy TSH 5.640 H Free T4 1.25 Free T3 1.32 L PTH Intact Cortisol 06/03/18 06/03/18 06/03/18 03:30 03:30 03:30 Sodium Potassium Chloride Carbon Dioxide Anion Gap BUN Creatinine Estimated GFR POC Glucose Random Glucose Lactic Acid Uric Acid Calcium Prot Corrected Calcium Phosphorus Magnesium Iron TIBC % Saturation Ferritin Total Bilirubin AST ALT Alkaline Phosphatase Ammonia Lactate Dehydrogenase 2396 H Total Creatine Kinase CK-MB (CK-2) CK-MB (CK-2) % Troponin I Total Protein Total Protein (PEP) Albumin Tumor Marker AFP 8.8 H Carcinoembryonic Ag 1.7 CA 19-9 Antigen 3.7 Tumor Marker HCG Less than 1 Vitamin D 25-Hydroxy TSH Free T4 Free T3 PTH Intact Cortisol 12.8 06/03/18 06/03/18 06/03/18 03:30 04:03 09:20 Sodium Potassium Chloride Carbon Dioxide Anion Gap BUN Creatinine Estimated GFR POC Glucose 94 108 Random Glucose Lactic Acid Uric Acid 3.6 Calcium Prot Corrected Calcium Phosphorus Magnesium Iron TIBC % Saturation Ferritin Total Bilirubin AST ALT Alkaline Phosphatase Ammonia Lactate Dehydrogenase Total Creatine Kinase CK-MB (CK-2) CK-MB (CK-2) % Troponin I Total Protein Total Protein (PEP) Albumin Tumor Marker AFP Carcinoembryonic Ag CA 19-9 Antigen Tumor Marker HCG Vitamin D 25-Hydroxy TSH Free T4 Free T3 PTH Intact Cortisol 06/03/18 06/03/18 06/03/18 14:14 17:00 17:00 Sodium 143 Potassium 3.5 Chloride 111 H Carbon Dioxide 14.8 L Anion Gap 17 H BUN 30 H Creatinine 2.65 H Estimated GFR 21 L POC Glucose 80 Random Glucose 66 L Lactic Acid 5.9 H* Uric Acid Calcium 6.6 L* Prot Corrected Calcium 7.8 L D Phosphorus Magnesium Iron TIBC % Saturation Ferritin Total Bilirubin 1.1 H AST 457 H ALT 119 H Alkaline Phosphatase 77 Ammonia Lactate Dehydrogenase Total Creatine Kinase CK-MB (CK-2) CK-MB (CK-2) % Troponin I Total Protein 4.7 L Total Protein (PEP) Albumin 1.8 L Tumor Marker AFP Carcinoembryonic Ag CA 19-9 Antigen Tumor Marker HCG Vitamin D 25-Hydroxy TSH Free T4 Free T3 PTH Intact Cortisol 06/03/18 06/03/18 06/03/18 17:00 19:27 20:00 Sodium Potassium Chloride Carbon Dioxide Anion Gap BUN Creatinine Estimated GFR POC Glucose 50 L 136 H Random Glucose Lactic Acid Uric Acid Calcium Prot Corrected Calcium Phosphorus Magnesium Iron TIBC % Saturation Ferritin Total Bilirubin AST ALT Alkaline Phosphatase Ammonia Lactate Dehydrogenase Total Creatine Kinase 2524 H CK-MB (CK-2) 43.7 H CK-MB (CK-2) % 1.7 Troponin I Total Protein Total Protein (PEP) Albumin Tumor Marker AFP Carcinoembryonic Ag CA 19-9 Antigen Tumor Marker HCG Vitamin D 25-Hydroxy TSH Free T4 Free T3 PTH Intact Cortisol 06/04/18 06/04/18 06/04/18 00:28 04:00 04:00 Sodium 142 141 Potassium 3.4 L 3.3 L Chloride 111 H 111 H Carbon Dioxide 13.5 L 13.2 L Anion Gap 18 H 17 H BUN 31 H 31 H Creatinine 2.93 H 2.91 H Estimated GFR 18 L 19 L POC Glucose 93 Random Glucose 76 78 Lactic Acid Uric Acid Calcium 6.6 L* 6.7 L* Prot Corrected Calcium 8.0 L Phosphorus 2.5 Magnesium Iron 31 L TIBC 192 L % Saturation 16.2 L Ferritin 346 H Total Bilirubin 1.2 H AST 358 H ALT 109 H Alkaline Phosphatase 88 Ammonia Lactate Dehydrogenase Total Creatine Kinase CK-MB (CK-2) CK-MB (CK-2) % Troponin I Total Protein 4.4 L Total Protein (PEP) 4.4 L Albumin 1.6 L 1.5 L Tumor Marker AFP Carcinoembryonic Ag CA 19-9 Antigen Tumor Marker HCG Vitamin D 25-Hydroxy 28.9 L TSH Free T4 Free T3 PTH Intact Cortisol 06/04/18 06/04/18 06/04/18 04:00 04:30 04:51 Sodium Potassium Chloride Carbon Dioxide Anion Gap BUN Creatinine Estimated GFR POC Glucose 64 L 133 H Random Glucose Lactic Acid Uric Acid Calcium Prot Corrected Calcium Phosphorus Magnesium Iron TIBC % Saturation Ferritin Total Bilirubin AST ALT Alkaline Phosphatase Ammonia Lactate Dehydrogenase Total Creatine Kinase CK-MB (CK-2) CK-MB (CK-2) % Troponin I Total Protein Total Protein (PEP) Albumin Tumor Marker AFP Carcinoembryonic Ag CA 19-9 Antigen Tumor Marker HCG Vitamin D 25-Hydroxy TSH Free T4 Free T3 PTH Intact 229.0 H Cortisol 06/04/18 06/04/18 08:31 09:32 Sodium Potassium Chloride Carbon Dioxide Anion Gap BUN Creatinine Estimated GFR POC Glucose 78 Random Glucose Lactic Acid 4.5 H* Uric Acid Calcium Prot Corrected Calcium Phosphorus Magnesium Iron TIBC % Saturation Ferritin Total Bilirubin AST ALT Alkaline Phosphatase Ammonia Lactate Dehydrogenase Total Creatine Kinase CK-MB (CK-2) CK-MB (CK-2) % Troponin I Total Protein Total Protein (PEP) Albumin Tumor Marker AFP Carcinoembryonic Ag CA 19-9 Antigen Tumor Marker HCG Vitamin D 25-Hydroxy TSH Free T4 Free T3 PTH Intact Cortisol Imaging: ITS Impressions Abdomen X-Ray 06/02/18 00:00 CONCLUSION: 1. Stool in the rectal vault. Air distention of the gastric lumen. Otherwise, nonobstructive bowel gas pattern with a velocity of air throughout the abdomen. 2. Spinal stimulator tip in the mid dorsal spine. Chest CT 06/02/18 00:00 CONCLUSION: 1. Right basilar subpleural airspace disease and small effusion. 2. No suspicious pulmonary masses. 3. Distended fluid-filled fluid-filled esophagus 4. Status post right mastectomy. 5. Dorsal column stimulator. Chest X-Ray 06/02/18 08:45 CONCLUSION: 1. Right basilar opacity representing either acute airspace disease or parenchymal mass. 2. Calcified ascending thoracic aorta. 3. Dorsal column stimulator. Head CT 06/02/18 20:37 CONCLUSION: 1. Limited study without evidence of an acute intracranial abnormality. 2. Chronic white matter changes are again noted. Abdomen Ultrasound 06/03/18 00:00 CONCLUSION: 1. Bilateral echogenic kidneys consistent with medical renal disease. There is mild distention of the left collecting system. 2. Complex cystic area seen in the left lobe of the liver. This is fairly benign features and is thought could be followed. 3. Dilatation of the central intrahepatic biliary ducts. This may reflect a reservoir phenomenon following cholecystectomy. The common bile duct is not dilated. Abdomen/Pelvis CT 06/03/18 00:00 CONCLUSION: No evidence of acute abdominal or pelvic process. No masses are identified. There is no evidence of abscess. Venous Doppler Study 06/04/18 00:00 CONCLUSION: No evidence of deep venous thrombosis. Physical Exam: GENERAL: Patient is a well-nourished, well-developed female, sedated on the vent, not in distress. SKIN: Cool and dry. Has significant mottling of her skin BLE, cool feet. No embolic lesions. HEAD: Atraumatic. Normocephalic. No temporal wasting, or tenderness. EYES: [place] conjunctiva. No petechia or hemorrhage. Pupils equal, round and reactive to light. Extraocular movements full and intact. No scleral icterus. No injection or drainage. EARS, NOSE AND THROAT: Nose without bleeding or purulent nasal discharge. Mucous membranes pink and moist. Orally intubated. NECK: Trachea midline. Supple and not tender, no meningeal signs CARDIOVASCULAR: Regular rate and rhythm. No murmurs, rubs or gallops heard RESPIRATORY: Coarse breath sounds bilaterally. No rales, wheezing or rhonchi ABDOMEN: Soft, nondistended, started grimacing during abdominal palpation, no guarding however. Bowel sounds present and normoactive. No organomegaly. EXTREMITIES: No clubbing, cyanosis, or edema. Cool feet, significant mottling of both lower extremity. NEUROLOGICAL: Sedated on the vent. PSYCHIATRIC: Unable to assess LINE: No evidence of infection : English in place, urine looks clear Assessment and Plan - Plan Impression GNR sepsis with shock, source GI or - UA with mild pyuria - LFTs elevated UTI Renal failure, due to sepsis and shock Elevated LFT, ?biliary source of sepsis Respiratory failure Acidosis due to sepsis Recommendation Continue Meropenem IV for now. Start Teflaro IV for possible MRSA pneumonia pending sputum cultures. CT imaging reviewed. Patient has a spinal stimulator and daughters confirm presence. If goals remain aggressive consider LP to rule out spinal stimulator related meningitis. Palliative care consulted. Follow cultures Follow clinically. juma SANDERSON MD and RN. Family considering withdrawal/comfort care. Palliative care following. covering this weekend please call him if any change in plan or condition. to resume care on 06/08/2018.
[2018-06-04] MEDS: Vasopressin Inj 40 UNIT in Sodium Chlor 0.9% Inj 98 ML IV.CONT SCH (12:45)
[2018-06-04] MEDS: Sodium Bicarbonate 8.4% Inj 150 MEQ in Dextrose 5% in Water Inj 850 ML IV.CONT SCH ×4 (12:45→22:44)
[2018-06-04] MEDS: Chlorhexidine 0.12% Oral Kit 15 ML UDC OROPHARYNG SCH ×4 (12:47→22:47)
[2018-06-04] MEDS: Heparin - SQ 10,000 UNITS/ML Vial SQ SCH (12:47)
[2018-06-04] MEDS: Senna/Docusate Sodium 8.6/50 MG Tablet PO SCH ×2 (12:48→22:47)
--- NOTE | 2018-06-04 14:01 | P.CONPAL ---
Consult Service: Palliative Care Requesting Physician: Mehdi Giron Reason for Consult: a. To assist with evaluation and management of symptoms including:dyspnea , pain b. To assist medical decision maker(s) with: better understanding of current medical conditions; weighing benefits/burdens of medical treatment options; making medical treatment decisions. Primary Care Provider: Sergio Tinsley History of Present Illness History of Present Illness: This 82-year-old female presented on 06/02/18 via EMS for altered mental status. Patient family reported that she started having a fever and lethargy the day prior. She also began to have difficulty breathing the prior evening. She has known history of COPD, Parkinson's. She became disoriented, increasingly so morning of presentation, so they called EMS. Family reports no cough or congestion. No nausea, vomiting diarrhea or urinary complaints. Family does report she may have been around other family members who were ill. * CXR= right basilar opacity representing either acute airspace disease or parenchymal mass. Calcified ascending thoracic aorta. Dorsal column stimulator. CT brain negative for acute process, notable for advanced cerebral white matter disease chronic microvascular ischemic changes. UA positive probable UTI. WBC 7.4. CBC otherwise unremarkable. BUN 16/creatinine 0.95. GFR 61. Troponin less than 0.02. TSH 5.79. She was admitted for further evaluation and management of sepsis. She was started on Vanco, Zosyn, Rocephin. * CT chest= 1. Right basilar subpleural airspace disease and small effusion. 2. No suspicious pulmonary masses. 3. Distended fluid-filled fluid-filled esophagus 4. Status post right mastectomy. 5. Dorsal column stimulator. 6. A 4.5 cm density mass is identified within the left hepatic lobe. Absence of the right breast is noted * Attending notes discussion with family regarding CODE STATUS upon admission and full code was elected at that time. ST consulted; patient noted to have long-standing history of dysphasia and deficit secondary to underlying Parkinson 's disease. ST noted moderate oropharyngeal dysphasia, may be further worsened by altered mental status. Recommends pure solids with nectar thick liquids medications to be crushed in pures. Will require feeding assistance and only feeding when fully awake. * Later on 06/02 patient hypotensive. Central line was emergently placed and she was intubated for airway protection. She required norepinephrine drip. EEG brain ordered. Echocardiogram ordered. NG tube now to wall suction. Tumor markers, CEA CA19 9 pending. Hepatitis panel pending. Woods cultures pending. * Liver ultrasound 06/03=1. Bilateral echogenic kidneys consistent with medical renal disease. There is mild distention of the left collecting system.2. Complex cystic area seen in the left lobe of the liver. This is fairly benign features and is thought could be followed.3. Dilatation of the central intrahepatic biliary ducts. This may reflect a reservoir phenomenon following cholecystectomy. The common bile duct is not dilated. * 06/03 ID consulted= significant leukocytosis 30.9. Lactic acidosis 5.8. Creatinine increasing 2.26. AST ALT increasing. Hepatitis antigen negative. ? Biliary source of sepsis. Zosyn changed to meropenem. Follow cultures. * 06/03 nephrology consulted for renal failure, and anuria. Acute renal failure likely secondary to his shock. Will likely require dialytic intervention within the next 24-48 hours given progressing and the anuria and progressing azotemia. Check renal ultrasound. Avoid nephrotoxins. CT abdomen with no evidence of hydronephrosis. May require CVVHD. Some mottling. * Tumor marker AFP 8.8. CEA 1.7. CA 199 3.7. Tumor marker hCG less than 1. / /Urine 06/02+ Proteus mirabilis, blood culture 06/02+ gram-negative rods. * 06/04 venous ultrasound bilateral lower extremities for edema= no evidence of DVT. Palliative care consulted to assist with clarification of goals of treatment. Patient may require CVVHD. If goals aggressive patient may require LP to rule out meningitis secondary to spinal stimulator. Started on Teflaro IV for possible MRSA pneumonia per ID, sputum culture pending. WBC 25.2. Blood culture 06/03 no growth 1 day. Patient seen in room few family members at bedside. She is essentially nonresponsive to exam. Slight localization/movement of lower extremities to touch though does not open eyes or follow any commands. No apparent distress . On multiple pressors. Met with multiple family members at length following exam. Function/Cognitive Trajectory: Lives at home. Her daughter essentially lives with her to help provide the care she needs, and other family members take turns staying with her as needed, if not for this they indicate she would likely have needed facility placement. Cognitively sharp. over the past mos/year primarily w/c to bed/chair bound. Review of Systems unobtainable due to endotracheal tube, other (Limited ROSC per family) Constitutional: Reports fever(s) Respiratory: Reports shortness of breath Neurologic: Reports confusion, Reports other (Lethargy) [facility] - History History Provided By: Family Member - Medical History Medical History: Medical History (Last Reviewed 06/04/18 @ 07:57 by Julianna Khanna, PATHOLOGY LABORATORY DIRECTOR) COPD (chronic obstructive pulmonary disease) Dysphagia GERD (gastroesophageal reflux disease) Hearing deficit Hiatal hernia Hyperlipidemia Hypertension Parkinsons S/P ORIF (open reduction internal fixation) fracture Sleep apnea TIA (transient ischemic attack) - Surgical History Surgical History: Surgical History (Last Updated 06/03/18 @ 19:00 by RITIKA Adame) History of cholecystectomy History of cochlear implant History of total abdominal hysterectomy and bilateral salpingo-oophorectomy - Family History Family History: Family History (Last Updated 06/04/18 @ 16:55 by DAMIAN Krishna) Brother Renal disease CVA (cerebral vascular accident) - Tobacco History Second Hand Smoke Exposure: No Tobacco Use In Past 30 Days: No Smoking Status: Never smoker - Alcohol History How Often Do You Have a Drink Containing Alcohol: Never - Substance Use History Substance History: No History of Abuse, Unable to Obtain - Travel History History of Recent Travel: No Recent Travel in the [place] Within the Last 8 Weeks: No Recent Travel Out of the Country Within the Last 8 Weeks: No - Immunization History Tetanus Immunization: Unsure Hx Influenza Vaccine This Season: Unable to Assess Medications and Allergies Active Medications: Active Medications Acetaminophen (Tylenol Liq) 650 mg PO Q6H PRN PRN Reason: FEVER Last Admin: 06/03/18 15:45 Dose: 650 mg Albuterol (Albuterol Neb (Prn)) 2.5 mg NEB Q2HR NEB PRN PRN Reason: DYSPNEA Artificial Tears (Tears Naturale Opth Drops) 1 drop EACH EYE Q8H [facility] Last Admin: 06/04/18 12:46 Dose: Not Given Chlorhexidine Gluconate (Peridex 0.12% Oral Kit) 15 ml OROPHARYNG BID@799, 1999 [facility] Last Admin: 06/04/18 12:47 Dose: 15 ml Chlorhexidine Gluconate (Peridex 0.12% Oral Kit) 15 ml OROPHARYNG BID@799, 1999 [facility] Last Admin: 06/04/18 12:47 Dose: Not Given Dextrose (D50w Vial) 50 ml IV.PUSH UNSCH PRN PRN Reason: PER HYPOGLYCEMIA PROTOCOL Last Admin: 06/04/18 04:33 Dose: 50 ml Glucagon (Glucagon Inj) 1 mg OTHER PRN PRN PRN Reason: for Hypoglycemia Protocol Heparin Sodium (Porcine) (Heparin Inj) 5,000 units SQ Q12HR KLAUDIA Last Admin: 06/04/18 12:47 Dose: Not Given Norepinephrine Bitartrate 16 (mg/ Sodium Chloride) 250 mls @ 1.87 mls/hr IV.CONT TITRATE PRN; Protocol PRN Reason: See Protocol Last Admin: 06/04/18 03:12 Dose: 6 mcg/min, 5.62 mls/hr Propofol (Diprivan 1000 Mg/100 Ml Inj) 1,000 mg in 100 mls @ 2.041 mls/hr IV.CONT TITRATE PRN; Protocol PRN Reason: Per Protocol Fentanyl (Fentanyl 10 Mcg/Ml Premix Drip) 2,500 mcg in 250 mls @ 5 mls/hr IV.SIG TITRATE PRN; Protocol PRN Reason: Per Protocol Vasopressin 40 unit/ Sodium (Chloride) 100 mls @ 6 mls/hr IV.CONT CONT KLAUDIA; Protocol Last Admin: 06/04/18 12:45 Dose: 0.04 units/min, 6 mls/hr Magnesium Sulfate Inj 4 gm/ (Sodium Chloride) 100 mls @ 50 mls/hr IV.SIG UNSCH PRN PRN Reason: For Magnesium 0.9 - 1.1 mg/dL Magnesium Sulfate Inj 2 gm/ (Sodium Chloride) 100 mls @ 50 mls/hr IV.SIG UNSCH PRN PRN Reason: For Magnesium 1.2 - 1.6 mg/dL Potassium Chloride (Kcl 40 Meq Premix Inj) 40 meq in 100 mls @ 25 mls/hr IV.SIG Q2H PRN PRN Reason: For Potassium 2.8 - 3.2 mEq/L Potassium Chloride (Kcl 20 Meq Premix Inj) 20 meq in 100 mls @ 50 mls/hr IV.SIG Q2H PRN PRN Reason: For Potassium 3.3 - 3.5 mEq/L Last Admin: 06/04/18 05:38 Dose: 50 mls/hr Potassium Chloride (Kcl 40 Meq Premix Inj) 40 meq in 100 mls @ 25 mls/hr IV.SIG UNSCH PRN PRN Reason: For Potassium 3.3 - 3.5 mEq/L Potassium Chloride (Kcl 20 Meq Premix Inj) 20 meq in 100 mls @ 50 mls/hr IV.SIG Q2H PRN PRN Reason: For Potassium 2.8 - 3.2 mEq/L Potassium Phosphate 30 mmol/ (Sodium Chloride) 260 mls @ 42 mls/hr IV.SIG UNSCH PRN PRN Reason: SEE LABEL COMMENTS Sodium Phosphate 30 mmol/ (Sodium Chloride) 260 mls @ 42 mls/hr IV.SIG UNSCH PRN PRN Reason: For Phosphorus < 2.5 mg/dL Sodium Bicarbonate 150 meq/ (Dextrose) 1,000 mls @ 100 mls/hr IV.CONT .Q10H [facility] Last Admin: 06/04/18 12:45 Dose: 100 mls/hr Ceftaroline Fosamil 600 mg/ (Sodium Chloride) 100 mls @ 100 mls/hr IV.SIG Q8H [facility] Last Admin: 06/04/18 12:45 Dose: 100 mls/hr Meropenem 500 mg/ Sodium (Chloride) 100 mls @ 200 mls/hr IV.SIG Q12H KLAUDIA Insulin Aspart (Novolog Insulin Suppl Scale Inj) 0 unit SQ Q4HR [facility]; Protocol Last Admin: 06/04/18 12:46 Dose: Not Given Lactulose (Lactulose Liq) 30 ml PO DAILY [facility] Last Admin: 06/04/18 12:47 Dose: Not Given Lansoprazole (Prevacid Solutab) 30 mg NG/OG DAILY [facility] Last Admin: 06/04/18 12:48 Dose: 30 mg Magnesium Oxide (Mag-Ox) 800 mg PO UNSCH PRN PRN Reason: For Magnesium 1.2 - 1.6 mg/dL Potassium Bicarb/Potassium Chloride (K-Lyte Cl Eff) 50 meq PO UNSCH PRN PRN Reason: For Potassium 3.3 - 3.5 mEq/L Potassium Phosphate (K-Phos Original) 2,000 mg PO Q4H PRN PRN Reason: Phosphorus Less Than 2.5 mg/dL Potassium Phosphate (K-Phos Original) 2,000 mg PO UNSCH PRN PRN Reason: SEE LABEL COMMENTS Senna/Docusate Sodium (Akiko-Colace) 1 tab PO BID [facility] Last Admin: 06/04/18 12:48 Dose: Not Given Sodium Chloride (Ns Flush) 2 ml IV.FLUSH PRN PRN PRN Reason: FLUSH AFTER USING IV ACCESS Last Admin: 06/03/18 09:00 Dose: 2 ml Terbutaline Sulfate (Brethine Inj) 1 mg SQ UNSCH PRN PRN Reason: For Extravasation Allergies Allergy/AdvReac Type Severity Reaction Status Date / Time carbidopa Allergy Lethargy Verified 06/02/18 08:57 duloxetine [From Cymbalta] Allergy Nausea Verified 06/02/18 08:57 levodopa [From Sinemet] AdvReac Lethargy Verified 06/02/18 08:57 Home Medications Medication Instructions Recorded Confirmed Type albuterol sulfate 2.5 mg INHALATION Q4H PRN 06/02/18 06/02/18 History amlodipine 5 mg PO DAILY 06/02/18 06/02/18 History calcium carbonate-vitamin D3 1 tab PO DAILY 06/02/18 06/02/18 History [Calcium 600 + D(3)] docusate sodium [Colace] 100 mg PO BID 06/02/18 06/02/18 History escitalopram oxalate 10 mg PO DAILY 06/02/18 06/02/18 History gabapentin 600 mg PO QID 06/02/18 06/02/18 History hyoscyamine sulfate [Levsin] 0.25 mg PO QID PRN 06/02/18 06/02/18 History ipratropium-albuterol 3 ml INHALATION QID PRN 06/02/18 06/02/18 History megestrol 40 mg PO BID PRN 06/02/18 06/02/18 History omeprazole 20 mg PO DAILY 06/02/18 06/02/18 History Advance Directives Ethical and Legal Issues: Patient due to clinical condition is unable to participate in decision-making. Does not appear she will regain ability to participate. . She is supported by 6 adult children whom are all working together in decision-making. They think she may have healthcare surrogate designation naming 1 of the daughters though they cannot locate it at this time, and indicate they are all working together. Physical Exam Vital Signs: Vital Signs - 24 hr 06/03/18 14:00 06/03/18 14:25 06/03/18 16:00 Temperature Pulse Rate 115 H 109 H Respiratory Rate 27 H 25 H Blood Pressure 114/55 L Pulse Oximetry 97 100 06/03/18 18:00 06/03/18 18:07 06/03/18 20:00 Temperature 99.0 F Pulse Rate 103 H 103 H 103 H Respiratory Rate 23 25 H Blood Pressure 134/50 L Pulse Oximetry 100 100 06/03/18 20:16 06/03/18 22:00 06/04/18 00:00 Temperature 98.1 F Pulse Rate 105 H 101 H Respiratory Rate 25 H 24 Blood Pressure 126/56 L Pulse Oximetry 100 100 06/04/18 01:22 06/04/18 02:00 06/04/18 04:00 Temperature 99.5 F Pulse Rate 101 H 101 H Respiratory Rate 23 24 Blood Pressure 126/53 L Pulse Oximetry 100 100 06/04/18 04:12 06/04/18 06:00 06/04/18 07:32 Temperature Pulse Rate 101 H 97 H Respiratory Rate 23 Blood Pressure Pulse Oximetry 100 06/04/18 07:50 06/04/18 08:00 06/04/18 08:59 Temperature 98.9 F Pulse Rate 97 H Respiratory Rate 26 H 24 Blood Pressure 138/64 Pulse Oximetry 100 100 100 06/04/18 09:00 06/04/18 10:00 06/04/18 11:40 Temperature Pulse Rate 96 H 124 H Respiratory Rate 22 Blood Pressure Pulse Oximetry 100 I&O: Intake & Output 06/02/18 06/03/18 06/04/18 06/05/18 06:59 06:59 06:59 06:59 Intake Total 712 / 712 3650 / 3650 100 / 100 Output Total 75 / 75 295 / 295 Balance 637 / 637 3355 / 3355 100 / 100 Weight 68.039 kg 70.2 kg Physical Exam: CONSTITUTIONAL/GENERAL: This is an adequately nourished patient, on mechanical vent no apparent distress TUBES/LINES/DRAINS: Central line IJ, arterial line radial, multiple peripheral IVs to upper extremities, English catheter, ET tube, OG tube SKIN: No jaundice, rashes, or lesions. Multiple areas confluent ecchymotic patterns to bilateral thighs, upper arms ? Thrombotic. Skin to extremities cool, dry. HEAD: Atraumatic. Normocephalic. EYES: No eye opening to exam. No injection or drainage. Fundi not examined. ENT: Nose without bleeding or purulent drainage. Throat without visible erythema , exudates, masses, or lesions. NECK: Trachea midline. Supple, nontender. No palpable thyroid enlargement or nodularity. CARDIOVASCULAR: Regular rate and rhythm . No murmur . no JVD. Peripheral pulses faint/weak. RESPIRATORY/CHEST: Symmetric, unlabored respirations. On mechanical vent. Spontaneous respirations 2 over mechanical vent rate 20. Clear to auscultation. Breath sounds equal bilaterally. GASTROINTESTINAL: Abdomen soft, no apparent tenderness. nondistended. No hepato -splenomegaly. Small 2-3 cm palpable device right abdomen/flank implanted device, bowel sounds intermittent. OG tube clamped. GENITOURINARY: Without palpable bladder distension. English catheter in place-no urine present MUSCULOSKELETAL: Extremities without clubbing, cyanosis, or edema. No joint tenderness or effusion noted. Extremities are cool.Multiple areas confluent ecchymotic patterns to bilateral thighs, upper arms ? Thrombotic. LYMPHATICS: No palpable cervical or supraclavicular adenopathy. NEUROLOGICAL: Minimally responsive on mechanical vent. Does not open eyes. Slight localization and movement of feet to touch. No movement of upper extremities. PSYCHIATRIC: No obvious anxiety/depression. Limited assessment due to clinical condition/minimally responsive Diagnostic Tests Laboratory: Laboratory Results - last 72 hr 06/02/18 06/02/18 06/02/18 08:20 08:20 08:20 WBC 7.4 RBC 4.36 Hgb 12.0 Hct 37.6 MCV 86.2 MCH 27.5 MCHC 31.9 L RDW 16.5 Plt Count 149 L MPV 9.7 Prelim Diff (Auto) Slide review pending Neut % (Auto) 91.2 H Lymph % (Auto) 7.8 L [place] % (Auto) 0.5 Eos % (Auto) 0.3 Baso % (Auto) 0.2 Neut # (Auto) 6.8 Lymph # (Auto) 0.6 L [place] # (Auto) 0.0 Eos # (Auto) 0.0 Baso # (Auto) 0.0 WBC Differential . Diff Scan Auto diff confirmed Seg Neuts % (Manual) Band Neuts % (Manual) Lymphocytes % (Manual) Monocytes % (Manual) Eosinophils % (Manual) Basophils % (Manual) Abs Neuts (Manual) Differential Comment . Toxic Vacuolation Present H Dohle Bodies Platelet Estimate Low L Platelet Morphology Normal Ovalocytes 1+ H Acanthocytes (Spur) 2+ H PT 13.6 H INR 1.3 APTT 28.9 Fibrinogen Puncture Site Patient Temperature O2 Saturation ABG pH ABG pCO2 ABG pO2 ABG HCO3 ABG O2 Content ABG Base Excess ABG Methemoglobin Marvin Test Hemoglobin Carboxyhemoglobin O2 Delivery Device Vent Setting Inspired O2 Critical Value Sodium 146 H Potassium 3.6 Chloride 113 H Carbon Dioxide 17.0 L Anion Gap 16 H BUN 16 Creatinine 0.95 Estimated GFR 61 L POC Glucose Random Glucose 75 Lactic Acid Uric Acid Calcium 8.6 Prot Corrected Calcium Phosphorus Magnesium Iron TIBC % Saturation Ferritin Total Bilirubin 0.9 AST 16 ALT 9 L Alkaline Phosphatase 118 H Ammonia Lactate Dehydrogenase Total Creatine Kinase 75 CK-MB (CK-2) CK-MB (CK-2) % Troponin I Less than 0.02 L Total Protein 6.2 L Total Protein (PEP) Albumin 2.5 L Tumor Marker AFP Carcinoembryonic Ag CA 19-9 Antigen Tumor Marker HCG Vitamin D 25-Hydroxy TSH 5.790 H Free T4 Free T3 PTH Intact Cortisol Urine Color Urine Clarity Urine pH Ur Specific [place] Urine Protein Urine Glucose (UA) Urine Ketones Urine Occult Blood Urine Nitrate Urine Bilirubin Urine Urobilinogen Ur Leukocyte Esterase Urine RBC Urine WBC Ur Squamous Epith Cells Urine Bacteria Urine Mucus Micro UA Comment Urine Culture Comments Urine Eosinophils Ur Random Creatinine Ur Random Sodium Nasal Screen MRSA (PCR) IgG IgA IgM Lindrith/Lambda Ratio Lindrith Light Chain Anal Lambda Light Chain Anal Hepatitis A IgM Ab Hep Bs Antigen Hep B Core IgM Ab Hep C IgG Ab 06/02/18 06/02/18 06/02/18 09:00 09:00 09:00 WBC RBC Hgb Hct MCV MCH MCHC RDW Plt Count MPV Prelim Diff (Auto) Neut % (Auto) Lymph % (Auto) [place] % (Auto) Eos % (Auto) Baso % (Auto) Neut # (Auto) Lymph # (Auto) [place] # (Auto) Eos # (Auto) Baso # (Auto) WBC Differential Diff Scan Seg Neuts % (Manual) Band Neuts % (Manual) Lymphocytes % (Manual) Monocytes % (Manual) Eosinophils % (Manual) Basophils % (Manual) Abs Neuts (Manual) Differential Comment Toxic Vacuolation Dohle Bodies Platelet Estimate Platelet Morphology Ovalocytes Acanthocytes (Spur) PT INR APTT Fibrinogen Puncture Site Patient Temperature O2 Saturation ABG pH ABG pCO2 ABG pO2 ABG HCO3 ABG O2 Content ABG Base Excess ABG Methemoglobin Marvin Test Hemoglobin Carboxyhemoglobin O2 Delivery Device Vent Setting Inspired O2 Critical Value Sodium Potassium Chloride Carbon Dioxide Anion Gap BUN Creatinine Estimated GFR POC Glucose Random Glucose Lactic Acid 6.3 H* Uric Acid Calcium Prot Corrected Calcium Phosphorus Magnesium Iron TIBC % Saturation Ferritin Total Bilirubin AST ALT Alkaline Phosphatase Ammonia 59 H Lactate Dehydrogenase Total Creatine Kinase CK-MB (CK-2) CK-MB (CK-2) % Troponin I Total Protein Total Protein (PEP) Albumin Tumor Marker AFP Carcinoembryonic Ag CA 19-9 Antigen Tumor Marker HCG Vitamin D 25-Hydroxy TSH Free T4 Free T3 PTH Intact Cortisol Urine Color Yellow Urine Clarity Hazy H Urine pH 8.0 Ur Specific [place] 1.010 Urine Protein Negative Urine Glucose (UA) Negative Urine Ketones Negative Urine Occult Blood Moderate H Urine Nitrate Positive H Urine Bilirubin Negative Urine Urobilinogen Less than 2 Ur Leukocyte Esterase Moderate H Urine RBC 1 Urine WBC 14 H Ur Squamous Epith Cells 2 Urine Bacteria Many H Urine Mucus Few H Micro UA Comment Cath-culture ind Urine Culture Comments Cath-cult indicated Urine Eosinophils Ur Random Creatinine Ur Random Sodium Nasal Screen MRSA (PCR) IgG IgA IgM Lindrith/Lambda Ratio Lindrith Light Chain Anal Lambda Light Chain Anal Hepatitis A IgM Ab Hep Bs Antigen Hep B Core IgM Ab Hep C IgG Ab 06/02/18 06/02/18 06/02/18 12:52 16:00 21:06 WBC RBC Hgb Hct MCV MCH MCHC RDW Plt Count MPV Prelim Diff (Auto) Neut % (Auto) Lymph % (Auto) [place] % (Auto) Eos % (Auto) Baso % (Auto) Neut # (Auto) Lymph # (Auto) [place] # (Auto) Eos # (Auto) Baso # (Auto) WBC Differential Diff Scan Seg Neuts % (Manual) Band Neuts % (Manual) Lymphocytes % (Manual) Monocytes % (Manual) Eosinophils % (Manual) Basophils % (Manual) Abs Neuts (Manual) Differential Comment Toxic Vacuolation Dohle Bodies Platelet Estimate Platelet Morphology Ovalocytes Acanthocytes (Spur) PT INR APTT Fibrinogen Puncture Site Patient Temperature O2 Saturation ABG pH ABG pCO2 ABG pO2 ABG HCO3 ABG O2 Content ABG Base Excess ABG Methemoglobin Marvin Test Hemoglobin Carboxyhemoglobin O2 Delivery Device Vent Setting Inspired O2 Critical Value Sodium Potassium Chloride Carbon Dioxide Anion Gap BUN Creatinine Estimated GFR POC Glucose 33 L* Random Glucose Lactic Acid 5.8 H* Uric Acid Calcium Prot Corrected Calcium Phosphorus Magnesium Iron TIBC % Saturation Ferritin Total Bilirubin AST ALT Alkaline Phosphatase Ammonia Lactate Dehydrogenase Total Creatine Kinase CK-MB (CK-2) CK-MB (CK-2) % Troponin I Total Protein Total Protein (PEP) Albumin Tumor Marker AFP Carcinoembryonic Ag CA 19-9 Antigen Tumor Marker HCG Vitamin D 25-Hydroxy TSH Free T4 Free T3 PTH Intact Cortisol Urine Color Urine Clarity Urine pH Ur Specific [place] Urine Protein Urine Glucose (UA) Urine Ketones Urine Occult Blood Urine Nitrate Urine Bilirubin Urine Urobilinogen Ur Leukocyte Esterase Urine RBC Urine WBC Ur Squamous Epith Cells Urine Bacteria Urine Mucus Micro UA Comment Urine Culture Comments Urine Eosinophils Ur Random Creatinine Ur Random Sodium Nasal Screen MRSA (PCR) Not detected IgG IgA IgM Lindrith/Lambda Ratio Lindrith Light Chain Anal Lambda Light Chain Anal Hepatitis A IgM Ab Hep Bs Antigen Hep B Core IgM Ab Hep C IgG Ab 06/02/18 06/02/18 06/02/18 21:32 22:16 22:16 WBC RBC Hgb Hct MCV MCH MCHC RDW Plt Count MPV Prelim Diff (Auto) Neut % (Auto) Lymph % (Auto) [place] % (Auto) Eos % (Auto) Baso % (Auto) Neut # (Auto) Lymph # (Auto) [place] # (Auto) Eos # (Auto) Baso # (Auto) WBC Differential Diff Scan Seg Neuts % (Manual) Band Neuts % (Manual) Lymphocytes % (Manual) Monocytes % (Manual) Eosinophils % (Manual) Basophils % (Manual) Abs Neuts (Manual) Differential Comment Toxic Vacuolation Dohle Bodies Platelet Estimate Platelet Morphology Ovalocytes Acanthocytes (Spur) PT INR APTT Fibrinogen Puncture Site Patient Temperature O2 Saturation ABG pH ABG pCO2 ABG pO2 ABG HCO3 ABG O2 Content ABG Base Excess ABG Methemoglobin Marvin Test Hemoglobin Carboxyhemoglobin O2 Delivery Device Vent Setting Inspired O2 Critical Value Sodium 149 H Potassium 3.8 Chloride 116 H Carbon Dioxide 17.8 L Anion Gap 15 BUN 27 H Creatinine 2.26 H Estimated GFR 23 L POC Glucose 147 H Random Glucose 93 Lactic Acid 8.5 H* Uric Acid Calcium 7.8 L D Prot Corrected Calcium Phosphorus Magnesium Iron TIBC % Saturation Ferritin Total Bilirubin 0.8 AST 331 H ALT 61 H Alkaline Phosphatase 78 Ammonia Lactate Dehydrogenase Total Creatine Kinase CK-MB (CK-2) CK-MB (CK-2) % Troponin I Total Protein 5.0 L D Total Protein (PEP) Albumin 2.0 L Tumor Marker AFP Carcinoembryonic Ag CA 19-9 Antigen Tumor Marker HCG Vitamin D 25-Hydroxy TSH Free T4 Free T3 PTH Intact Cortisol Urine Color Urine Clarity Urine pH Ur Specific [place] Urine Protein Urine Glucose (UA) Urine Ketones Urine Occult Blood Urine Nitrate Urine Bilirubin Urine Urobilinogen Ur Leukocyte Esterase Urine RBC Urine WBC Ur Squamous Epith Cells Urine Bacteria Urine Mucus Micro UA Comment Urine Culture Comments Urine Eosinophils Ur Random Creatinine Ur Random Sodium Nasal Screen MRSA (PCR) IgG IgA IgM Lindrith/Lambda Ratio Lindrith Light Chain Anal Lambda Light Chain Anal Hepatitis A IgM Ab Hep Bs Antigen Hep B Core IgM Ab Hep C IgG Ab 06/02/18 06/02/18 06/02/18 22:16 22:32 23:41 WBC RBC Hgb Hct MCV MCH MCHC RDW Plt Count MPV Prelim Diff (Auto) Neut % (Auto) Lymph % (Auto) [place] % (Auto) Eos % (Auto) Baso % (Auto) Neut # (Auto) Lymph # (Auto) [place] # (Auto) Eos # (Auto) Baso # (Auto) WBC Differential Diff Scan Seg Neuts % (Manual) Band Neuts % (Manual) Lymphocytes % (Manual) Monocytes % (Manual) Eosinophils % (Manual) Basophils % (Manual) Abs Neuts (Manual) Differential Comment Toxic Vacuolation Dohle Bodies Platelet Estimate Platelet Morphology Ovalocytes Acanthocytes (Spur) PT INR APTT Fibrinogen Puncture Site Left radial Patient Temperature 98.6 O2 Saturation 97 ABG pH 7.22 L* ABG pCO2 33 L ABG pO2 321 H ABG HCO3 13 L* ABG O2 Content 14.5 ABG Base Excess -13.1 L ABG Methemoglobin 1.5 Marvin Test Present Hemoglobin 10.0 L Carboxyhemoglobin 0.4 O2 Delivery Device Vent Vent Setting Prvc/ac Inspired O2 100 Critical Value Yes Sodium Potassium Chloride Carbon Dioxide Anion Gap BUN Creatinine Estimated GFR POC Glucose 91 Random Glucose Lactic Acid Uric Acid Calcium Prot Corrected Calcium Phosphorus Magnesium Iron TIBC % Saturation Ferritin Total Bilirubin AST ALT Alkaline Phosphatase Ammonia 12 Lactate Dehydrogenase Total Creatine Kinase CK-MB (CK-2) CK-MB (CK-2) % Troponin I Total Protein Total Protein (PEP) Albumin Tumor Marker AFP Carcinoembryonic Ag CA 19-9 Antigen Tumor Marker HCG Vitamin D 25-Hydroxy TSH Free T4 Free T3 PTH Intact Cortisol Urine Color Urine Clarity Urine pH Ur Specific [place] Urine Protein Urine Glucose (UA) Urine Ketones Urine Occult Blood Urine Nitrate Urine Bilirubin Urine Urobilinogen Ur Leukocyte Esterase Urine RBC Urine WBC Ur Squamous Epith Cells Urine Bacteria Urine Mucus Micro UA Comment Urine Culture Comments Urine Eosinophils Ur Random Creatinine Ur Random Sodium Nasal Screen MRSA (PCR) IgG IgA IgM Lindrith/Lambda Ratio Lindrith Light Chain Anal Lambda Light Chain Anal Hepatitis A IgM Ab Hep Bs Antigen Hep B Core IgM Ab Hep C IgG Ab 06/02/18 06/03/18 06/03/18 23:47 01:45 03:30 WBC 30.9 H D RBC 3.53 L Hgb 9.5 L D Hct 30.4 L MCV 86.0 MCH 26.9 L MCHC 31.3 L RDW 17.5 H Plt Count 61 L D MPV 8.9 Prelim Diff (Auto) Slide review pending Neut % (Auto) Lymph % (Auto) [place] % (Auto) Eos % (Auto) Baso % (Auto) Neut # (Auto) Lymph # (Auto) [place] # (Auto) Eos # (Auto) Baso # (Auto) WBC Differential Manual diff final Diff Scan Seg Neuts % (Manual) 59 Band Neuts % (Manual) 34 H Lymphocytes % (Manual) 4 L Monocytes % (Manual) 2 Eosinophils % (Manual) Basophils % (Manual) 1 Abs Neuts (Manual) 28.7 H Differential Comment . Toxic Vacuolation Dohle Bodies Platelet Estimate Low L Platelet Morphology Normal Ovalocytes 2+ H Acanthocytes (Spur) PT INR APTT Fibrinogen Puncture Site Patient Temperature O2 Saturation ABG pH ABG pCO2 ABG pO2 ABG HCO3 ABG O2 Content ABG Base Excess ABG Methemoglobin Marvin Test Hemoglobin Carboxyhemoglobin O2 Delivery Device Vent Setting Inspired O2 Critical Value Sodium Potassium Chloride Carbon Dioxide Anion Gap BUN Creatinine Estimated GFR POC Glucose 137 H 85 Random Glucose Lactic Acid Uric Acid Calcium Prot Corrected Calcium Phosphorus Magnesium Iron TIBC % Saturation Ferritin Total Bilirubin AST ALT Alkaline Phosphatase Ammonia Lactate Dehydrogenase Total Creatine Kinase CK-MB (CK-2) CK-MB (CK-2) % Troponin I Total Protein Total Protein (PEP) Albumin Tumor Marker AFP Carcinoembryonic Ag CA 19-9 Antigen Tumor Marker HCG Vitamin D 25-Hydroxy TSH Free T4 Free T3 PTH Intact Cortisol Urine Color Urine Clarity Urine pH Ur Specific [place] Urine Protein Urine Glucose (UA) Urine Ketones Urine Occult Blood Urine Nitrate Urine Bilirubin Urine Urobilinogen Ur Leukocyte Esterase Urine RBC Urine WBC Ur Squamous Epith Cells Urine Bacteria Urine Mucus Micro UA Comment Urine Culture Comments Urine Eosinophils Ur Random Creatinine Ur Random Sodium Nasal Screen MRSA (PCR) IgG IgA IgM Lindrith/Lambda Ratio Lindrith Light Chain Anal Lambda Light Chain Anal Hepatitis A IgM Ab Hep Bs Antigen Hep B Core IgM Ab Hep C IgG Ab 06/03/18 06/03/18 06/03/18 03:30 03:30 03:30 WBC RBC Hgb Hct MCV MCH MCHC RDW Plt Count MPV Prelim Diff (Auto) Neut % (Auto) Lymph % (Auto) [place] % (Auto) Eos % (Auto) Baso % (Auto) Neut # (Auto) Lymph # (Auto) [place] # (Auto) Eos # (Auto) Baso # (Auto) WBC Differential Diff Scan Seg Neuts % (Manual) Band Neuts % (Manual) Lymphocytes % (Manual) Monocytes % (Manual) Eosinophils % (Manual) Basophils % (Manual) Abs Neuts (Manual) Differential Comment Toxic Vacuolation Dohle Bodies Platelet Estimate Platelet Morphology Ovalocytes Acanthocytes (Spur) PT INR APTT Fibrinogen Puncture Site Patient Temperature O2 Saturation ABG pH ABG pCO2 ABG pO2 ABG HCO3 ABG O2 Content ABG Base Excess ABG Methemoglobin Marvin Test Hemoglobin Carboxyhemoglobin O2 Delivery Device Vent Setting Inspired O2 Critical Value Sodium 146 H Potassium 3.5 Chloride 114 H Carbon Dioxide 18.4 L Anion Gap 14 BUN 27 H Creatinine 2.12 H Estimated GFR 24 L POC Glucose Random Glucose 78 Lactic Acid 6.1 H* Uric Acid Calcium 7.3 L* Prot Corrected Calcium 8.7 Phosphorus 2.8 Magnesium 1.4 L Iron TIBC % Saturation Ferritin Total Bilirubin 1.0 AST 515 H ALT 99 H Alkaline Phosphatase 68 Ammonia 20 Lactate Dehydrogenase Total Creatine Kinase 730 H CK-MB (CK-2) 14.7 H CK-MB (CK-2) % 2.0 Troponin I 0.26 H D Total Protein 4.6 L Total Protein (PEP) Albumin 1.8 L Tumor Marker AFP Carcinoembryonic Ag CA 19-9 Antigen Tumor Marker HCG Vitamin D 25-Hydroxy TSH 5.640 H Free T4 1.25 Free T3 1.32 L PTH Intact Cortisol Urine Color Urine Clarity Urine pH Ur Specific [place] Urine Protein Urine Glucose (UA) Urine Ketones Urine Occult Blood Urine Nitrate Urine Bilirubin Urine Urobilinogen Ur Leukocyte Esterase Urine RBC Urine WBC Ur Squamous Epith Cells Urine Bacteria Urine Mucus Micro UA Comment Urine Culture Comments Urine Eosinophils Ur Random Creatinine Ur Random Sodium Nasal Screen MRSA (PCR) IgG IgA IgM Lindrith/Lambda Ratio Lindrith Light Chain Anal Lambda Light Chain Anal Hepatitis A IgM Ab Hep Bs Antigen Hep B Core IgM Ab Hep C IgG Ab 06/03/18 06/03/18 06/03/18 03:30 03:30 03:30 WBC RBC Hgb Hct MCV MCH MCHC RDW Plt Count MPV Prelim Diff (Auto) Neut % (Auto) Lymph % (Auto) [place] % (Auto) Eos % (Auto) Baso % (Auto) Neut # (Auto) Lymph # (Auto) [place] # (Auto) Eos # (Auto) Baso # (Auto) WBC Differential Diff Scan Seg Neuts % (Manual) Band Neuts % (Manual) Lymphocytes % (Manual) Monocytes % (Manual) Eosinophils % (Manual) Basophils % (Manual) Abs Neuts (Manual) Differential Comment Toxic Vacuolation Dohle Bodies Platelet Estimate Platelet Morphology Ovalocytes Acanthocytes (Spur) PT INR APTT Fibrinogen Puncture Site Patient Temperature O2 Saturation ABG pH ABG pCO2 ABG pO2 ABG HCO3 ABG O2 Content ABG Base Excess ABG Methemoglobin Marvin Test Hemoglobin Carboxyhemoglobin O2 Delivery Device Vent Setting Inspired O2 Critical Value Sodium Potassium Chloride Carbon Dioxide Anion Gap BUN Creatinine Estimated GFR POC Glucose Random Glucose Lactic Acid Uric Acid Calcium Prot Corrected Calcium Phosphorus Magnesium Iron TIBC % Saturation Ferritin Total Bilirubin AST ALT Alkaline Phosphatase Ammonia Lactate Dehydrogenase 2396 H Total Creatine Kinase CK-MB (CK-2) CK-MB (CK-2) % Troponin I Total Protein Total Protein (PEP) Albumin Tumor Marker AFP 8.8 H Carcinoembryonic Ag 1.7 CA 19-9 Antigen 3.7 Tumor Marker HCG Less than 1 Vitamin D 25-Hydroxy TSH Free T4 Free T3 PTH Intact Cortisol 12.8 Urine Color Urine Clarity Urine pH Ur Specific [place] Urine Protein Urine Glucose (UA) Urine Ketones Urine Occult Blood Urine Nitrate Urine Bilirubin Urine Urobilinogen Ur Leukocyte Esterase Urine RBC Urine WBC Ur Squamous Epith Cells Urine Bacteria Urine Mucus Micro UA Comment Urine Culture Comments Urine Eosinophils Ur Random Creatinine Ur Random Sodium Nasal Screen MRSA (PCR) IgG IgA IgM Lindrith/Lambda Ratio Lindrith Light Chain Anal Lambda Light Chain Anal Hepatitis A IgM Ab Hep Bs Antigen Hep B Core IgM Ab Hep C IgG Ab 06/03/18 06/03/18 06/03/18 03:30 03:30 04:03 WBC RBC Hgb Hct MCV MCH MCHC RDW Plt Count MPV Prelim Diff (Auto) Neut % (Auto) Lymph % (Auto) [place] % (Auto) Eos % (Auto) Baso % (Auto) Neut # (Auto) Lymph # (Auto) [place] # (Auto) Eos # (Auto) Baso # (Auto) WBC Differential Diff Scan Seg Neuts % (Manual) Band Neuts % (Manual) Lymphocytes % (Manual) Monocytes % (Manual) Eosinophils % (Manual) Basophils % (Manual) Abs Neuts (Manual) Differential Comment Toxic Vacuolation Dohle Bodies Platelet Estimate Platelet Morphology Ovalocytes Acanthocytes (Spur) PT INR APTT Fibrinogen Puncture Site Patient Temperature O2 Saturation ABG pH ABG pCO2 ABG pO2 ABG HCO3 ABG O2 Content ABG Base Excess ABG Methemoglobin Marvin Test Hemoglobin Carboxyhemoglobin O2 Delivery Device Vent Setting Inspired O2 Critical Value Sodium Potassium Chloride Carbon Dioxide Anion Gap BUN Creatinine Estimated GFR POC Glucose 94 Random Glucose Lactic Acid Uric Acid 3.6 Calcium Prot Corrected Calcium Phosphorus Magnesium Iron TIBC % Saturation Ferritin Total Bilirubin AST ALT Alkaline Phosphatase Ammonia Lactate Dehydrogenase Total Creatine Kinase CK-MB (CK-2) CK-MB (CK-2) % Troponin I Total Protein Total Protein (PEP) Albumin Tumor Marker AFP Carcinoembryonic Ag CA 19-9 Antigen Tumor Marker HCG Vitamin D 25-Hydroxy TSH Free T4 Free T3 PTH Intact Cortisol Urine Color Urine Clarity Urine pH Ur Specific [place] Urine Protein Urine Glucose (UA) Urine Ketones Urine Occult Blood Urine Nitrate Urine Bilirubin Urine Urobilinogen Ur Leukocyte Esterase Urine RBC Urine WBC Ur Squamous Epith Cells Urine Bacteria Urine Mucus Micro UA Comment Urine Culture Comments Urine Eosinophils Ur Random Creatinine Ur Random Sodium Nasal Screen MRSA (PCR) IgG IgA IgM Lindrith/Lambda Ratio Lindrith Light Chain Anal Lambda Light Chain Anal Hepatitis A IgM Ab Nonreactive Hep Bs Antigen Nonreactive Hep B Core IgM Ab Nonreactive Hep C IgG Ab Nonreactive 06/03/18 06/03/18 06/03/18 05:26 09:20 14:14 WBC RBC Hgb Hct MCV MCH MCHC RDW Plt Count MPV Prelim Diff (Auto) Neut % (Auto) Lymph % (Auto) [place] % (Auto) Eos % (Auto) Baso % (Auto) Neut # (Auto) Lymph # (Auto) [place] # (Auto) Eos # (Auto) Baso # (Auto) WBC Differential Diff Scan Seg Neuts % (Manual) Band Neuts % (Manual) Lymphocytes % (Manual) Monocytes % (Manual) Eosinophils % (Manual) Basophils % (Manual) Abs Neuts (Manual) Differential Comment Toxic Vacuolation Dohle Bodies Platelet Estimate Platelet Morphology Ovalocytes Acanthocytes (Spur) PT INR APTT Fibrinogen Puncture Site Right brachial Patient Temperature 98.6 O2 Saturation 97 ABG pH 7.37 L ABG pCO2 26 L ABG pO2 197 H ABG HCO3 15 L* ABG O2 Content 13.7 ABG Base Excess -9.8 L ABG Methemoglobin 1.5 Marvin Test Hemoglobin 9.7 L Carboxyhemoglobin 0.6 O2 Delivery Device Vent Vent Setting Prvc/ac Inspired O2 60 Critical Value Yes Sodium Potassium Chloride Carbon Dioxide Anion Gap BUN Creatinine Estimated GFR POC Glucose 108 80 Random Glucose Lactic Acid Uric Acid Calcium Prot Corrected Calcium Phosphorus Magnesium Iron TIBC % Saturation Ferritin Total Bilirubin AST ALT Alkaline Phosphatase Ammonia Lactate Dehydrogenase Total Creatine Kinase CK-MB (CK-2) CK-MB (CK-2) % Troponin I Total Protein Total Protein (PEP) Albumin Tumor Marker AFP Carcinoembryonic Ag CA 19-9 Antigen Tumor Marker HCG Vitamin D 25-Hydroxy TSH Free T4 Free T3 PTH Intact Cortisol Urine Color Urine Clarity Urine pH Ur Specific [place] Urine Protein Urine Glucose (UA) Urine Ketones Urine Occult Blood Urine Nitrate Urine Bilirubin Urine Urobilinogen Ur Leukocyte Esterase Urine RBC Urine WBC Ur Squamous Epith Cells Urine Bacteria Urine Mucus Micro UA Comment Urine Culture Comments Urine Eosinophils Ur Random Creatinine Ur Random Sodium Nasal Screen MRSA (PCR) IgG IgA IgM Lindrith/Lambda Ratio Lindrith Light Chain Anal Lambda Light Chain Anal Hepatitis A IgM Ab Hep Bs Antigen Hep B Core IgM Ab Hep C IgG Ab 06/03/18 06/03/18 06/03/18 17:00 17:00 17:00 WBC 27.7 H RBC 3.63 L Hgb 9.8 L Hct 31.1 L MCV 85.6 MCH 27.1 MCHC 31.7 L RDW 16.9 Plt Count 43 L MPV 10.1 Prelim Diff (Auto) Neut % (Auto) Lymph % (Auto) [place] % (Auto) Eos % (Auto) Baso % (Auto) Neut # (Auto) Lymph # (Auto) [place] # (Auto) Eos # (Auto) Baso # (Auto) WBC Differential Diff Scan Seg Neuts % (Manual) Band Neuts % (Manual) Lymphocytes % (Manual) Monocytes % (Manual) Eosinophils % (Manual) Basophils % (Manual) Abs Neuts (Manual) Differential Comment Toxic Vacuolation Dohle Bodies Platelet Estimate Platelet Morphology Ovalocytes Acanthocytes (Spur) PT INR APTT Fibrinogen Puncture Site Patient Temperature O2 Saturation ABG pH ABG pCO2 ABG pO2 ABG HCO3 ABG O2 Content ABG Base Excess ABG Methemoglobin Marvin Test Hemoglobin Carboxyhemoglobin O2 Delivery Device Vent Setting Inspired O2 Critical Value Sodium 143 Potassium 3.5 Chloride 111 H Carbon Dioxide 14.8 L Anion Gap 17 H BUN 30 H Creatinine 2.65 H Estimated GFR 21 L POC Glucose Random Glucose 66 L Lactic Acid 5.9 H* Uric Acid Calcium 6.6 L* Prot Corrected Calcium 7.8 L D Phosphorus Magnesium Iron TIBC % Saturation Ferritin Total Bilirubin 1.1 H AST 457 H ALT 119 H Alkaline Phosphatase 77 Ammonia Lactate Dehydrogenase Total Creatine Kinase CK-MB (CK-2) CK-MB (CK-2) % Troponin I Total Protein 4.7 L Total Protein (PEP) Albumin 1.8 L Tumor Marker AFP Carcinoembryonic Ag CA 19-9 Antigen Tumor Marker HCG Vitamin D 25-Hydroxy TSH Free T4 Free T3 PTH Intact Cortisol Urine Color Urine Clarity Urine pH Ur Specific [place] Urine Protein Urine Glucose (UA) Urine Ketones Urine Occult Blood Urine Nitrate Urine Bilirubin Urine Urobilinogen Ur Leukocyte Esterase Urine RBC Urine WBC Ur Squamous Epith Cells Urine Bacteria Urine Mucus Micro UA Comment Urine Culture Comments Urine Eosinophils Ur Random Creatinine Ur Random Sodium Nasal Screen MRSA (PCR) IgG IgA IgM Lindrith/Lambda Ratio Lindrith Light Chain Anal Lambda Light Chain Anal Hepatitis A IgM Ab Hep Bs Antigen Hep B Core IgM Ab Hep C IgG Ab 06/03/18 06/03/18 06/03/18 17:00 19:27 20:00 WBC RBC Hgb Hct MCV MCH MCHC RDW Plt Count MPV Prelim Diff (Auto) Neut % (Auto) Lymph % (Auto) [place] % (Auto) Eos % (Auto) Baso % (Auto) Neut # (Auto) Lymph # (Auto) [place] # (Auto) Eos # (Auto) Baso # (Auto) WBC Differential Diff Scan Seg Neuts % (Manual) Band Neuts % (Manual) Lymphocytes % (Manual) Monocytes % (Manual) Eosinophils % (Manual) Basophils % (Manual) Abs Neuts (Manual) Differential Comment Toxic Vacuolation Dohle Bodies Platelet Estimate Platelet Morphology Ovalocytes Acanthocytes (Spur) PT INR APTT Fibrinogen Puncture Site Patient Temperature O2 Saturation ABG pH ABG pCO2 ABG pO2 ABG HCO3 ABG O2 Content ABG Base Excess ABG Methemoglobin Marvin Test Hemoglobin Carboxyhemoglobin O2 Delivery Device Vent Setting Inspired O2 Critical Value Sodium Potassium Chloride Carbon Dioxide Anion Gap BUN Creatinine Estimated GFR POC Glucose 50 L 136 H Random Glucose Lactic Acid Uric Acid Calcium Prot Corrected Calcium Phosphorus Magnesium Iron TIBC % Saturation Ferritin Total Bilirubin AST ALT Alkaline Phosphatase Ammonia Lactate Dehydrogenase Total Creatine Kinase 2524 H CK-MB (CK-2) 43.7 H CK-MB (CK-2) % 1.7 Troponin I Total Protein Total Protein (PEP) Albumin Tumor Marker AFP Carcinoembryonic Ag CA 19-9 Antigen Tumor Marker HCG Vitamin D 25-Hydroxy TSH Free T4 Free T3 PTH Intact Cortisol Urine Color Urine Clarity Urine pH Ur Specific [place] Urine Protein Urine Glucose (UA) Urine Ketones Urine Occult Blood Urine Nitrate Urine Bilirubin Urine Urobilinogen Ur Leukocyte Esterase Urine RBC Urine WBC Ur Squamous Epith Cells Urine Bacteria Urine Mucus Micro UA Comment Urine Culture Comments Urine Eosinophils Ur Random Creatinine Ur Random Sodium Nasal Screen MRSA (PCR) IgG IgA IgM Lindrith/Lambda Ratio Lindrith Light Chain Anal Lambda Light Chain Anal Hepatitis A IgM Ab Hep Bs Antigen Hep B Core IgM Ab Hep C IgG Ab 06/03/18 06/03/18 06/04/18 22:45 22:45 00:28 WBC RBC Hgb Hct MCV MCH MCHC RDW Plt Count MPV Prelim Diff (Auto) Neut % (Auto) Lymph % (Auto) [place] % (Auto) Eos % (Auto) Baso % (Auto) Neut # (Auto) Lymph # (Auto) [place] # (Auto) Eos # (Auto) Baso # (Auto) WBC Differential Diff Scan Seg Neuts % (Manual) Band Neuts % (Manual) Lymphocytes % (Manual) Monocytes % (Manual) Eosinophils % (Manual) Basophils % (Manual) Abs Neuts (Manual) Differential Comment Toxic Vacuolation Dohle Bodies Platelet Estimate Platelet Morphology Ovalocytes Acanthocytes (Spur) PT INR APTT Fibrinogen Puncture Site Patient Temperature O2 Saturation ABG pH ABG pCO2 ABG pO2 ABG HCO3 ABG O2 Content ABG Base Excess ABG Methemoglobin Marvin Test Hemoglobin Carboxyhemoglobin O2 Delivery Device Vent Setting Inspired O2 Critical Value Sodium Potassium Chloride Carbon Dioxide Anion Gap BUN Creatinine Estimated GFR POC Glucose 93 Random Glucose Lactic Acid Uric Acid Calcium Prot Corrected Calcium Phosphorus Magnesium Iron TIBC % Saturation Ferritin Total Bilirubin AST ALT Alkaline Phosphatase Ammonia Lactate Dehydrogenase Total Creatine Kinase CK-MB (CK-2) CK-MB (CK-2) % Troponin I Total Protein Total Protein (PEP) Albumin Tumor Marker AFP Carcinoembryonic Ag CA 19-9 Antigen Tumor Marker HCG Vitamin D 25-Hydroxy TSH Free T4 Free T3 PTH Intact Cortisol Urine Color Urine Clarity Urine pH Ur Specific [place] Urine Protein Urine Glucose (UA) Urine Ketones Urine Occult Blood Urine Nitrate Urine Bilirubin Urine Urobilinogen Ur Leukocyte Esterase Urine RBC Urine WBC Ur Squamous Epith Cells Urine Bacteria Urine Mucus Micro UA Comment Urine Culture Comments Urine Eosinophils Rare H Ur Random Creatinine Less than 5 L Ur Random Sodium 141 Nasal Screen MRSA (PCR) IgG IgA IgM Lindrith/Lambda Ratio Lindrith Light Chain Anal Lambda Light Chain Anal Hepatitis A IgM Ab Hep Bs Antigen Hep B Core IgM Ab Hep C IgG Ab 06/04/18 06/04/18 06/04/18 04:00 04:00 04:00 WBC 25.2 H RBC 3.31 L Hgb 9.0 L Hct 27.7 L MCV 83.6 MCH 27.2 MCHC 32.5 RDW 17.4 H Plt Count 33 L MPV 10.8 Prelim Diff (Auto) Manual diff required Neut % (Auto) Lymph % (Auto) [place] % (Auto) Eos % (Auto) Baso % (Auto) Neut # (Auto) Lymph # (Auto) [place] # (Auto) Eos # (Auto) Baso # (Auto) WBC Differential Manual diff final Diff Scan Seg Neuts % (Manual) 79 H Band Neuts % (Manual) 14 H Lymphocytes % (Manual) 4 L Monocytes % (Manual) 2 Eosinophils % (Manual) 1 Basophils % (Manual) Abs Neuts (Manual) 23.4 H Differential Comment . Toxic Vacuolation Present H Dohle Bodies Present H Platelet Estimate Low L Platelet Morphology Normal Ovalocytes Acanthocytes (Spur) 3+ H PT INR APTT Fibrinogen Puncture Site Patient Temperature O2 Saturation ABG pH ABG pCO2 ABG pO2 ABG HCO3 ABG O2 Content ABG Base Excess ABG Methemoglobin Marvin Test Hemoglobin Carboxyhemoglobin O2 Delivery Device Vent Setting Inspired O2 Critical Value Sodium 142 141 Potassium 3.4 L 3.3 L Chloride 111 H 111 H Carbon Dioxide 13.5 L 13.2 L Anion Gap 18 H 17 H BUN 31 H 31 H Creatinine 2.93 H 2.91 H Estimated GFR 18 L 19 L POC Glucose Random Glucose 76 78 Lactic Acid Uric Acid Calcium 6.6 L* 6.7 L* Prot Corrected Calcium 8.0 L Phosphorus 2.5 Magnesium Iron 31 L TIBC 192 L % Saturation 16.2 L Ferritin 346 H Total Bilirubin 1.2 H AST 358 H ALT 109 H Alkaline Phosphatase 88 Ammonia Lactate Dehydrogenase Total Creatine Kinase CK-MB (CK-2) CK-MB (CK-2) % Troponin I Total Protein 4.4 L Total Protein (PEP) 4.4 L Albumin 1.6 L 1.5 L Tumor Marker AFP Carcinoembryonic Ag CA 19-9 Antigen Tumor Marker HCG Vitamin D 25-Hydroxy 28.9 L TSH Free T4 Free T3 PTH Intact Cortisol Urine Color Urine Clarity Urine pH Ur Specific [place] Urine Protein Urine Glucose (UA) Urine Ketones Urine Occult Blood Urine Nitrate Urine Bilirubin Urine Urobilinogen Ur Leukocyte Esterase Urine RBC Urine WBC Ur Squamous Epith Cells Urine Bacteria Urine Mucus Micro UA Comment Urine Culture Comments Urine Eosinophils Ur Random Creatinine Ur Random Sodium Nasal Screen MRSA (PCR) IgG 807 IgA 224 IgM 30 L Lindrith/Lambda Ratio 1.99 Lindrith Light Chain Anal 229 Lambda Light Chain Anal 115 Hepatitis A IgM Ab Hep Bs Antigen Hep B Core IgM Ab Hep C IgG Ab 06/04/18 06/04/18 06/04/18 04:00 04:30 04:51 WBC RBC Hgb Hct MCV MCH MCHC RDW Plt Count MPV Prelim Diff (Auto) Neut % (Auto) Lymph % (Auto) [place] % (Auto) Eos % (Auto) Baso % (Auto) Neut # (Auto) Lymph # (Auto) [place] # (Auto) Eos # (Auto) Baso # (Auto) WBC Differential Diff Scan Seg Neuts % (Manual) Band Neuts % (Manual) Lymphocytes % (Manual) Monocytes % (Manual) Eosinophils % (Manual) Basophils % (Manual) Abs Neuts (Manual) Differential Comment Toxic Vacuolation Dohle Bodies Platelet Estimate Platelet Morphology Ovalocytes Acanthocytes (Spur) PT INR APTT Fibrinogen Puncture Site Patient Temperature O2 Saturation ABG pH ABG pCO2 ABG pO2 ABG HCO3 ABG O2 Content ABG Base Excess ABG Methemoglobin Marvin Test Hemoglobin Carboxyhemoglobin O2 Delivery Device Vent Setting Inspired O2 Critical Value Sodium Potassium Chloride Carbon Dioxide Anion Gap BUN Creatinine Estimated GFR POC Glucose 64 L 133 H Random Glucose Lactic Acid Uric Acid Calcium Prot Corrected Calcium Phosphorus Magnesium Iron TIBC % Saturation Ferritin Total Bilirubin AST ALT Alkaline Phosphatase Ammonia Lactate Dehydrogenase Total Creatine Kinase CK-MB (CK-2) CK-MB (CK-2) % Troponin I Total Protein Total Protein (PEP) Albumin Tumor Marker AFP Carcinoembryonic Ag CA 19-9 Antigen Tumor Marker HCG Vitamin D 25-Hydroxy TSH Free T4 Free T3 PTH Intact 229.0 H Cortisol Urine Color Urine Clarity Urine pH Ur Specific [place] Urine Protein Urine Glucose (UA) Urine Ketones Urine Occult Blood Urine Nitrate Urine Bilirubin Urine Urobilinogen Ur Leukocyte Esterase Urine RBC Urine WBC Ur Squamous Epith Cells Urine Bacteria Urine Mucus Micro UA Comment Urine Culture Comments Urine Eosinophils Ur Random Creatinine Ur Random Sodium Nasal Screen MRSA (PCR) IgG IgA IgM Lindrith/Lambda Ratio Lindrith Light Chain Anal Lambda Light Chain Anal Hepatitis A IgM Ab Hep Bs Antigen Hep B Core IgM Ab Hep C IgG Ab 06/04/18 06/04/18 06/04/18 08:31 08:31 08:31 WBC RBC Hgb Hct MCV MCH MCHC RDW Plt Count MPV Prelim Diff (Auto) Neut % (Auto) Lymph % (Auto) [place] % (Auto) Eos % (Auto) Baso % (Auto) Neut # (Auto) Lymph # (Auto) [place] # (Auto) Eos # (Auto) Baso # (Auto) WBC Differential Diff Scan Seg Neuts % (Manual) Band Neuts % (Manual) Lymphocytes % (Manual) Monocytes % (Manual) Eosinophils % (Manual) Basophils % (Manual) Abs Neuts (Manual) Differential Comment Toxic Vacuolation Dohle Bodies Platelet Estimate Platelet Morphology Ovalocytes Acanthocytes (Spur) PT 14.3 H INR 1.4 APTT 46.7 H Fibrinogen 317 Puncture Site Patient Temperature O2 Saturation ABG pH ABG pCO2 ABG pO2 ABG HCO3 ABG O2 Content ABG Base Excess ABG Methemoglobin Marvin Test Hemoglobin Carboxyhemoglobin O2 Delivery Device Vent Setting Inspired O2 Critical Value Sodium Potassium Chloride Carbon Dioxide Anion Gap BUN Creatinine Estimated GFR POC Glucose Random Glucose Lactic Acid 4.5 H* Uric Acid Calcium Prot Corrected Calcium Phosphorus Magnesium Iron TIBC % Saturation Ferritin Total Bilirubin AST ALT Alkaline Phosphatase Ammonia Lactate Dehydrogenase Total Creatine Kinase CK-MB (CK-2) CK-MB (CK-2) % Troponin I Total Protein Total Protein (PEP) Albumin Tumor Marker AFP Carcinoembryonic Ag CA 19-9 Antigen Tumor Marker HCG Vitamin D 25-Hydroxy TSH Free T4 Free T3 PTH Intact Cortisol Urine Color Urine Clarity Urine pH Ur Specific [place] Urine Protein Urine Glucose (UA) Urine Ketones Urine Occult Blood Urine Nitrate Urine Bilirubin Urine Urobilinogen Ur Leukocyte Esterase Urine RBC Urine WBC Ur Squamous Epith Cells Urine Bacteria Urine Mucus Micro UA Comment Urine Culture Comments Urine Eosinophils Ur Random Creatinine Ur Random Sodium Nasal Screen MRSA (PCR) IgG IgA IgM Lindrith/Lambda Ratio Lindrith Light Chain Anal Lambda Light Chain Anal Hepatitis A IgM Ab Hep Bs Antigen Hep B Core IgM Ab Hep C IgG Ab 06/04/18 06/04/18 09:32 10:14 WBC RBC Hgb Hct MCV MCH MCHC RDW Plt Count MPV Prelim Diff (Auto) Neut % (Auto) Lymph % (Auto) [place] % (Auto) Eos % (Auto) Baso % (Auto) Neut # (Auto) Lymph # (Auto) [place] # (Auto) Eos # (Auto) Baso # (Auto) WBC Differential Diff Scan Seg Neuts % (Manual) Band Neuts % (Manual) Lymphocytes % (Manual) Monocytes % (Manual) Eosinophils % (Manual) Basophils % (Manual) Abs Neuts (Manual) Differential Comment Toxic Vacuolation Dohle Bodies Platelet Estimate Platelet Morphology Ovalocytes Acanthocytes (Spur) PT INR APTT Fibrinogen Puncture Site Right brachial Patient Temperature 98.6 O2 Saturation 97 ABG pH 7.39 ABG pCO2 24 L* ABG pO2 183 H ABG HCO3 14 L* ABG O2 Content 15.0 ABG Base Excess -9.8 L ABG Methemoglobin 1.5 Marvin Test Hemoglobin 10.7 L Carboxyhemoglobin 0.7 O2 Delivery Device Ventilator Vent Setting Prvc 22/520/5+/0.9it Inspired O2 45 Critical Value Yes Sodium Potassium Chloride Carbon Dioxide Anion [place] BUN Creatinine Estimated GFR POC Glucose 78 Random Glucose Lactic Acid Uric Acid Calcium Prot Corrected Calcium Phosphorus Magnesium Iron TIBC % Saturation Ferritin Total Bilirubin AST ALT Alkaline Phosphatase Ammonia Lactate Dehydrogenase Total Creatine Kinase CK-MB (CK-2) CK-MB (CK-2) % Troponin I Total Protein Total Protein (PEP) Albumin Tumor Marker AFP Carcinoembryonic Ag CA 19-9 Antigen Tumor Marker HCG Vitamin D 25-Hydroxy TSH Free T4 Free T3 PTH Intact Cortisol Urine Color Urine Clarity Urine pH Ur Specific [place] Urine Protein Urine Glucose (UA) Urine Ketones Urine Occult Blood Urine Nitrate Urine Bilirubin Urine Urobilinogen Ur Leukocyte Esterase Urine RBC Urine WBC Ur Squamous Epith Cells Urine Bacteria Urine Mucus Micro UA Comment Urine Culture Comments Urine Eosinophils Ur Random Creatinine Ur Random Sodium Nasal Screen MRSA (PCR) IgG IgA IgM Lindrith/Lambda Ratio Lindrith Light Chain Anal Lambda Light Chain Anal Hepatitis A IgM Ab Hep Bs Antigen Hep B Core IgM Ab Hep C IgG Ab Result Diagrams: 06/05/18 10:50 06/05/18 10:50 Microbiology: Microbiology 06/02/18 08:30 Aerobic Blood Culture - Preliminary Blood - Peripheral gram negative rods Anaerobic Blood Culture - Preliminary gram negative rods 06/02/18 08:20 Aerobic Blood Culture - Preliminary Blood - Peripheral Proteus species Anaerobic Blood Culture - Preliminary gram negative rods 06/03/18 12:16 Aerobic Blood Culture - Preliminary Blood - Peripheral No growth in 1 day Anaerobic Blood Culture - Preliminary No growth in 1 day 06/03/18 12:08 Aerobic Blood Culture - Preliminary Blood - Peripheral No growth in 1 day Anaerobic Blood Culture - Preliminary No growth in 1 day 06/03/18 18:30 Gram Stain - Final Sputum - Endotracheal 06/02/18 09:00 Urine Culture - Final Catheterized Urine Proteus mirabilis 06/03/18 02:10 Gram Stain - Final Sputum - Endotracheal 06/03/18 03:45 Influenza Types A,B Antigen - Final Nasal Aspirate Negative for FLU A and B antigen Infection due to influenza A or B cannot be ruled out since the antigen present in the sample may be below the detection limit of the test. Procedures: 06/02-left IJ central line 06/02-intubation Patient/Family Conference Present at Family Conference: 4 adult children Shanice, Pantera, Navi, Colton (2 other adult children Huey Hanson are too overwhelmed and opt to not participate in today's conversation) Family Conference Time: 45 Family Conference Location: Consult Room Issues Discussed: Discussion with family included the following: * Palliative care role, purpose, approach * Additional medical, psychosocial, and spiritual history * Patients general health, functional status, and cognitive status in the months leading up to the current hospitalization * Patient/family understanding of the current medical problems--review of hospital course from admission until now * Patient/family understanding of prognosis * Patients goals of care as best understood from advance directives and/or conversations and/or values * Current medical treatment options and benefits/burdens of those options * Likely scenarios comparing ongoing aggressive care with a transition to comfort measures only--review of possible trajectories including continued aggressive course which might require dialysis, ongoing invasive and aggressive measures versus de-escalation and removal of artificial measures transition to comfort focus. Anticipatory guidance provided. * Review of legal decision makers, family thinks patient may have designated daughter Shanice who is her primary caregiver as a surrogate though they cannot find documentation of this. All family members present in agreement of working together for decision-making and honoring patient's wishes together. * CODE STATUS-review of CPR benefits/burdens/limitations ;all family members present today request DNR status based on patient known wishes * Questions answered to the best of my ability * Palliative care contact information provided Family all appear to have a good understanding of patient overall conditions, prognosis. Family details patient has had some general decline over the past 1 year since a hospitalization in January 2017. She had significant loss of independence, decreased mobility and overall not her usual self. She required rehabilitation and never seemed to get as strong as she was. Now primarily wheelchair to bed or to chair bound. She still lives independently with a daughter living with her for primary caregiving however all the other family members also contribute and they indicate that without this daily 24 7 assistance she would likely require half-way placement. 1 of the family members Colton has actually had to make decisions regarding removing life support on his . Family has questions of what trajectory would look like with continued aggressive care versus de-escalation. They indicate that the patient has always been very against ongoing artificial measures especially if it would not restore her to good health. They indicate she has been struggling with her general decline in the past 1 year and that going forward she would not want to continue with artificial measures. Her daughter Shanice is a health and social care teacher at outpatient hospice center and is very familiar with hemodialysis patients and potential complications, conditions. She indicates that the patient would absolutely not want any type of dialysis short-term or long-term. Family all in agreement that patient would not want to continue with artificial measures prolonging potential suffering. They all indicate they would likely want to proceed with withdrawal of life support and transition to comfort focused in the next day or so. They will await additional family to arrive and ongoing family time with patient and one another collation of treatment such as no additional invasive measures such as transfusions etc. They request DNR. Assessment and Plan - Disease Oriented Problem List (1) Acute respiratory failure (2) Sepsis (3) UTI (urinary tract infection) (4) Metabolic encephalopathy (5) Acute kidney failure (6) Hypernatremia (7) Thrombocytopenia (8) Parkinson disease (9) COPD (chronic obstructive pulmonary disease) (10) Obstructive sleep apnea (11) GERD (gastroesophageal reflux disease) (12) Transaminitis (13) Elevated TSH - Symptom Scale (1) Pain 0-10 Scale: Unable to quantify (2) Anxiety 0-10 Scale: Unable to quantify (3) Dyspnea 0-10 Scale: Unable to quantify Pertinent Non-Medical Issues: Psychosocial: Lives in [place] for most of her life. 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 Well supported by 2 siblings, as well as 6 adult children. Spiritual: [employer] [place], well supported by seam checker from their [place] community Legal:Patient due to clinical condition is unable to participate in decision- making. Does not appear she will regain ability to participate. . She is supported by 6 adult children whom are all working together in decision- making. They think she may have healthcare surrogate designation naming 1 of the daughters though they cannot locate it at this time, and indicate they are all working together. Ethical issues impacting care: No ethical issues identified Important Contacts: dtraul Oliveira [phone] (lives with patient) Other children: Son Pantera Son Navi Son Colton Son Huey Daughter Margie Prognosis: This patient was admitted for altered mental status, fever and lethargy. She has acute sepsis, septic shock, renal failure. Possible DIC. Condition is critical. Very high risk for continued complications and deterioration and possible . Code Status: No Code DNR Plan: Legal decision maker:Patient due to clinical condition is unable to participate in decision-making. Does not appear she will regain ability to participate. . She is supported by 6 adult children whom are all working together in decision-making. They think she may have healthcare surrogate designation naming 1 of the daughters though they cannot locate it at this time, and indicate they are all working together. Goals: After extensive meeting with family today (2 patient's children opting out to participate in today's conversation) they indicate patient preference would be no further escalation of treatment i.e. no blood transfusions, or further escalation. They request DNR status based on patient known wishes. They request no dialysis. They will likely want to transition to comfort focus, and proceed with compassionate withdrawal of life support in the next day or so. They are awaiting additional family members to arrive and have time to visit with patient and family. Discussed with critical care attending, discussed with primary nurse. CODE STATUS: DNR SYMPTOMS: --Pain-patient reported with chronic pain syndromes to her back previously had a spinal stimulator implant in the . She has had chronic back pain since that time. Additional sources would include now bedbound status, multiple recent invasive procedures. not currently on pain medication - has fentanyl drip available has not been administered. Cont to evaluate for discomfort/pain ss/sx --Dyspnea-underlying history of COPD, possible obstructive sleep apnea. Intubated for airway protection. Currently breathing comfortably on mechanical vent. has been ordered for fentanyl, diprivan but has not required --Anxiety-potential for related to acute hospitalization multiple invasive procedures now mechanical vent. Currently appears comfortable on mechanical vent, minimally responsive to exam. Palliative care will continue to follow during hospital course as condition evolves, to assist patient/decision-maker with understanding of medical conditions, weighing benefits/burdens of treatment options, for clarification of goals of treatment. Additionally will assist with any symptoms of palliative concern Time Spent Total Floor Time (mins): 75 (Chart review, PE, discussion with family, discussion with critical care, discussion with nursing) Appreciation Thank you for the opportunity to participate in the care of Keyona Singleton. Attestation Attestation: To help prompt me to consider important information that might be impacting today's encounter and assessment, information from prior notes written by myself or my colleagues may have been "brought forward" into today's note. My signature on this note, however, is an attestation that I personally performed the exam, history, and/or decision-making noted today, and, unless otherwise indicated, the interactions with patient, family, and staff as well as the review of records all occurred today. I also attest that the listed assessment and stated plan reflect my best clinical judgment today based on the combination of historical information, prior notes, and today's exam/ interactions. When time spent is documented, it refers only to time spent today by the signer, or if indicated, combined time spent today by collaborating physician/nurse practitioner.
[2018-06-04] MEDS: Hypromellose 0.3% Opth Gel 10 GM Bottle EACH EYE SCH ×2 (14:55→22:48)
--- NOTE | 2018-06-04 18:42 | P.PNNP ---
Subjective Interval history: The patient is an 82 yo AA female who was brought to this facility on 06/02/18 by her family for AMS. According to records (as the patient is intubated an unable to provide hx and no family present), she was having some SOB at home that resolved with nebulizer treatments. Also reported fever that resolved with APAP. In ED, was given Vancomycin, Rocephin, and Zosyn. She later became significantly hypoglycemic & hypotensive and was emergently intubated for airway protection. She is currently in ICU on vent support and Levo at [facility] [place]. ID has been consulted for evaluation of severe sepsis. UCx is positive for GNR as well as BCx. Zosyn has been changed to Meropenem. We have been consulted for renal failure and anuria. Admitting SCr of 0.95 with eGFR of 61 that has worsened to 2.12 with eGFR 24 at consult. She has had virtually no UOP in the past 12h. Previous labs reviewed showing a baseline SCr of 0.4-0.5 since 2015. She apparently has been more and more debilitated over the years and is now living with her daughter. Palliative care has discussed the situation with patient's daughter who apparently does have intermittent knowledge with dialysis as she does work with a dialysis facility in [place]. The decision has been made not to escalate intensity of care. Family does not want renal replacement therapy i.e. dialysis. Physical Exam Vital signs: Vital Signs 06/03/18 20:00 06/03/18 20:16 06/03/18 22:00 Temperature 99.0 F Pulse Rate 103 H 105 H Respiratory Rate 25 H 25 H Blood Pressure 134/50 L Pulse Oximetry 100 100 06/04/18 00:00 06/04/18 01:22 06/04/18 02:00 Temperature 98.1 F Pulse Rate 101 H 101 H Respiratory Rate 24 23 Blood Pressure 126/56 L Pulse Oximetry 100 100 06/04/18 04:00 06/04/18 04:12 06/04/18 06:00 Temperature 99.5 F Pulse Rate 101 H 101 H Respiratory Rate 24 23 Blood Pressure 126/53 L Pulse Oximetry 100 100 06/04/18 07:32 06/04/18 07:50 06/04/18 08:00 Temperature 98.9 F Pulse Rate 97 H 97 H Respiratory Rate 26 H Blood Pressure 138/64 Pulse Oximetry 100 100 06/04/18 08:59 06/04/18 09:00 06/04/18 10:00 Temperature Pulse Rate 96 H 124 H Respiratory Rate 24 Blood Pressure Pulse Oximetry 100 06/04/18 11:40 06/04/18 12:00 06/04/18 13:38 Temperature 99 F Pulse Rate 95 H 95 H Respiratory Rate 22 26 H Blood Pressure 155/56 H Pulse Oximetry 100 100 06/04/18 16:00 06/04/18 16:16 06/04/18 18:00 Temperature 99.1 F Pulse Rate 96 H 96 H Respiratory Rate 25 H 22 Blood Pressure 143/64 H Pulse Oximetry 100 100 Intake & Output 06/03/18 06/04/18 06/04/18 18:59 06:59 18:59 Intake Total 1100 / 1100 2550 / 2550 220 / 220 Output Total 30 30 265 / 265 Balance 1070 / 1070 2285 / 2285 220 / 220 Weight 70.2 kg Intake: IV 1100 / 1100 2550 / 2550 100 / 100 D5W/1/2 NS Inj 1,000 ML @ 125 1000 / 1000 2000 / 2000 mls/hr IV.CONT .Q8H KLAUDIA Rx#: [id number] Levophed Inj 16 MG In NS Inj 250 / 250 234 ML @ 2 MCG/MIN 1.87 mls/hr IV.CONT TITRATE PRN Rx#: [id number] Pitressin Inj 40 UNIT In NS Inj 100 / 100 100 / 100 98 ML @ 0.04 UNITS/MIN 6 mls/ hr IV.CONT CONT KLAUDIA Rx#: [id number] Merrem Inj 500 MG In NS Inj 100 300 / 300 ML @ 200 mls/hr IV.SIG Q8H KLAUDIA Rx#:[id number] Oral 0 / 0 0 / 0 Tube Irrigant 60 / 60 Water Bolus Amount 60 / 60 Output: Urine 20 / 20 Urine Amount (Catheter) 0 / 0 Indwelling Urethral Catheter 0 / 0 Gastric Drainage 245 / 245 Orogastric Tube 245 / 245 Other: Date of Last Bowel Movement 06/03/18 06/04/18 06/04/18 # Incontinent Bowel Movements 1 3 Narrative: GENERAL: Debilitated appearing frail elderly female currently with an ET tube in place on a ventilator. SKIN: Warm and dry. HEAD: Normocephalic. EYES: No scleral icterus. No injection or drainage. NECK: Supple, trachea midline. No JVD or lymphadenopathy. CARDIOVASCULAR: Regular rate and rhythm without murmurs, gallops, or rubs. RESPIRATORY: Breath sounds equal bilaterally. No accessory muscle use. GASTROINTESTINAL: Abdomen soft, non-tender, nondistended. MUSCULOSKELETAL: Trace edema of the ankles and feet. Wasting of musculature of all limbs. - Urinary Catheter Management Indwelling Urethral Catheter Cath placed during this visit: yes Reason for continuing: Acute urinary retention Insertion date: 06/02/18 Insertion time: 23:20 Assessment and Plan - Assessment (1) Acute kidney failure Code(s): N17.9 - Acute kidney failure, unspecified Status: Acute Plan: Apparently acute renal failure 2/2 to septic shock. UOP minimal at best. Baseline SCr as per previous records 0.4-0.5 likely low 2/2 to debilitation and muscular atrophy. No improvement in renal function with persisting metabolic acidosis and oliguria. As per family's wishes care Will not be escalated and dialysis is not desired by the family including daughter. This would appear to be appropriate as the patient appears to be a very poor dialysis candidate given her current condition dialysis will not likely be tolerated well and unlikely to improve the patient's prognosis. At this point in time patient will be seen as needed. Please recall if needed or if any questions. Medications should be adjusted for the patient's renal decline. Avoid nephrotoxins such as iodinated contrast dyes and NSAIDs. Avoid gadolinium. (2) Sepsis Code(s): A41.9 - Sepsis, unspecified organism Status: Acute Qualifiers: Sepsis type: sepsis due to unspecified organism Qualified Code(s): A41.9 - Sepsis, unspecified organism Plan: Potentially urinary source. Abx as per ID (3) UTI (urinary tract infection) Code(s): N39.0 - Urinary tract infection, site not specified Status: Acute Qualifiers: Urinary tract infection type: acute cystitis Hematuria presence: without hematuria Qualified Code(s): N30.00 - Acute cystitis without hematuria (4) Anemia Code(s): D64.9 - Anemia, unspecified Status: Acute Plan: Repeat CBC with Fe panel. As above, will check serology for completeness. (5) Hypernatremia Code(s): E87.0 - Hyperosmolality and hypernatremia Status: Acute Plan: Indicating free water deficit. Continue IVF with D5 1/2NS (6) Thrombocytopenia Code(s): D69.6 - Thrombocytopenia, unspecified Status: Acute Plan: Related to sepsis? Management/ work-up deferred to CC
[2018-06-05] MEDS: Insulin NovoLOG Aspart Correctional Sugar Inj SQ SCH ×5 (05:01→15:16)
[2018-06-05] MEDS: Heparin - SQ 10,000 UNITS/ML Vial SQ SCH ×2 (05:02→09:05)
[2018-06-05] MEDS: Oral Hygiene Kit OROPHARYNG SCH ×3 (05:04→18:01)
[2018-06-05] MEDS: Sodium Bicarbonate 8.4% Inj 150 MEQ in Dextrose 5% in Water Inj 850 ML IV.CONT SCH ×4 (09:00→18:01)
[2018-06-05] MEDS: Hypromellose 0.3% Opth Gel 10 GM Bottle EACH EYE SCH ×2 (11:16→15:16)
[2018-06-05 11:18] LABS: Baso # (Auto) 0.1 th/mm3 (0.0-0.2); Baso % (Auto) 0.4 % (0.0-2.0); Eos # (Auto) 0.2 th/mm3 (0.0-0.4); Hematocrit 25.2 % (35.0-46.0); Hemoglobin 8.2 gm/dL (11.6-15.3); Lymph # (Auto) 1.3 th/mm3 (1.0-4.8); Lymph % (Auto) 6.4 % (9.0-44.0); Mean Corpuscular HGB Conc 32.6 % (32.0-36.0); Mean Corpuscular Hemoglobin 26.8 pg (27.0-34.0); Mean Corpuscular Volume 82.2 fL (80.0-100.0); Mean Platelet Volume 11.2 fL (7.0-11.0); Mono % (Auto) 4.8 % (0.0-8.0); Neut # (Auto) 17.9 th/mm3 (1.8-7.7); Neut % (Auto) 87.4 % (16.0-70.0); Platelet Count 20 th/mm3 (150-450); Red Blood Count 3.06 mil/mm3 (4.00-5.30); Red Cell Distribution Width 17.4 % (11.6-17.2); White Blood Count 20.5 th/mm3 (4.0-11.0)
[2018-06-05] MEDS: Chlorhexidine 0.12% Oral Kit 15 ML UDC OROPHARYNG SCH ×2 (11:19)
[2018-06-05] MEDS: Senna/Docusate Sodium 8.6/50 MG Tablet PO SCH (11:19)
[2018-06-05 11:47] LABS: Albumin 1.4 g/dL (3.4-5.0); Calcium 6.7 mg/dL (8.5-10.1); Carbon Dioxide 22.7 meq/L (21.0-32.0); Potassium 3.5 meq/L (3.5-5.1); Total Protein 4.4 g/dL (6.4-8.2)
--- NOTE | 2018-06-05 11:54 | P.PNPAL ---
Reason for Visit Reason for visit: a. To assist with evaluation and management of symptoms including:dyspnea , pain b. To assist medical decision maker(s) with: better understanding of current medical conditions; weighing benefits/burdens of medical treatment options; making medical treatment decisions. Subjective Subjective/Interval History: Pt seen today to follow up on goals of treatment with family, comfort. (dual visit w Uriah RAMIREZP) She remains on mech vent in ICU. Remains on vasopressin. Levophed has been weaned off. No sedation. Withdrawing to pain per nursing. CBC, chemistry pending. Still aneuric. Pt seen in room, multiple family members at bedside ( adult children, niece etc ) She does localize to touch on extremities weak movement noted. No eye opening. No apparent distress. Lungs w course rhonchi. Met with 5 adult children at bedside. They indicate they have discussed as a family, and wish to proceed with compassionate withdrawal of life support today , at 6pm. They express that pt would not want to continue with artificial measures, would NOT want dialysis. Review anticipatory guidance/process. They voice understanding.They will be having their own battery vent plug inserter present. D/w primary nurse, attending, ID . Will plan to enter withdrawal orders at 5pm to have everything in place for 6pm anticipated withdrawal. Objective Vital Signs: Vital Signs 06/04/18 12:00 06/04/18 13:38 06/04/18 16:00 Temperature 99 F 99.1 F Pulse Rate 95 H 95 H 96 H Respiratory Rate 26 H 25 H Blood Pressure 155/56 H 143/64 H Pulse Oximetry 100 100 06/04/18 16:16 06/04/18 18:00 06/04/18 19:24 Temperature Pulse Rate 96 H Respiratory Rate 22 22 Blood Pressure Pulse Oximetry 100 100 06/04/18 20:00 06/04/18 22:00 06/04/18 23:31 Temperature Pulse Rate 96 H 83 Respiratory Rate 23 Blood Pressure Pulse Oximetry 100 100 06/05/18 02:00 06/05/18 03:20 06/05/18 03:30 Temperature Pulse Rate 65 96 H 96 H Respiratory Rate Blood Pressure 140/64 123/60 Pulse Oximetry 100 100 06/05/18 03:40 06/05/18 03:50 06/05/18 04:00 Temperature Pulse Rate 95 H 96 H 96 H Respiratory Rate 22 Blood Pressure 118/57 L 128/59 L 119/59 L Pulse Oximetry 100 100 100 06/05/18 04:10 06/05/18 04:20 06/05/18 04:30 Temperature Pulse Rate 96 H 95 H 93 H Respiratory Rate Blood Pressure 121/60 130/61 117/59 L Pulse Oximetry 100 100 100 06/05/18 04:40 06/05/18 04:50 06/05/18 05:00 Temperature Pulse Rate 94 H 95 H 94 H Respiratory Rate Blood Pressure 134/63 129/62 137/57 L Pulse Oximetry 100 100 100 06/05/18 05:10 06/05/18 05:20 06/05/18 05:30 Temperature Pulse Rate 95 H 96 H 95 H Respiratory Rate Blood Pressure 127/63 132/65 122/61 Pulse Oximetry 100 100 100 06/05/18 05:40 06/05/18 05:50 06/05/18 06:00 Temperature Pulse Rate 94 H 95 H 94 H Respiratory Rate Blood Pressure 134/62 130/59 L 133/60 Pulse Oximetry 100 100 100 06/05/18 06:10 06/05/18 06:20 06/05/18 06:30 Temperature Pulse Rate 93 H 93 H 93 H Respiratory Rate Blood Pressure 124/55 L 120/58 L 132/63 Pulse Oximetry 100 100 100 06/05/18 06:40 06/05/18 06:50 06/05/18 07:00 Temperature Pulse Rate 94 H 93 H 93 H Respiratory Rate Blood Pressure 140/63 133/60 126/60 Pulse Oximetry 100 100 100 06/05/18 07:10 06/05/18 07:20 06/05/18 08:00 Temperature Pulse Rate 92 H 93 H Respiratory Rate 22 Blood Pressure 131/61 126/57 L Pulse Oximetry 100 100 100 Intake & Output 06/04/18 06/05/18 06/05/18 18:59 06:59 18:59 Intake Total 320 / 320 1000 / 1000 1000 / 1000 Output Total 50 / 50 Balance 320 / 320 950 / 950 1000 / 1000 Intake: IV 200 / 200 1000 / 1000 1000 / 1000 Sodium Bicarbonate 8.4% Inj 150 1000 / 1000 1000 / 1000 MEQ In D5W Inj 850 ML @ 100 mls/hr IV.CONT .Q10H [facility] Rx#: [id number] Pitressin Inj 40 UNIT In NS Inj 100 / 100 98 ML @ 0.04 UNITS/MIN 6 mls/ hr IV.CONT CONT [facility] Rx#: [id number] Teflaro Inj 600 MG In NS Inj 100 / 100 100 ML @ 100 mls/hr IV.SIG Q8H [facility] Rx#:[id number] Oral 0 / 0 Tube Feeding 0 / 0 Tube Irrigant 60 / 60 Water Bolus Amount 60 / 60 Output: Urine 50 / 50 Other: Date of Last Bowel Movement 06/04/18 06/04/18 Weight On Admission 70.2 kg Physical Exam: CONSTITUTIONAL/GENERAL: This is an adequately nourished patient, on mechanical vent no apparent distress TUBES/LINES/DRAINS: Central line IJ, arterial line radial, multiple peripheral IVs to upper extremities, English catheter, ET tube, OG tube SKIN: No jaundice, rashes, or lesions. Multiple areas confluent ecchymotic patterns to bilateral thighs, upper arms ? Thrombotic. Skin today warm/dry. CARDIOVASCULAR: Regular rate and rhythm . No murmur . no JVD. Peripheral pulses faint/weak. RESPIRATORY/CHEST: Symmetric, unlabored respirations. On mechanical vent. Spontaneous respirations over mechanical vent rate. Course scattered rhonchi. Breath sounds equal bilaterally. GASTROINTESTINAL: Abdomen soft, no apparent tenderness. nondistended. No hepato -splenomegaly. Small 2-3 cm palpable device right abdomen/flank implanted device, bowel sounds intermittent. OG tube clamped. GENITOURINARY: Without palpable bladder distension. English catheter in place-no urine present MUSCULOSKELETAL: Extremities without clubbing, cyanosis, or edema. No joint tenderness or effusion noted. Extremities are cool.Multiple areas confluent ecchymotic patterns to bilateral thighs, upper arms ? Thrombotic. NEUROLOGICAL: Minimally responsive on mechanical vent. Does not open eyes. Slight localization and movement of feet , hands to touch. No movement of upper extremities. PSYCHIATRIC: No obvious anxiety/depression. Limited assessment due to clinical condition/minimally responsive Diagnostic Tests Laboratory: Laboratory Results - last 72 hr 06/02/18 06/02/18 06/02/18 09:00 12:52 16:00 WBC RBC Hgb Hct MCV MCH MCHC RDW Plt Count MPV Prelim Diff (Auto) Neut % (Auto) Lymph % (Auto) [place] % (Auto) Eos % (Auto) Baso % (Auto) Neut # (Auto) Lymph # (Auto) [place] # (Auto) Eos # (Auto) Baso # (Auto) WBC Differential Seg Neuts % (Manual) Band Neuts % (Manual) Lymphocytes % (Manual) Monocytes % (Manual) Eosinophils % (Manual) Basophils % (Manual) Abs Neuts (Manual) Differential Comment Toxic Vacuolation Dohle Bodies Platelet Estimate Platelet Morphology Ovalocytes Acanthocytes (Spur) PT INR APTT Fibrinogen Puncture Site Patient Temperature O2 Saturation ABG pH ABG pCO2 ABG pO2 ABG HCO3 ABG O2 Content ABG Base Excess ABG Methemoglobin Marvin Test Hemoglobin Carboxyhemoglobin O2 Delivery Device Vent Setting Inspired O2 Critical Value Sodium Potassium Chloride Carbon Dioxide Anion Gap BUN Creatinine Estimated GFR POC Glucose Random Glucose Lactic Acid 5.8 H* Uric Acid Calcium Prot Corrected Calcium Phosphorus Magnesium Iron TIBC % Saturation Ferritin Total Bilirubin AST ALT Alkaline Phosphatase Ammonia Lactate Dehydrogenase Total Creatine Kinase CK-MB (CK-2) CK-MB (CK-2) % Troponin I Total Protein Total Protein (PEP) Albumin Albumin (PEP) Albumin/Globulin Ratio Fvbct-8-Wufxhswee Buldu-9-Ibavodqup Beta Globulins Gamma Globulins Tumor Marker AFP Carcinoembryonic Ag CA 19-9 Antigen Tumor Marker HCG Vitamin D 25-Hydroxy TSH Free T4 Free T3 PTH Intact Cortisol Urine Color Yellow Urine Clarity Hazy H Urine pH 8.0 Ur Specific [place] 1.010 Urine Protein Negative Urine Glucose (UA) Negative Urine Ketones Negative Urine Occult Blood Moderate H Urine Nitrate Positive H Urine Bilirubin Negative Urine Urobilinogen Less than 2 Ur Leukocyte Esterase Moderate H Urine RBC 1 Urine WBC 14 H Ur Squamous Epith Cells 2 Urine Bacteria Many H Urine Mucus Few H Micro UA Comment Cath-culture ind Urine Culture Comments Cath-cult indicated Urine Eosinophils Ur Random Creatinine Ur Random Sodium Nasal Screen MRSA (PCR) Not detected IgG IgA IgM Lyndon/Lambda Ratio Lyndon Light Chain Anal Lambda Light Chain Anal Hepatitis A IgM Ab Hep Bs Antigen Hep B Core IgM Ab Hep C IgG Ab 06/02/18 06/02/18 06/02/18 21:06 21:32 22:16 WBC RBC Hgb Hct MCV MCH MCHC RDW Plt Count MPV Prelim Diff (Auto) Neut % (Auto) Lymph % (Auto) [place] % (Auto) Eos % (Auto) Baso % (Auto) Neut # (Auto) Lymph # (Auto) [place] # (Auto) Eos # (Auto) Baso # (Auto) WBC Differential Seg Neuts % (Manual) Band Neuts % (Manual) Lymphocytes % (Manual) Monocytes % (Manual) Eosinophils % (Manual) Basophils % (Manual) Abs Neuts (Manual) Differential Comment Toxic Vacuolation Dohle Bodies Platelet Estimate Platelet Morphology Ovalocytes Acanthocytes (Spur) PT INR APTT Fibrinogen Puncture Site Patient Temperature O2 Saturation ABG pH ABG pCO2 ABG pO2 ABG HCO3 ABG O2 Content ABG Base Excess ABG Methemoglobin Marvin Test Hemoglobin Carboxyhemoglobin O2 Delivery Device Vent Setting Inspired O2 Critical Value Sodium 149 H Potassium 3.8 Chloride 116 H Carbon Dioxide 17.8 L Anion Gap 15 BUN 27 H Creatinine 2.26 H Estimated GFR 23 L POC Glucose 33 L* 147 H Random Glucose 93 Lactic Acid Uric Acid Calcium 7.8 L D Prot Corrected Calcium Phosphorus Magnesium Iron TIBC % Saturation Ferritin Total Bilirubin 0.8 AST 331 H ALT 61 H Alkaline Phosphatase 78 Ammonia Lactate Dehydrogenase Total Creatine Kinase CK-MB (CK-2) CK-MB (CK-2) % Troponin I Total Protein 5.0 L D Total Protein (PEP) Albumin 2.0 L Albumin (PEP) Albumin/Globulin Ratio Deqxm-9-Tvojrrzxy Aqivd-6-Mvftamenu Beta Globulins Gamma Globulins Tumor Marker AFP Carcinoembryonic Ag CA 19-9 Antigen Tumor Marker HCG Vitamin D 25-Hydroxy TSH Free T4 Free T3 PTH Intact Cortisol Urine Color Urine Clarity Urine pH Ur Specific [place] Urine Protein Urine Glucose (UA) Urine Ketones Urine Occult Blood Urine Nitrate Urine Bilirubin Urine Urobilinogen Ur Leukocyte Esterase Urine RBC Urine WBC Ur Squamous Epith Cells Urine Bacteria Urine Mucus Micro UA Comment Urine Culture Comments Urine Eosinophils Ur Random Creatinine Ur Random Sodium Nasal Screen MRSA (PCR) IgG IgA IgM Lyndon/Lambda Ratio Lyndon Light Chain Anal Lambda Light Chain Anal Hepatitis A IgM Ab Hep Bs Antigen Hep B Core IgM Ab Hep C IgG Ab 06/02/18 06/02/18 06/02/18 22:16 22:16 22:32 WBC RBC Hgb Hct MCV MCH MCHC RDW Plt Count MPV Prelim Diff (Auto) Neut % (Auto) Lymph % (Auto) [place] % (Auto) Eos % (Auto) Baso % (Auto) Neut # (Auto) Lymph # (Auto) [place] # (Auto) Eos # (Auto) Baso # (Auto) WBC Differential Seg Neuts % (Manual) Band Neuts % (Manual) Lymphocytes % (Manual) Monocytes % (Manual) Eosinophils % (Manual) Basophils % (Manual) Abs Neuts (Manual) Differential Comment Toxic Vacuolation Dohle Bodies Platelet Estimate Platelet Morphology Ovalocytes Acanthocytes (Spur) PT INR APTT Fibrinogen Puncture Site Patient Temperature O2 Saturation ABG pH ABG pCO2 ABG pO2 ABG HCO3 ABG O2 Content ABG Base Excess ABG Methemoglobin Marvin Test Hemoglobin Carboxyhemoglobin O2 Delivery Device Vent Setting Inspired O2 Critical Value Sodium Potassium Chloride Carbon Dioxide Anion Gap BUN Creatinine Estimated GFR POC Glucose 91 Random Glucose Lactic Acid 8.5 H* Uric Acid Calcium Prot Corrected Calcium Phosphorus Magnesium Iron TIBC % Saturation Ferritin Total Bilirubin AST ALT Alkaline Phosphatase Ammonia 12 Lactate Dehydrogenase Total Creatine Kinase CK-MB (CK-2) CK-MB (CK-2) % Troponin I Total Protein Total Protein (PEP) Albumin Albumin (PEP) Albumin/Globulin Ratio Fhach-9-Fsrxnkhoo Pqibi-4-Nxxhpdsng Beta Globulins Gamma Globulins Tumor Marker AFP Carcinoembryonic Ag CA 19-9 Antigen Tumor Marker HCG Vitamin D 25-Hydroxy TSH Free T4 Free T3 PTH Intact Cortisol Urine Color Urine Clarity Urine pH Ur Specific [place] Urine Protein Urine Glucose (UA) Urine Ketones Urine Occult Blood Urine Nitrate Urine Bilirubin Urine Urobilinogen Ur Leukocyte Esterase Urine RBC Urine WBC Ur Squamous Epith Cells Urine Bacteria Urine Mucus Micro UA Comment Urine Culture Comments Urine Eosinophils Ur Random Creatinine Ur Random Sodium Nasal Screen MRSA (PCR) IgG IgA IgM Lyndon/Lambda Ratio Lyndon Light Chain Anal Lambda Light Chain Anal Hepatitis A IgM Ab Hep Bs Antigen Hep B Core IgM Ab Hep C IgG Ab 06/02/18 06/02/18 06/03/18 23:41 23:47 01:45 WBC RBC Hgb Hct MCV MCH MCHC RDW Plt Count MPV Prelim Diff (Auto) Neut % (Auto) Lymph % (Auto) [place] % (Auto) Eos % (Auto) Baso % (Auto) Neut # (Auto) Lymph # (Auto) [place] # (Auto) Eos # (Auto) Baso # (Auto) WBC Differential Seg Neuts % (Manual) Band Neuts % (Manual) Lymphocytes % (Manual) Monocytes % (Manual) Eosinophils % (Manual) Basophils % (Manual) Abs Neuts (Manual) Differential Comment Toxic Vacuolation Dohle Bodies Platelet Estimate Platelet Morphology Ovalocytes Acanthocytes (Spur) PT INR APTT Fibrinogen Puncture Site Left radial Patient Temperature 98.6 O2 Saturation 97 ABG pH 7.22 L* ABG pCO2 33 L ABG pO2 321 H ABG HCO3 13 L* ABG O2 Content 14.5 ABG Base Excess -13.1 L ABG Methemoglobin 1.5 Marvin Test Present Hemoglobin 10.0 L Carboxyhemoglobin 0.4 O2 Delivery Device Vent Vent Setting Prvc/ac Inspired O2 100 Critical Value Yes Sodium Potassium Chloride Carbon Dioxide Anion Gap BUN Creatinine Estimated GFR POC Glucose 137 H 85 Random Glucose Lactic Acid Uric Acid Calcium Prot Corrected Calcium Phosphorus Magnesium Iron TIBC % Saturation Ferritin Total Bilirubin AST ALT Alkaline Phosphatase Ammonia Lactate Dehydrogenase Total Creatine Kinase CK-MB (CK-2) CK-MB (CK-2) % Troponin I Total Protein Total Protein (PEP) Albumin Albumin (PEP) Albumin/Globulin Ratio Htkxv-5-Upypktyco Chwxd-7-Yygezvnau Beta Globulins Gamma Globulins Tumor Marker AFP Carcinoembryonic Ag CA 19-9 Antigen Tumor Marker HCG Vitamin D 25-Hydroxy TSH Free T4 Free T3 PTH Intact Cortisol Urine Color Urine Clarity Urine pH Ur Specific [place] Urine Protein Urine Glucose (UA) Urine Ketones Urine Occult Blood Urine Nitrate Urine Bilirubin Urine Urobilinogen Ur Leukocyte Esterase Urine RBC Urine WBC Ur Squamous Epith Cells Urine Bacteria Urine Mucus Micro UA Comment Urine Culture Comments Urine Eosinophils Ur Random Creatinine Ur Random Sodium Nasal Screen MRSA (PCR) IgG IgA IgM Lyndon/Lambda Ratio Lyndon Light Chain Anal Lambda Light Chain Anal Hepatitis A IgM Ab Hep Bs Antigen Hep B Core IgM Ab Hep C IgG Ab 06/03/18 06/03/18 06/03/18 03:30 03:30 03:30 WBC 30.9 H D RBC 3.53 L Hgb 9.5 L D Hct 30.4 L MCV 86.0 MCH 26.9 L MCHC 31.3 L RDW 17.5 H Plt Count 61 L D MPV 8.9 Prelim Diff (Auto) Slide review pending Neut % (Auto) Lymph % (Auto) [place] % (Auto) Eos % (Auto) Baso % (Auto) Neut # (Auto) Lymph # (Auto) [place] # (Auto) Eos # (Auto) Baso # (Auto) WBC Differential Manual diff final Seg Neuts % (Manual) 59 Band Neuts % (Manual) 34 H Lymphocytes % (Manual) 4 L Monocytes % (Manual) 2 Eosinophils % (Manual) Basophils % (Manual) 1 Abs Neuts (Manual) 28.7 H Differential Comment . Toxic Vacuolation Dohle Bodies Platelet Estimate Low L Platelet Morphology Normal Ovalocytes 2+ H Acanthocytes (Spur) PT INR APTT Fibrinogen Puncture Site Patient Temperature O2 Saturation ABG pH ABG pCO2 ABG pO2 ABG HCO3 ABG O2 Content ABG Base Excess ABG Methemoglobin Marvin Test Hemoglobin Carboxyhemoglobin O2 Delivery Device Vent Setting Inspired O2 Critical Value Sodium 146 H Potassium 3.5 Chloride 114 H Carbon Dioxide 18.4 L Anion Gap 14 BUN 27 H Creatinine 2.12 H Estimated GFR 24 L POC Glucose Random Glucose 78 Lactic Acid Uric Acid Calcium 7.3 L* Prot Corrected Calcium 8.7 Phosphorus 2.8 Magnesium 1.4 L Iron TIBC % Saturation Ferritin Total Bilirubin 1.0 AST 515 H ALT 99 H Alkaline Phosphatase 68 Ammonia 20 Lactate Dehydrogenase Total Creatine Kinase 730 H CK-MB (CK-2) 14.7 H CK-MB (CK-2) % 2.0 Troponin I 0.26 H D Total Protein 4.6 L Total Protein (PEP) Albumin 1.8 L Albumin (PEP) Albumin/Globulin Ratio Yhinh-1-Pnxudpioq Wvwmv-6-Cytdovdce Beta Globulins Gamma Globulins Tumor Marker AFP Carcinoembryonic Ag CA 19-9 Antigen Tumor Marker HCG Vitamin D 25-Hydroxy TSH 5.640 H Free T4 1.25 Free T3 1.32 L PTH Intact Cortisol Urine Color Urine Clarity Urine pH Ur Specific [place] Urine Protein Urine Glucose (UA) Urine Ketones Urine Occult Blood Urine Nitrate Urine Bilirubin Urine Urobilinogen Ur Leukocyte Esterase Urine RBC Urine WBC Ur Squamous Epith Cells Urine Bacteria Urine Mucus Micro UA Comment Urine Culture Comments Urine Eosinophils Ur Random Creatinine Ur Random Sodium Nasal Screen MRSA (PCR) IgG IgA IgM Lyndon/Lambda Ratio Lyndon Light Chain Anal Lambda Light Chain Anal Hepatitis A IgM Ab Hep Bs Antigen Hep B Core IgM Ab Hep C IgG Ab 06/03/18 06/03/18 06/03/18 03:30 03:30 03:30 WBC RBC Hgb Hct MCV MCH MCHC RDW Plt Count MPV Prelim Diff (Auto) Neut % (Auto) Lymph % (Auto) [place] % (Auto) Eos % (Auto) Baso % (Auto) Neut # (Auto) Lymph # (Auto) [place] # (Auto) Eos # (Auto) Baso # (Auto) WBC Differential Seg Neuts % (Manual) Band Neuts % (Manual) Lymphocytes % (Manual) Monocytes % (Manual) Eosinophils % (Manual) Basophils % (Manual) Abs Neuts (Manual) Differential Comment Toxic Vacuolation Dohle Bodies Platelet Estimate Platelet Morphology Ovalocytes Acanthocytes (Spur) PT INR APTT Fibrinogen Puncture Site Patient Temperature O2 Saturation ABG pH ABG pCO2 ABG pO2 ABG HCO3 ABG O2 Content ABG Base Excess ABG Methemoglobin Marvin Test Hemoglobin Carboxyhemoglobin O2 Delivery Device Vent Setting Inspired O2 Critical Value Sodium Potassium Chloride Carbon Dioxide Anion Gap BUN Creatinine Estimated GFR POC Glucose Random Glucose Lactic Acid 6.1 H* Uric Acid Calcium Prot Corrected Calcium Phosphorus Magnesium Iron TIBC % Saturation Ferritin Total Bilirubin AST ALT Alkaline Phosphatase Ammonia Lactate Dehydrogenase 2396 H Total Creatine Kinase CK-MB (CK-2) CK-MB (CK-2) % Troponin I Total Protein Total Protein (PEP) Albumin Albumin (PEP) Albumin/Globulin Ratio Myadb-8-Xrobqjpnv Aueqr-0-Ljbocyzlo Beta Globulins Gamma Globulins Tumor Marker AFP 8.8 H Carcinoembryonic Ag 1.7 CA 19-9 Antigen Tumor Marker HCG Less than 1 Vitamin D 25-Hydroxy TSH Free T4 Free T3 PTH Intact Cortisol 12.8 Urine Color Urine Clarity Urine pH Ur Specific [place] Urine Protein Urine Glucose (UA) Urine Ketones Urine Occult Blood Urine Nitrate Urine Bilirubin Urine Urobilinogen Ur Leukocyte Esterase Urine RBC Urine WBC Ur Squamous Epith Cells Urine Bacteria Urine Mucus Micro UA Comment Urine Culture Comments Urine Eosinophils Ur Random Creatinine Ur Random Sodium Nasal Screen MRSA (PCR) IgG IgA IgM Lyndon/Lambda Ratio Lyndon Light Chain Anal Lambda Light Chain Anal Hepatitis A IgM Ab Hep Bs Antigen Hep B Core IgM Ab Hep C IgG Ab 06/03/18 06/03/18 06/03/18 03:30 03:30 03:30 WBC RBC Hgb Hct MCV MCH MCHC RDW Plt Count MPV Prelim Diff (Auto) Neut % (Auto) Lymph % (Auto) [place] % (Auto) Eos % (Auto) Baso % (Auto) Neut # (Auto) Lymph # (Auto) [place] # (Auto) Eos # (Auto) Baso # (Auto) WBC Differential Seg Neuts % (Manual) Band Neuts % (Manual) Lymphocytes % (Manual) Monocytes % (Manual) Eosinophils % (Manual) Basophils % (Manual) Abs Neuts (Manual) Differential Comment Toxic Vacuolation Dohle Bodies Platelet Estimate Platelet Morphology Ovalocytes Acanthocytes (Spur) PT INR APTT Fibrinogen Puncture Site Patient Temperature O2 Saturation ABG pH ABG pCO2 ABG pO2 ABG HCO3 ABG O2 Content ABG Base Excess ABG Methemoglobin Marvin Test Hemoglobin Carboxyhemoglobin O2 Delivery Device Vent Setting Inspired O2 Critical Value Sodium Potassium Chloride Carbon Dioxide Anion Gap BUN Creatinine Estimated GFR POC Glucose Random Glucose Lactic Acid Uric Acid 3.6 Calcium Prot Corrected Calcium Phosphorus Magnesium Iron TIBC % Saturation Ferritin Total Bilirubin AST ALT Alkaline Phosphatase Ammonia Lactate Dehydrogenase Total Creatine Kinase CK-MB (CK-2) CK-MB (CK-2) % Troponin I Total Protein Total Protein (PEP) Albumin Albumin (PEP) Albumin/Globulin Ratio Opfez-5-Sxkincxla Cgusv-9-Gutcszirm Beta Globulins Gamma Globulins Tumor Marker AFP Carcinoembryonic Ag CA 19-9 Antigen 3.7 Tumor Marker HCG Vitamin D 25-Hydroxy TSH Free T4 Free T3 PTH Intact Cortisol Urine Color Urine Clarity Urine pH Ur Specific [place] Urine Protein Urine Glucose (UA) Urine Ketones Urine Occult Blood Urine Nitrate Urine Bilirubin Urine Urobilinogen Ur Leukocyte Esterase Urine RBC Urine WBC Ur Squamous Epith Cells Urine Bacteria Urine Mucus Micro UA Comment Urine Culture Comments Urine Eosinophils Ur Random Creatinine Ur Random Sodium Nasal Screen MRSA (PCR) IgG IgA IgM Lyndon/Lambda Ratio Lyndon Light Chain Anal Lambda Light Chain Anal Hepatitis A IgM Ab Nonreactive Hep Bs Antigen Nonreactive Hep B Core IgM Ab Nonreactive Hep C IgG Ab Nonreactive 06/03/18 06/03/18 06/03/18 04:03 05:26 09:20 WBC RBC Hgb Hct MCV MCH MCHC RDW Plt Count MPV Prelim Diff (Auto) Neut % (Auto) Lymph % (Auto) [place] % (Auto) Eos % (Auto) Baso % (Auto) Neut # (Auto) Lymph # (Auto) [place] # (Auto) Eos # (Auto) Baso # (Auto) WBC Differential Seg Neuts % (Manual) Band Neuts % (Manual) Lymphocytes % (Manual) Monocytes % (Manual) Eosinophils % (Manual) Basophils % (Manual) Abs Neuts (Manual) Differential Comment Toxic Vacuolation Dohle Bodies Platelet Estimate Platelet Morphology Ovalocytes Acanthocytes (Spur) PT INR APTT Fibrinogen Puncture Site Right brachial Patient Temperature 98.6 O2 Saturation 97 ABG pH 7.37 L ABG pCO2 26 L ABG pO2 197 H ABG HCO3 15 L* ABG O2 Content 13.7 ABG Base Excess -9.8 L ABG Methemoglobin 1.5 Marvin Test Hemoglobin 9.7 L Carboxyhemoglobin 0.6 O2 Delivery Device Vent Vent Setting Prvc/ac Inspired O2 60 Critical Value Yes Sodium Potassium Chloride Carbon Dioxide Anion Gap BUN Creatinine Estimated GFR POC Glucose 94 108 Random Glucose Lactic Acid Uric Acid Calcium Prot Corrected Calcium Phosphorus Magnesium Iron TIBC % Saturation Ferritin Total Bilirubin AST ALT Alkaline Phosphatase Ammonia Lactate Dehydrogenase Total Creatine Kinase CK-MB (CK-2) CK-MB (CK-2) % Troponin I Total Protein Total Protein (PEP) Albumin Albumin (PEP) Albumin/Globulin Ratio Xoylb-4-Yecpgvcjm Xggbs-3-Dtnvxyjcu Beta Globulins Gamma Globulins Tumor Marker AFP Carcinoembryonic Ag CA 19-9 Antigen Tumor Marker HCG Vitamin D 25-Hydroxy TSH Free T4 Free T3 PTH Intact Cortisol Urine Color Urine Clarity Urine pH Ur Specific [place] Urine Protein Urine Glucose (UA) Urine Ketones Urine Occult Blood Urine Nitrate Urine Bilirubin Urine Urobilinogen Ur Leukocyte Esterase Urine RBC Urine WBC Ur Squamous Epith Cells Urine Bacteria Urine Mucus Micro UA Comment Urine Culture Comments Urine Eosinophils Ur Random Creatinine Ur Random Sodium Nasal Screen MRSA (PCR) IgG IgA IgM Lyndon/Lambda Ratio Lyndon Light Chain Anal Lambda Light Chain Anal Hepatitis A IgM Ab Hep Bs Antigen Hep B Core IgM Ab Hep C IgG Ab 06/03/18 06/03/18 06/03/18 14:14 17:00 17:00 WBC 27.7 H RBC 3.63 L Hgb 9.8 L Hct 31.1 L MCV 85.6 MCH 27.1 MCHC 31.7 L RDW 16.9 Plt Count 43 L MPV 10.1 Prelim Diff (Auto) Neut % (Auto) Lymph % (Auto) [place] % (Auto) Eos % (Auto) Baso % (Auto) Neut # (Auto) Lymph # (Auto) [place] # (Auto) Eos # (Auto) Baso # (Auto) WBC Differential Seg Neuts % (Manual) Band Neuts % (Manual) Lymphocytes % (Manual) Monocytes % (Manual) Eosinophils % (Manual) Basophils % (Manual) Abs Neuts (Manual) Differential Comment Toxic Vacuolation Dohle Bodies Platelet Estimate Platelet Morphology Ovalocytes Acanthocytes (Spur) PT INR APTT Fibrinogen Puncture Site Patient Temperature O2 Saturation ABG pH ABG pCO2 ABG pO2 ABG HCO3 ABG O2 Content ABG Base Excess ABG Methemoglobin Marvin Test Hemoglobin Carboxyhemoglobin O2 Delivery Device Vent Setting Inspired O2 Critical Value Sodium 143 Potassium 3.5 Chloride 111 H Carbon Dioxide 14.8 L Anion Gap 17 H BUN 30 H Creatinine 2.65 H Estimated GFR 21 L POC Glucose 80 Random Glucose 66 L Lactic Acid Uric Acid Calcium 6.6 L* Prot Corrected Calcium 7.8 L D Phosphorus Magnesium Iron TIBC % Saturation Ferritin Total Bilirubin 1.1 H AST 457 H ALT 119 H Alkaline Phosphatase 77 Ammonia Lactate Dehydrogenase Total Creatine Kinase CK-MB (CK-2) CK-MB (CK-2) % Troponin I Total Protein 4.7 L Total Protein (PEP) Albumin 1.8 L Albumin (PEP) Albumin/Globulin Ratio Pycqd-1-Ddyckglpb Mhhtx-0-Hpboykeuh Beta Globulins Gamma Globulins Tumor Marker AFP Carcinoembryonic Ag CA 19-9 Antigen Tumor Marker HCG Vitamin D 25-Hydroxy TSH Free T4 Free T3 PTH Intact Cortisol Urine Color Urine Clarity Urine pH Ur Specific [place] Urine Protein Urine Glucose (UA) Urine Ketones Urine Occult Blood Urine Nitrate Urine Bilirubin Urine Urobilinogen Ur Leukocyte Esterase Urine RBC Urine WBC Ur Squamous Epith Cells Urine Bacteria Urine Mucus Micro UA Comment Urine Culture Comments Urine Eosinophils Ur Random Creatinine Ur Random Sodium Nasal Screen MRSA (PCR) IgG IgA IgM Lyndon/Lambda Ratio Lyndon Light Chain Anal Lambda Light Chain Anal Hepatitis A IgM Ab Hep Bs Antigen Hep B Core IgM Ab Hep C IgG Ab 06/03/18 06/03/18 06/03/18 17:00 17:00 19:27 WBC RBC Hgb Hct MCV MCH MCHC RDW Plt Count MPV Prelim Diff (Auto) Neut % (Auto) Lymph % (Auto) [place] % (Auto) Eos % (Auto) Baso % (Auto) Neut # (Auto) Lymph # (Auto) [place] # (Auto) Eos # (Auto) Baso # (Auto) WBC Differential Seg Neuts % (Manual) Band Neuts % (Manual) Lymphocytes % (Manual) Monocytes % (Manual) Eosinophils % (Manual) Basophils % (Manual) Abs Neuts (Manual) Differential Comment Toxic Vacuolation Dohle Bodies Platelet Estimate Platelet Morphology Ovalocytes Acanthocytes (Spur) PT INR APTT Fibrinogen Puncture Site Patient Temperature O2 Saturation ABG pH ABG pCO2 ABG pO2 ABG HCO3 ABG O2 Content ABG Base Excess ABG Methemoglobin Marvin Test Hemoglobin Carboxyhemoglobin O2 Delivery Device Vent Setting Inspired O2 Critical Value Sodium Potassium Chloride Carbon Dioxide Anion Gap BUN Creatinine Estimated GFR POC Glucose 50 L Random Glucose Lactic Acid 5.9 H* Uric Acid Calcium Prot Corrected Calcium Phosphorus Magnesium Iron TIBC % Saturation Ferritin Total Bilirubin AST ALT Alkaline Phosphatase Ammonia Lactate Dehydrogenase Total Creatine Kinase 2524 H CK-MB (CK-2) 43.7 H CK-MB (CK-2) % 1.7 Troponin I Total Protein Total Protein (PEP) Albumin Albumin (PEP) Albumin/Globulin Ratio Baamx-8-Lbvipyhhi Dwryh-5-Fwledwady Beta Globulins Gamma Globulins Tumor Marker AFP Carcinoembryonic Ag CA 19-9 Antigen Tumor Marker HCG Vitamin D 25-Hydroxy TSH Free T4 Free T3 PTH Intact Cortisol Urine Color Urine Clarity Urine pH Ur Specific [place] Urine Protein Urine Glucose (UA) Urine Ketones Urine Occult Blood Urine Nitrate Urine Bilirubin Urine Urobilinogen Ur Leukocyte Esterase Urine RBC Urine WBC Ur Squamous Epith Cells Urine Bacteria Urine Mucus Micro UA Comment Urine Culture Comments Urine Eosinophils Ur Random Creatinine Ur Random Sodium Nasal Screen MRSA (PCR) IgG IgA IgM Lyndon/Lambda Ratio Lyndon Light Chain Anal Lambda Light Chain Anal Hepatitis A IgM Ab Hep Bs Antigen Hep B Core IgM Ab Hep C IgG Ab 06/03/18 06/03/18 06/03/18 20:00 22:45 22:45 WBC RBC Hgb Hct MCV MCH MCHC RDW Plt Count MPV Prelim Diff (Auto) Neut % (Auto) Lymph % (Auto) [place] % (Auto) Eos % (Auto) Baso % (Auto) Neut # (Auto) Lymph # (Auto) [place] # (Auto) Eos # (Auto) Baso # (Auto) WBC Differential Seg Neuts % (Manual) Band Neuts % (Manual) Lymphocytes % (Manual) Monocytes % (Manual) Eosinophils % (Manual) Basophils % (Manual) Abs Neuts (Manual) Differential Comment Toxic Vacuolation Dohle Bodies Platelet Estimate Platelet Morphology Ovalocytes Acanthocytes (Spur) PT INR APTT Fibrinogen Puncture Site Patient Temperature O2 Saturation ABG pH ABG pCO2 ABG pO2 ABG HCO3 ABG O2 Content ABG Base Excess ABG Methemoglobin Marvin Test Hemoglobin Carboxyhemoglobin O2 Delivery Device Vent Setting Inspired O2 Critical Value Sodium Potassium Chloride Carbon Dioxide Anion Gap BUN Creatinine Estimated GFR POC Glucose 136 H Random Glucose Lactic Acid Uric Acid Calcium Prot Corrected Calcium Phosphorus Magnesium Iron TIBC % Saturation Ferritin Total Bilirubin AST ALT Alkaline Phosphatase Ammonia Lactate Dehydrogenase Total Creatine Kinase CK-MB (CK-2) CK-MB (CK-2) % Troponin I Total Protein Total Protein (PEP) Albumin Albumin (PEP) Albumin/Globulin Ratio Ywhdb-1-Tewtoyhmq Qvhdz-5-Xffxuazoc Beta Globulins Gamma Globulins Tumor Marker AFP Carcinoembryonic Ag CA 19-9 Antigen Tumor Marker HCG Vitamin D 25-Hydroxy TSH Free T4 Free T3 PTH Intact Cortisol Urine Color Urine Clarity Urine pH Ur Specific [place] Urine Protein Urine Glucose (UA) Urine Ketones Urine Occult Blood Urine Nitrate Urine Bilirubin Urine Urobilinogen Ur Leukocyte Esterase Urine RBC Urine WBC Ur Squamous Epith Cells Urine Bacteria Urine Mucus Micro UA Comment Urine Culture Comments Urine Eosinophils Rare H Ur Random Creatinine Less than 5 L Ur Random Sodium 141 Nasal Screen MRSA (PCR) IgG IgA IgM Lyndon/Lambda Ratio Lyndon Light Chain Anal Lambda Light Chain Anal Hepatitis A IgM Ab Hep Bs Antigen Hep B Core IgM Ab Hep C IgG Ab 06/04/18 06/04/18 06/04/18 00:28 04:00 04:00 WBC 25.2 H RBC 3.31 L Hgb 9.0 L Hct 27.7 L MCV 83.6 MCH 27.2 MCHC 32.5 RDW 17.4 H Plt Count 33 L MPV 10.8 Prelim Diff (Auto) Manual diff required Neut % (Auto) Lymph % (Auto) [place] % (Auto) Eos % (Auto) Baso % (Auto) Neut # (Auto) Lymph # (Auto) [place] # (Auto) Eos # (Auto) Baso # (Auto) WBC Differential Manual diff final Seg Neuts % (Manual) 79 H Band Neuts % (Manual) 14 H Lymphocytes % (Manual) 4 L Monocytes % (Manual) 2 Eosinophils % (Manual) 1 Basophils % (Manual) Abs Neuts (Manual) 23.4 H Differential Comment . Toxic Vacuolation Present H Dohle Bodies Present H Platelet Estimate Low L Platelet Morphology Normal Ovalocytes Acanthocytes (Spur) 3+ H PT INR APTT Fibrinogen Puncture Site Patient Temperature O2 Saturation ABG pH ABG pCO2 ABG pO2 ABG HCO3 ABG O2 Content ABG Base Excess ABG Methemoglobin Marvin Test Hemoglobin Carboxyhemoglobin O2 Delivery Device Vent Setting Inspired O2 Critical Value Sodium 142 Potassium 3.4 L Chloride 111 H Carbon Dioxide 13.5 L Anion Gap 18 H BUN 31 H Creatinine 2.93 H Estimated GFR 18 L POC Glucose 93 Random Glucose 76 Lactic Acid Uric Acid Calcium 6.6 L* Prot Corrected Calcium 8.0 L Phosphorus Magnesium Iron TIBC % Saturation Ferritin Total Bilirubin 1.2 H AST 358 H ALT 109 H Alkaline Phosphatase 88 Ammonia Lactate Dehydrogenase Total Creatine Kinase CK-MB (CK-2) CK-MB (CK-2) % Troponin I Total Protein 4.4 L Total Protein (PEP) Albumin 1.6 L Albumin (PEP) Albumin/Globulin Ratio Mfbjy-8-Yhjjuqvfv Sqzbd-5-Srxrwhobf Beta Globulins Gamma Globulins Tumor Marker AFP Carcinoembryonic Ag CA 19-9 Antigen Tumor Marker HCG Vitamin D 25-Hydroxy TSH Free T4 Free T3 PTH Intact Cortisol Urine Color Urine Clarity Urine pH Ur Specific [place] Urine Protein Urine Glucose (UA) Urine Ketones Urine Occult Blood Urine Nitrate Urine Bilirubin Urine Urobilinogen Ur Leukocyte Esterase Urine RBC Urine WBC Ur Squamous Epith Cells Urine Bacteria Urine Mucus Micro UA Comment Urine Culture Comments Urine Eosinophils Ur Random Creatinine Ur Random Sodium Nasal Screen MRSA (PCR) IgG IgA IgM Lyndon/Lambda Ratio Lyndon Light Chain Anal Lambda Light Chain Anal Hepatitis A IgM Ab Hep Bs Antigen Hep B Core IgM Ab Hep C IgG Ab 06/04/18 06/04/18 06/04/18 04:00 04:00 04:30 WBC RBC Hgb Hct MCV MCH MCHC RDW Plt Count MPV Prelim Diff (Auto) Neut % (Auto) Lymph % (Auto) [place] % (Auto) Eos % (Auto) Baso % (Auto) Neut # (Auto) Lymph # (Auto) [place] # (Auto) Eos # (Auto) Baso # (Auto) WBC Differential Seg Neuts % (Manual) Band Neuts % (Manual) Lymphocytes % (Manual) Monocytes % (Manual) Eosinophils % (Manual) Basophils % (Manual) Abs Neuts (Manual) Differential Comment Toxic Vacuolation Dohle Bodies Platelet Estimate Platelet Morphology Ovalocytes Acanthocytes (Spur) PT INR APTT Fibrinogen Puncture Site Patient Temperature O2 Saturation ABG pH ABG pCO2 ABG pO2 ABG HCO3 ABG O2 Content ABG Base Excess ABG Methemoglobin Marvin Test Hemoglobin Carboxyhemoglobin O2 Delivery Device Vent Setting Inspired O2 Critical Value Sodium 141 Potassium 3.3 L Chloride 111 H Carbon Dioxide 13.2 L Anion Gap 17 H BUN 31 H Creatinine 2.91 H Estimated GFR 19 L POC Glucose 64 L Random Glucose 78 Lactic Acid Uric Acid Calcium 6.7 L* Prot Corrected Calcium Phosphorus 2.5 Magnesium Iron 31 L TIBC 192 L % Saturation 16.2 L Ferritin 346 H Total Bilirubin AST ALT Alkaline Phosphatase Ammonia Lactate Dehydrogenase Total Creatine Kinase CK-MB (CK-2) CK-MB (CK-2) % Troponin I Total Protein Total Protein (PEP) 4.4 L Albumin 1.5 L Albumin (PEP) 2.30 L Albumin/Globulin Ratio 1.01 L Vxlwz-2-Uswqplmwr 0.25 Zykzi-0-Brviaxern 0.46 Beta Globulins 0.41 L Gamma Globulins 0.98 Tumor Marker AFP Carcinoembryonic Ag CA 19-9 Antigen Tumor Marker HCG Vitamin D 25-Hydroxy 28.9 L TSH Free T4 Free T3 PTH Intact 229.0 H Cortisol Urine Color Urine Clarity Urine pH Ur Specific [place] Urine Protein Urine Glucose (UA) Urine Ketones Urine Occult Blood Urine Nitrate Urine Bilirubin Urine Urobilinogen Ur Leukocyte Esterase Urine RBC Urine WBC Ur Squamous Epith Cells Urine Bacteria Urine Mucus Micro UA Comment Urine Culture Comments Urine Eosinophils Ur Random Creatinine Ur Random Sodium Nasal Screen MRSA (PCR) IgG 807 IgA 224 IgM 30 L Lyndon/Lambda Ratio 1.99 Lyndon Light Chain Anal 229 Lambda Light Chain Anal 115 Hepatitis A IgM Ab Hep Bs Antigen Hep B Core IgM Ab Hep C IgG Ab 06/04/18 06/04/18 06/04/18 04:51 08:31 08:31 WBC RBC Hgb Hct MCV MCH MCHC RDW Plt Count MPV Prelim Diff (Auto) Neut % (Auto) Lymph % (Auto) [place] % (Auto) Eos % (Auto) Baso % (Auto) Neut # (Auto) Lymph # (Auto) [place] # (Auto) Eos # (Auto) Baso # (Auto) WBC Differential Seg Neuts % (Manual) Band Neuts % (Manual) Lymphocytes % (Manual) Monocytes % (Manual) Eosinophils % (Manual) Basophils % (Manual) Abs Neuts (Manual) Differential Comment Toxic Vacuolation Dohle Bodies Platelet Estimate Platelet Morphology Ovalocytes Acanthocytes (Spur) PT 14.3 H INR 1.4 APTT 46.7 H Fibrinogen Puncture Site Patient Temperature O2 Saturation ABG pH ABG pCO2 ABG pO2 ABG HCO3 ABG O2 Content ABG Base Excess ABG Methemoglobin Marvin Test Hemoglobin Carboxyhemoglobin O2 Delivery Device Vent Setting Inspired O2 Critical Value Sodium Potassium Chloride Carbon Dioxide Anion Gap BUN Creatinine Estimated GFR POC Glucose 133 H Random Glucose Lactic Acid 4.5 H* Uric Acid Calcium Prot Corrected Calcium Phosphorus Magnesium Iron TIBC % Saturation Ferritin Total Bilirubin AST ALT Alkaline Phosphatase Ammonia Lactate Dehydrogenase Total Creatine Kinase CK-MB (CK-2) CK-MB (CK-2) % Troponin I Total Protein Total Protein (PEP) Albumin Albumin (PEP) Albumin/Globulin Ratio Xbzqe-7-Hqyhoupbx Aiqre-6-Jiewcsxyp Beta Globulins Gamma Globulins Tumor Marker AFP Carcinoembryonic Ag CA 19-9 Antigen Tumor Marker HCG Vitamin D 25-Hydroxy TSH Free T4 Free T3 PTH Intact Cortisol Urine Color Urine Clarity Urine pH Ur Specific [place] Urine Protein Urine Glucose (UA) Urine Ketones Urine Occult Blood Urine Nitrate Urine Bilirubin Urine Urobilinogen Ur Leukocyte Esterase Urine RBC Urine WBC Ur Squamous Epith Cells Urine Bacteria Urine Mucus Micro UA Comment Urine Culture Comments Urine Eosinophils Ur Random Creatinine Ur Random Sodium Nasal Screen MRSA (PCR) IgG IgA IgM Lyndon/Lambda Ratio Lyndon Light Chain Anal Lambda Light Chain Anal Hepatitis A IgM Ab Hep Bs Antigen Hep B Core IgM Ab Hep C IgG Ab 06/04/18 06/04/18 06/04/18 08:31 09:32 10:14 WBC RBC Hgb Hct MCV MCH MCHC RDW Plt Count MPV Prelim Diff (Auto) Neut % (Auto) Lymph % (Auto) [place] % (Auto) Eos % (Auto) Baso % (Auto) Neut # (Auto) Lymph # (Auto) [place] # (Auto) Eos # (Auto) Baso # (Auto) WBC Differential Seg Neuts % (Manual) Band Neuts % (Manual) Lymphocytes % (Manual) Monocytes % (Manual) Eosinophils % (Manual) Basophils % (Manual) Abs Neuts (Manual) Differential Comment Toxic Vacuolation Dohle Bodies Platelet Estimate Platelet Morphology Ovalocytes Acanthocytes (Spur) PT INR APTT Fibrinogen 317 Puncture Site Right brachial Patient Temperature 98.6 O2 Saturation 97 ABG pH 7.39 ABG pCO2 24 L* ABG pO2 183 H ABG HCO3 14 L* ABG O2 Content 15.0 ABG Base Excess -9.8 L ABG Methemoglobin 1.5 Marvin Test Hemoglobin 10.7 L Carboxyhemoglobin 0.7 O2 Delivery Device Ventilator Vent Setting Prvc 22/520/5+/0.9it Inspired O2 45 Critical Value Yes Sodium Potassium Chloride Carbon Dioxide Anion Gap BUN Creatinine Estimated GFR POC Glucose 78 Random Glucose Lactic Acid Uric Acid Calcium Prot Corrected Calcium Phosphorus Magnesium Iron TIBC % Saturation Ferritin Total Bilirubin AST ALT Alkaline Phosphatase Ammonia Lactate Dehydrogenase Total Creatine Kinase CK-MB (CK-2) CK-MB (CK-2) % Troponin I Total Protein Total Protein (PEP) Albumin Albumin (PEP) Albumin/Globulin Ratio Iqsfj-7-Tqezszjeb Sztbg-3-Xojiyzaam Beta Globulins Gamma Globulins Tumor Marker AFP Carcinoembryonic Ag CA 19-9 Antigen Tumor Marker HCG Vitamin D 25-Hydroxy TSH Free T4 Free T3 PTH Intact Cortisol Urine Color Urine Clarity Urine pH Ur Specific [place] Urine Protein Urine Glucose (UA) Urine Ketones Urine Occult Blood Urine Nitrate Urine Bilirubin Urine Urobilinogen Ur Leukocyte Esterase Urine RBC Urine WBC Ur Squamous Epith Cells Urine Bacteria Urine Mucus Micro UA Comment Urine Culture Comments Urine Eosinophils Ur Random Creatinine Ur Random Sodium Nasal Screen MRSA (PCR) IgG IgA IgM Lyndon/Lambda Ratio Lyndon Light Chain Anal Lambda Light Chain Anal Hepatitis A IgM Ab Hep Bs Antigen Hep B Core IgM Ab Hep C IgG Ab 06/04/18 06/04/18 06/05/18 14:51 18:26 10:50 WBC 20.5 H RBC 3.06 L Hgb 8.2 L Hct 25.2 L MCV 82.2 MCH 26.8 L MCHC 32.6 RDW 17.4 H Plt Count 20 L D MPV 11.2 H Prelim Diff (Auto) Slide review pending Neut % (Auto) 87.4 H Lymph % (Auto) 6.4 L [place] % (Auto) 4.8 Eos % (Auto) 1.0 Baso % (Auto) 0.4 Neut # (Auto) 17.9 H Lymph # (Auto) 1.3 [place] # (Auto) 1.0 H Eos # (Auto) 0.2 Baso # (Auto) 0.1 WBC Differential Seg Neuts % (Manual) Band Neuts % (Manual) Lymphocytes % (Manual) Monocytes % (Manual) Eosinophils % (Manual) Basophils % (Manual) Abs Neuts (Manual) Differential Comment . Toxic Vacuolation Dohle Bodies Platelet Estimate Platelet Morphology Ovalocytes Acanthocytes (Spur) PT INR APTT Fibrinogen Puncture Site Patient Temperature O2 Saturation ABG pH ABG pCO2 ABG pO2 ABG HCO3 ABG O2 Content ABG Base Excess ABG Methemoglobin Marvin Test Hemoglobin Carboxyhemoglobin O2 Delivery Device Vent Setting Inspired O2 Critical Value Sodium Potassium Chloride Carbon Dioxide Anion Gap BUN Creatinine Estimated GFR POC Glucose 71 57 L Random Glucose Lactic Acid Uric Acid Calcium Prot Corrected Calcium Phosphorus Magnesium Iron TIBC % Saturation Ferritin Total Bilirubin AST ALT Alkaline Phosphatase Ammonia Lactate Dehydrogenase Total Creatine Kinase CK-MB (CK-2) CK-MB (CK-2) % Troponin I Total Protein Total Protein (PEP) Albumin Albumin (PEP) Albumin/Globulin Ratio Yakme-7-Foqwmrmig Jktpn-7-Dhcsqdbyl Beta Globulins Gamma Globulins Tumor Marker AFP Carcinoembryonic Ag CA 19-9 Antigen Tumor Marker HCG Vitamin D 25-Hydroxy TSH Free T4 Free T3 PTH Intact Cortisol Urine Color Urine Clarity Urine pH Ur Specific [place] Urine Protein Urine Glucose (UA) Urine Ketones Urine Occult Blood Urine Nitrate Urine Bilirubin Urine Urobilinogen Ur Leukocyte Esterase Urine RBC Urine WBC Ur Squamous Epith Cells Urine Bacteria Urine Mucus Micro UA Comment Urine Culture Comments Urine Eosinophils Ur Random Creatinine Ur Random Sodium Nasal Screen MRSA (PCR) IgG IgA IgM Lyndon/Lambda Ratio Lyndon Light Chain Anal Lambda Light Chain Anal Hepatitis A IgM Ab Hep Bs Antigen Hep B Core IgM Ab Hep C IgG Ab Result Diagrams: 06/05/18 10:50 06/04/18 04:00 Microbiology: Microbiology 06/02/18 08:30 Aerobic Blood Culture - Final Blood - Peripheral Proteus mirabilis Anaerobic Blood Culture - Final Proteus mirabilis 06/02/18 08:20 Aerobic Blood Culture - Final Blood - Peripheral Proteus mirabilis Anaerobic Blood Culture - Final Proteus mirabilis 06/03/18 18:30 Gram Stain - Final Sputum - Endotracheal Sputum Culture - Final Moderate growth normal respiratory adrian 06/03/18 12:16 Aerobic Blood Culture - Preliminary Blood - Peripheral No growth in 2 days Anaerobic Blood Culture - Preliminary No growth in 2 days 06/03/18 12:08 Aerobic Blood Culture - Preliminary Blood - Peripheral No growth in 2 days Anaerobic Blood Culture - Preliminary No growth in 2 days 06/03/18 02:10 Gram Stain - Final Sputum - Endotracheal Sputum Culture - Preliminary Light growth normal respiratory adrian at 24 hours 06/02/18 09:00 Urine Culture - Final Catheterized Urine Proteus mirabilis 06/03/18 03:45 Influenza Types A,B Antigen - Final Nasal Aspirate Negative for FLU A and B antigen Infection due to influenza A or B cannot be ruled out since the antigen present in the sample may be below the detection limit of the test. Imaging: Impressions Head CT 06/02/18 20:37 CONCLUSION: 1. Limited study without evidence of an acute intracranial abnormality. 2. Chronic white matter changes are again noted. Abdomen Ultrasound 06/03/18 00:00 CONCLUSION: 1. Bilateral echogenic kidneys consistent with medical renal disease. There is mild distention of the left collecting system. 2. Complex cystic area seen in the left lobe of the liver. This is fairly benign features and is thought could be followed. 3. Dilatation of the central intrahepatic biliary ducts. This may reflect a reservoir phenomenon following cholecystectomy. The common bile duct is not dilated. Abdomen/Pelvis CT 06/03/18 00:00 CONCLUSION: No evidence of acute abdominal or pelvic process. No masses are identified. There is no evidence of abscess. Venous Doppler Study 06/04/18 00:00 CONCLUSION: No evidence of deep venous thrombosis. Procedures: 06/02-left IJ central line 06/02-intubation Assessment and Plan - Disease Oriented Problem List (1) Acute respiratory failure (2) Sepsis (3) UTI (urinary tract infection) (4) Metabolic encephalopathy (5) Acute kidney failure (6) Hypernatremia (7) Thrombocytopenia (8) Parkinson disease (9) COPD (chronic obstructive pulmonary disease) (10) Obstructive sleep apnea (11) GERD (gastroesophageal reflux disease) (12) Transaminitis (13) Elevated TSH Pertinent Non-Medical Issues: Psychosocial: Lives in [place] for most of her life. 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 Well supported by 2 siblings, as well as 6 adult children. Spiritual: Religion vanesa, well supported by battery vent plug inserter from their [place] community Legal:Patient due to clinical condition is unable to participate in decision- making. Does not appear she will regain ability to participate. . She is supported by 6 adult children whom are all working together in decision- making. They think she may have healthcare surrogate designation naming 1 of the daughters though they cannot locate it at this time, and indicate they are all working together. Ethical issues impacting care: No ethical issues identified Important Contacts: andrzej Oliveira [phone] (lives with patient) Other children: Son Pantera Son Navi Son Colton Son Huey Daughter Margie Prognosis: This patient was admitted for altered mental status, fever and lethargy. She has acute sepsis, septic shock, renal failure. Possible DIC. Condition is critical. Very high risk for continued complications and deterioration and possible . Code Status: No Code DNR Plan: Legal decision maker:Patient due to clinical condition is unable to participate in decision-making. Does not appear she will regain ability to participate. . She is supported by 6 adult children whom are all working together in decision-making. They think she may have healthcare surrogate designation naming 1 of the daughters though they cannot locate it at this time, and indicate they are all working together. Goals: Met with 5 adult children at bedside. They indicate they have discussed as a family, and wish to proceed with compassionate withdrawal of life support today , at 6pm. They express that pt would not want to continue with artificial measures, would NOT want dialysis. Review anticipatory guidance/process. They voice understanding. D/w primary nurse, attending. Palliative Will plan to enter withdrawal orders at 5pm to have everything in place for 6pm anticipated withdrawal. CODE STATUS: DNR SYMPTOMS: --Pain-patient reported with chronic pain syndromes to her back previously had a spinal stimulator implant in the . She has had chronic back pain since that time. Additional sources would include now bedbound status, multiple recent invasive procedures. not currently on pain medication - has fentanyl drip available has not been administered. Cont to evaluate for discomfort/pain ss/sx --Dyspnea-underlying history of COPD, possible obstructive sleep apnea. Intubated for airway protection. Currently breathing comfortably on mechanical vent. has been ordered for fentanyl, diprivan but has not required --Anxiety-potential for related to acute hospitalization multiple invasive procedures now mechanical vent. Currently appears comfortable on mechanical vent, minimally responsive to exam. Palliative care will continue to follow during hospital course as condition evolves, to assist patient/decision-maker with understanding of medical conditions, weighing benefits/burdens of treatment options, for clarification of goals of treatment. Additionally will assist with any symptoms of palliative concern Time Spent Total Floor Time (mins): 25 (chart review, PE, d/w family , d/w jeanna, attending, ID ) Attestation Attestation: To help prompt me to consider important information that might be impacting today's encounter and assessment, information from prior notes written by myself or my colleagues may have been "brought forward" into today's note. My signature on this note, however, is an attestation that I personally performed the exam, history, and/or decision-making noted today, and, unless otherwise indicated, the interactions with patient, family, and staff as well as the review of records all occurred today. I also attest that the listed assessment and stated plan reflect my best clinical judgment today based on the combination of historical information, prior notes, and today's exam/ interactions. When time spent is documented, it refers only to time spent today by the signer, or if indicated, combined time spent today by collaborating physician/nurse practitioner.
[2018-06-05 12:43] LABS: Dohle Bodies Present; Lymphocytes 3 % (9-44); Monocytes 5 % (0-8); Platelet Estimate Rare (Normal); Platelet Morphology Normal (Normal); Tallied Nucleated RBC 1 (0-0); Toxic Vacuolation Present
--- NOTE | 2018-06-05 16:01 | P.PNCC ---
Subjective Subjective Remarks/Hospital Course: 06/02: This is a 82-year-old aa female. Date of admission 06/02/2018. Date of consultation 06/02/2018. Past medical history includes Parkinson's disease, history of TIA, severe spinal stenosis, hypertension, hyperlipidemia, JULI, COPD , hiatal hernia, gastroesophageal reflux disease and depression. He has LVH and chronic low back pain. She presented to [place] today secondary to altered mental status. According to records, patient was having difficulty breathing yesterday which resolved after nebulizer treatment 3. She has had a fever which resolved with acetaminophen. She has noticed increasing secretions. In the ED, workup showed no acute findings. Patient was given vancomycin Pipracil/tazobactam and ceftriaxone. Blood cultures 2 and UA currently are pending at time of dictation. CT of the thorax were performed which revealed right basilar subpleural airspace disease, distended fluid-filled esophagus, a dorsal column stimulator and a 4.5 cm mass within the left hepatic lobe. Patient was hypoglycemic on admission and remained apical to be altered. Recent blood sugar was 33. She became hypotensive. A central line was emergently placed she was emergently intubated for airway protection. She is currently on norepinephrine drip at 12 mg/min and received vancomycin Pipracil/ tazobactam. 06/03: Remains orally intubated on mechanical ventilation on Levophed for pressor support. And uric despite fluid boluses. Nephrology consult requested. CT abdomen does not show any evidence of hydronephrosis. 06/04: Remains encephalopathic, orally intubated on mechanical ventilation. Gram -negative bacteremia on blood cultures noted. Patient remains on 6 mics of Levophed as well as low-dose vasopressin for pressor support. Has not had any urine output since yesterday morning. Worsening mottling noted over lower extremities extending up to the thighs. Worsening platelet count and metabolic acidosis. 06/05: Remains encephalopathic, orally intubated on mechanical ventilation. Family planning on de-escalation of therapy with terminal wean and comfort measures later today for palliative care. Objective Vital Signs / I&O: Vital Signs 06/04/18 16:00 06/04/18 16:16 06/04/18 18:00 Temperature 99.1 F Pulse Rate 96 H 96 H Respiratory Rate 25 H 22 Blood Pressure 143/64 H Pulse Oximetry 100 100 06/04/18 19:24 06/04/18 20:00 06/04/18 22:00 Temperature Pulse Rate 96 H 83 Respiratory Rate 22 Blood Pressure Pulse Oximetry 100 100 06/04/18 23:31 06/05/18 02:00 06/05/18 03:20 Temperature Pulse Rate 65 96 H Respiratory Rate 23 Blood Pressure 140/64 Pulse Oximetry 100 100 06/05/18 03:30 06/05/18 03:40 06/05/18 03:50 Temperature Pulse Rate 96 H 95 H 96 H Respiratory Rate 22 Blood Pressure 123/60 118/57 L 128/59 L Pulse Oximetry 100 100 100 06/05/18 04:00 06/05/18 04:10 06/05/18 04:20 Temperature Pulse Rate 96 H 96 H 95 H Respiratory Rate Blood Pressure 119/59 L 121/60 130/61 Pulse Oximetry 100 100 100 06/05/18 04:30 06/05/18 04:40 06/05/18 04:50 Temperature Pulse Rate 93 H 94 H 95 H Respiratory Rate Blood Pressure 117/59 L 134/63 129/62 Pulse Oximetry 100 100 100 06/05/18 05:00 06/05/18 05:10 06/05/18 05:20 Temperature Pulse Rate 94 H 95 H 96 H Respiratory Rate Blood Pressure 137/57 L 127/63 132/65 Pulse Oximetry 100 100 100 06/05/18 05:30 06/05/18 05:40 06/05/18 05:50 Temperature Pulse Rate 95 H 94 H 95 H Respiratory Rate Blood Pressure 122/61 134/62 130/59 L Pulse Oximetry 100 100 100 06/05/18 06:00 06/05/18 06:10 06/05/18 06:20 Temperature Pulse Rate 94 H 93 H 93 H Respiratory Rate Blood Pressure 133/60 124/55 L 120/58 L Pulse Oximetry 100 100 100 06/05/18 06:30 06/05/18 06:40 06/05/18 06:50 Temperature Pulse Rate 93 H 94 H 93 H Respiratory Rate Blood Pressure 132/63 140/63 133/60 Pulse Oximetry 100 100 100 06/05/18 07:00 06/05/18 07:10 06/05/18 07:20 Temperature Pulse Rate 93 H 92 H 93 H Respiratory Rate Blood Pressure 126/60 131/61 126/57 L Pulse Oximetry 100 100 100 06/05/18 08:00 06/05/18 09:00 06/05/18 10:00 Temperature 98 F Pulse Rate 92 H 92 H 92 H Respiratory Rate 22 Blood Pressure 143/63 H Pulse Oximetry 100 06/05/18 12:00 06/05/18 14:00 06/05/18 15:50 Temperature 98.3 F Pulse Rate 93 H 93 H Respiratory Rate 22 Blood Pressure 134/65 Pulse Oximetry Intake & Output 06/04/18 06/05/18 06/05/18 18:59 06:59 18:59 Intake Total 420 / 420 1000 / 1000 1000 / 1000 Output Total 50 / 50 Balance 420 / 420 950 / 950 1000 / 1000 Intake: IV 300 / 300 1000 / 1000 1000 / 1000 Sodium Bicarbonate 8.4% Inj 150 1000 / 1000 1000 / 1000 MEQ In D5W Inj 850 ML @ 100 mls/hr IV.CONT .Q10H KLAUDIA Rx#: [id number] Pitressin Inj 40 UNIT In NS Inj 100 / 100 98 ML @ 0.04 UNITS/MIN 6 mls/ hr IV.CONT CONT KLAUDIA Rx#: [id number] Teflaro Inj 600 MG In NS Inj 100 / 100 100 ML @ 100 mls/hr IV.SIG Q8H KLAUDIA Rx#:[id number] Merrem Inj 500 MG In NS Inj 100 100 / 100 ML @ 200 mls/hr IV.SIG Q12H KLAUDIA Rx#:[id number] Oral 0 / 0 Tube Feeding 0 / 0 Tube Irrigant 60 / 60 Water Bolus Amount 60 / 60 Output: Urine 50 / 50 Other: Date of Last Bowel Movement 06/04/18 06/04/18 Weight On Admission 70.2 kg Result Diagrams: 06/05/18 10:50 06/05/18 10:50 Objective Remarks: HEENT/ Neuro: Encephalopathic/comatose, orally intubated, Pallor present, no icterus, tongue/ mucosa moist Neck: No JVD Chest/Pulm: on mech vent, good air entry bilaterally, no wheezing or crackles CVS: S1-S2 regular, no murmur GI/abdomen: soft, nontender, bowel sounds sluggish Extremities: Mottling noted over bilateral lower extremities more on the thighs and legs. Legs feel cool distally. Dopplerable pulses bilaterally. Assessment and Plan - Assessment and Plan Plan: Neuro/Psych: Acute toxic metabolic encephalopathy History of TIAs Parkinson's disease Written for propofol/fentanyl drip for sedation/analgesia while intubated however has not required any sedation and remains encephalopathic Goal of RASS -2 Daily sedation vacation Acetaminophen 650 mg by tube every 6 hours as needed fever CT brain 06/02 revealed no acute intracranial findings Holding escitalopram 10 mg daily/home medication. Holding gabapentin 600 mg 3 times daily. Hold aspirin in view of worsening thrombocytopenia CV: Septic shock History of essential hypertension History of hyperlipidemia Lactic acidosis History of LVH Continue IV fluids. Switched to bicarb drip due to metabolic acidosis Norepinephrine/vasopressin gtt. to maintain mean arterial pressure greater than equal to 92% Serial lactates 2D echo 2010 revealed LVH. EF 55 6%. Diastolic dysfunction. Mild thickening aortic valve and mitral valve. Resp: Acute hypoxemic respiratory failure History of COPD Obstructive sleep apnea on CPAP at night Continue mechanical ventilation, Ventilator bundle Albuterol/ipratropium aerosols every 4 hours with albuterol aerosols every [address] thorax revealed right basilar subpleural airspace disease and small pleural effusion. No masses. GI: Gastroesophageal reflux disease Hiatal hernia 4.5 cm left hepatic mass Transaminitis Patient is on omeprazole 20 mg daily at home. Holding megestrol 40 mg twice daily NGT to LIWS Lansoprazole for GI prophylaxis Docusate sodium/senna 1 tablet for bowel regimen Checking tumor markers CEA, CA-19-9, alpha-fetoprotein and hCG CT abdomen/pelvis revealed a 4.5 cm left hepatic mass : English catheter for accurate I's and O's in a critically ill patient Endo: Hypoglycemia Elevated TSH Sliding scale insulin with Accu-Cheks to maintain euglycemia/every 4 hours low protocol aspart insulin TSH is elevated at 5.7. Check free T4/T3 Started stress dose steroids in view of high pressor requirement. Cortisol level greater than 40. Discontinued Levemir which is ordered on admission. Renal: SCOUT In anuric renal failure. CT abdomen pelvis did not reveal any evidence of obstruction/hydronephrosis. Remains anuric despite multiple fluid boluses. Nephrology consult requested. Patient may need renal replacement therapy. Strict intake output, monitor and replete electrolyte, follow BUN/creatinine. Bicarb drip ordered for metabolic acidosis. Heme: Thrombocytopenia Suspected DIC Monitor CBC daily. Follow trends Check PT/INR PTT and fibrinogen to evaluate for DIC ID: Septic shock Gram-negative bacteremia UTI . ID following Started vancomycin and piperacillin/tazobactam on 06/02 06/02 Blood cultures 2 with gram-negative rods, 06/02 Urine culture Proteus MSK: Severe spinal stenosis with a history of dorsal column stimulator Ordered lower extremity venous Dopplers as well as arterial Dopplers to evaluate for venous/arterial thrombosis. Access -left IJ CVL (06/02) Prophylaxis -GI -lansoprazole -DVT -SCDs Had a long discussion with patient's daughter at bedside on 06/03 regarding critical condition including possible need for renal replacement therapy though not sure if patient will tolerate hemodialysis. Palliative care discussing de-escalation of therapy and comfort measures with family. Family has decided regarding proceeding with comfort measures only and terminal wean later today. Prognosis appears poor. 35 minutes critical care time
[2018-06-05] MEDS ORDERED: HYDROmorphone PF Inj 1 MG/ML Ampul IV.PUSH ONE ×2 (17:15)
[2018-06-05] MEDS ORDERED: Hyoscyamine Inj 0.5 MG/ML Ampul IV.PUSH ONE (17:15)
[2018-06-05] MEDS ORDERED: HYDROmorphone PF Inj 2 MG/ML Vial IV.PUSH SCH (18:00)
[2018-06-05] MEDS ORDERED: HYDROmorphone PF Inj 1 MG/ML Ampul IV.PUSH PRN ×2 (18:00)
[2018-06-05] MEDS ORDERED: HYDROmorphone PF Inj 1 MG/ML Ampul IV.PUSH SCH (18:00)
[2018-06-05] MEDS ORDERED: HYDROmorphone PF Inj 2 MG/ML Vial IV.PUSH PRN (18:00)
[2018-06-05] MEDS ORDERED: Hyoscyamine Inj 0.5 MG/ML Ampul IV.PUSH PRN (18:00)
[2018-06-05] MEDS: HYDROmorphone PF Inj 2 MG/ML Vial IV.PUSH PRN ×4 (18:35→22:42)
[2018-06-06] MEDS: Heparin - SQ 10,000 UNITS/ML Vial SQ SCH (00:21)
[2018-06-06] MEDS: Chlorhexidine 0.12% Oral Kit 15 ML UDC OROPHARYNG SCH ×2 (00:21)
[2018-06-06] MEDS: Hypromellose 0.3% Opth Gel 10 GM Bottle EACH EYE SCH (06:34)
[2018-06-06] MEDS: Oral Hygiene Kit OROPHARYNG SCH (06:34)
--- NOTE | 2018-07-23 08:24 | P.DN ---
Discharge Sum: Prov - Provider Primary care physician: Sergio Tinsley Admitting clinician: Marcel Doherty Consults: 06/03/18 07:44 Consult to Infectious Diseases Routine Consulting Provider: Edna Holcomb Reason for Consultation: septic shock Notified:: Service Spoke with:: Jyoti Date Notified:: 06/03/18 Time Notified:: 08:20 Ordering Provider: CTAY 06/03/18 14:31 Consult to Nephrology Routine Consulting Provider: Laurie Draper Does the patient have a Rheologist who follows them?: No Preferred Nephrology Imagery Analyst:: Dragline Operator Helper Physician Reason for Consultation: anuric renal failure Notified:: Office Spoke with:: FLORENTINO Date Notified:: 06/03/18 Time Notified:: 14:47 Ordering Provider: CATY 06/04/18 09:44 Consult to Palliative Care Routine Consulting Provider: Cesar Gutiérrez Reason for Consultation: assist with deciding goals of therapy Notified:: Service Spoke with:: danya Date Notified:: 06/04/18 Time Notified:: 09:51 Ordering Provider: CATY Discharge Sum: Diag - PCOD Cause of : Cardiac arrest Discharge Sum: Summary - Date and Time Date of admission: 06/02/18 11:42 Date of : 06/06/18 Time of : 06:30 - Summary Details: 06/02: This is a 82-year-old aa female. Date of admission 06/02/2018. Date of consultation 06/02/2018. Past medical history includes Parkinson's disease, history of TIA, severe spinal stenosis, hypertension, hyperlipidemia, JULI, COPD , hiatal hernia, gastroesophageal reflux disease and depression. He has LVH and chronic low back pain. She presented to [place] today secondary to altered mental status. According to records, patient was having difficulty breathing yesterday which resolved after nebulizer treatment 3. She has had a fever which resolved with acetaminophen. She has noticed increasing secretions. In the ED, workup showed no acute findings. Patient was given vancomycin Pipracil/tazobactam and ceftriaxone. Blood cultures 2 and UA currently are pending at time of dictation. CT of the thorax were performed which revealed right basilar subpleural airspace disease, distended fluid-filled esophagus, a dorsal column stimulator and a 4.5 cm mass within the left hepatic lobe. Patient was hypoglycemic on admission and remained apical to be altered. Recent blood sugar was 33. She became hypotensive. A central line was emergently placed she was emergently intubated for airway protection. She is currently on norepinephrine drip at 12 mg/min and received vancomycin Pipracil/ tazobactam. 06/03: Remains orally intubated on mechanical ventilation on Levophed for pressor support. And uric despite fluid boluses. Nephrology consult requested. CT abdomen does not show any evidence of hydronephrosis. 06/04: Remains encephalopathic, orally intubated on mechanical ventilation. Gram -negative bacteremia on blood cultures noted. Patient remains on 6 mics of Levophed as well as low-dose vasopressin for pressor support. Has not had any urine output since yesterday morning. Worsening mottling noted over lower extremities extending up to the thighs. Worsening platelet count and metabolic acidosis. 06/05: Remains encephalopathic, orally intubated on mechanical ventilation. Family planning on de-escalation of therapy with terminal wean and comfort measures later today for palliative care. Assessment and Plan - Assessment and Plan on day of expiration. Plan: Neuro/Psych: Acute toxic metabolic encephalopathy History of TIAs Parkinson's disease propofol/fentanyl drip for sedation/analgesia while intubated however has not required any sedation and remains encephalopathic Goal of RASS -2 Daily sedation vacation Acetaminophen 650 mg by tube every 6 hours as needed fever CT brain 06/02 revealed no acute intracranial findings Holding escitalopram 10 mg daily/home medication. Holding gabapentin 600 mg 3 times daily. Hold aspirin in view of worsening thrombocytopenia CV: Septic shock History of essential hypertension History of hyperlipidemia Lactic acidosis History of LVH Continue IV fluids. Switched to bicarb drip due to metabolic acidosis Norepinephrine/vasopressin gtt. to maintain mean arterial pressure greater than equal to 65 Serial lactates 2D echo 2010 revealed LVH. EF 55 6%. Diastolic dysfunction. Mild thickening aortic valve and mitral valve. Resp: Acute hypoxemic respiratory failure History of COPD Obstructive sleep apnea on CPAP at night Continue mechanical ventilation, Ventilator bundle Albuterol/ipratropium aerosols every 4 hours with albuterol aerosols every [address] thorax revealed right basilar subpleural airspace disease and small pleural effusion. No masses. GI: Gastroesophageal reflux disease Hiatal hernia 4.5 cm left hepatic mass Transaminitis Patient is on omeprazole 20 mg daily at home. Holding megestrol 40 mg twice daily NGT to LIWS Lansoprazole for GI prophylaxis Docusate sodium/senna 1 tablet for bowel regimen Checking tumor markers CEA, CA-19-9, alpha-fetoprotein and hCG CT abdomen/pelvis revealed a 4.5 cm left hepatic mass : English catheter for accurate I's and O's in a critically ill patient Endo: Hypoglycemia Elevated TSH Sliding scale insulin with Accu-Cheks to maintain euglycemia/every 4 hours low protocol aspart insulin TSH is elevated at 5.7. Check free T4/T3 Started stress dose steroids in view of high pressor requirement. Cortisol level greater than 40. Discontinued Levemir which is ordered on admission. Renal: SCOUT In anuric renal failure. CT abdomen pelvis did not reveal any evidence of obstruction/hydronephrosis. Remains anuric despite multiple fluid boluses. Nephrology consulted. Strict intake output, monitor and replete electrolyte, follow BUN/creatinine. Bicarb drip ordered for metabolic acidosis. Heme: Thrombocytopenia Suspected DIC Monitor CBC daily. Follow trends Check PT/INR PTT and fibrinogen to evaluate for DIC ID: Septic shock Gram-negative bacteremia UTI . ID following Started vancomycin and piperacillin/tazobactam on 06/02 06/02 Blood cultures 2 with gram-negative rods, 06/02 Urine culture Proteus MSK: Severe spinal stenosis with a history of dorsal column stimulator Ordered lower extremity venous Dopplers as well as arterial Dopplers to evaluate for venous/arterial thrombosis. Access -left IJ CVL (06/02) Prophylaxis -GI -lansoprazole -DVT -SCDs Had a long discussion with patient's daughter at bedside on 06/03 regarding critical condition including possible need for renal replacement therapy though not sure if patient will tolerate hemodialysis. Palliative care discussing de-escalation of therapy and comfort measures with family. Family decided regarding proceeding with comfort measures only and terminal wean. Terminal wean performed and patient eventually went into a cardiac arrest and was pronounced on 06/06/18 at 0630 hrs - Additional Data Attending/PCP notified?: Yes Attending physician: Marcel Doherty MD Was code activated?: No (patient DNR, comfort measures) Autopsy requested?: No Advance directives: Unknown
== END 2018-06-06 06:32 | disposition expired ==
LOC: NEPC 07:48 → EDBD 11:42 → NEDA 11:42 → HIMC 15:49
PROVIDERS: ADMIT Hospitalist; ATTEND Hospitalist